=== PATIENT | male | born 1965 | race Caucasian/White ===

== ENCOUNTER 2023-10-13 14:24 | Outpatient (CLI) | payer OTHER, SELFPAY ==
--- NOTE | ~2023-10-13 | CT_ITS ---
EXAMINATION: CT lumbar spine wo con DATE: 10/13/2023 14:40 INDICATION: Low back pain. Right-sided lumbar radiculopathy. TECHNIQUE: Computed tomography (CT) of the lumbar spine was performed without intravenous contrast. A utomated exposure control and iterative reconstruction technique were employed. The dose-length produ ct was 473.76 mGy-cm. COMPARISON: None FINDINGS: There is 4 degrees dextrocurvature of lumbar spine. There is 3 mm retrolisthesis of T11 on T12. There are lytic lesions involving all bones. There is severely decreased disc height at T11-T12, mildly decreased disc height at T12-L1 and L1-L2, and severely decreased disc height from L2-L3 thro ugh L5-S1. The following disc levels are specifically discussed: L1-L2: The disc is bulging. There is mild bilateral facet joint osteoarthritis. There is mild bilater al neural foraminal stenosis. There is mild central canal stenosis. L2-L3: The disc is bulging. There is severe bilateral facet joint osteoarthritis. There is mild bilat eral neural foraminal stenosis. There is mild central canal stenosis. L3-L4: The disc is bulging. There is severe bilateral facet joint osteoarthritis. There is moderate b ilateral neural foraminal stenosis. There is mild central canal stenosis. L4-L5: The disc is bulging. There is severe bilateral facet joint osteoarthritis. There is moderate b ilateral neural foraminal stenosis. There is mild central canal stenosis. L5-S1: The disc is bulging. There is severe bilateral facet joint osteoarthritis. There is moderate b ilateral neural foraminal stenosis. There is mild central canal stenosis. IMPRESSION: 1. Widespread lytic bone lesions, consistent with multiple myeloma versus metastatic disease. 2. Severe lumbar spondylosis. Reviewed, dictated and finalized at location E. IMPRESSION: 1. Widespread lytic bone lesions, consistent with multiple myeloma versus metas tatic disease. 2. Severe lumbar spondylosis.
== END 2023-10-13 14:25 ==
PROVIDERS: PCP Family Medicine; Visit Provider Family Medicine
DX: M51.36 Other intervertebral disc degeneration, lumbar region (principal); M43.06 Spondylolysis, lumbar region
CPT/HCPCS: 72131

== ENCOUNTER 2023-10-22 12:46 | Outpatient (CLI) | payer OTHER, SELFPAY ==
--- NOTE | ~2023-10-22 | CT_ITS ---
EXAMINATION: CT soft tiss nk chst ab pel w DATE: 10/22/2023 13:28 INDICATION: Lytic bone lesions. Tonsil cancer. TECHNIQUE: Computed tomography (CT) of the neck, chest, abdomen, and pelvis was performed with 100 mL Omnipaque 350 intravenous contrast. Automated exposure control and iterative reconstruction techniqu e were employed. The dose-length product was 1415.74 mGy-cm. COMPARISON: None FINDINGS: NECK CT: There is a 2.6 cm extra-axial mass in left frontal temporal region with skull involvement. There are no pathologically enlarged lymph nodes. CHEST CT: There is mild emphysema. There is mild atelectasis bilaterally. There is a small left pleural effusio n with nodular pleural thickening. The heart size is normal. No pericardial effusion. There is bilate ral gynecomastia. There is a small sliding hiatal hernia. There are multiple scattered lytic lesions of bone including the sternum, most levels of the spine, the right scapula, and the left ninth rib. T here is a healing fracture of left 10th rib. ABDOMEN/PELVIS CT: There is a 10 mm cyst in the liver. The gallbladder is contracted. Calcifications in the spleen are c onsistent with old granulomatous disease. The pancreas, adrenal glands, and kidneys are normal. The p rostate is moderately enlarged. There is diverticulosis of the colon without evidence of diverticulit is. There are no dilated loops of bowel. The appendix is normal. There is a mildly enlarged left para -aortic node. There are bilateral inguinal hernias containing fat. There are scattered lytic lesions with involvement of the pelvis and all lumbar spine levels. IMPRESSION: 1. Widespread lytic lesions of bone and left-sided small malignant pleural effusion, consistent with metastatic disease versus multiple myeloma. Consider ultrasound-guided core needle biopsy of the pleu ra. 2. Mildly enlarged left para-aortic lymph node. 3. 2.6 cm extra-axial mass in left frontal temporal region with skull involvement, which may be metas tatic disease or multiple myeloma or a meningioma. Reviewed, dictated and finalized at location A. IMPRESSION: 1. Widespread lytic lesions of bone and left-sided small malignant pleural effu lincoln, consistent with metastatic disease versus multiple myeloma. Consider ultr asound-guided core needle biopsy of the pleura. 2. Mildly enlarged left para-aortic lymph node. 3. 2.6 cm extra-axial mass in left frontal temporal region with skull involveme nt, which may be metastatic disease or multiple myeloma or a meningioma.
== END 2023-10-22 12:47 ==
LOC: MICIMG 12:47
PROVIDERS: PCP Family Medicine; Visit Provider Family Medicine
DX: M89.9 Disorder of bone, unspecified (principal); Z85.818 Personal history of malignant neoplasm of other sites of lip, oral cavity, and pharynx
CPT/HCPCS: 70491; 71260; 74177; Q9967

== ENCOUNTER 2023-10-29 13:49 | Outpatient (CLI) | payer OTHER, SELFPAY ==
--- NOTE | ~2023-10-29 | MR_ITS ---
EXAMINATION: MR brain/brain stem wo/w con DATE: 10/29/2023 14:25 INDICATION: Tonsil cancer. Skull mass. TECHNIQUE: Magnetic resonance imaging (MRI) of the brain and brainstem was performed without and with 14 mL MultiHance intravenous contrast. COMPARISON: CT neck 04/22/2024 FINDINGS: There are scattered areas of nonspecific increased T2-weighted signal intensity in the cere bral white matter, which is within normal limits for the patient's age. In the left frontal temporal region, there is a 4.1 x 2.8 x 4.8 cm extra-axial mass with skull involvement, dural tails, and tempo ralis muscle involvement. There is no acute ischemic infarct or intracranial hemorrhage. The ventricl es are normal in size. The orbits are normal. The paranasal sinuses are clear. IMPRESSION: 1. 4.8 cm extra-axial mass in the left frontal temporal region with skull involvement and temporalis muscle involvement, most likely metastatic disease or multiple myeloma. Reviewed, dictated and finalized at location A. IMPRESSION: 1. 4.8 cm extra-axial mass in the left frontal temporal region with skull invol vement and temporalis muscle involvement, most likely metastatic disease or mul tiple myeloma.
== END 2023-10-29 13:50 ==
PROVIDERS: Visit Provider Family Medicine
DX: M89.9 Disorder of bone, unspecified (principal)
CPT/HCPCS: 70553; A9577

== ENCOUNTER 2024-03-19 17:44 | Inpatient (IN) | payer OTHER, SELFPAY ==
[2024-03-19] VITALS (7 sets, daily range): BP systolic 149–156; BP diastolic 92–104; PULSE 84–94; RESP 16–28; TEMP 36.3–36.9; O2SAT 90–98; BMI 27.3
--- NOTE | ~2024-03-19 | XR_ITS ---
EXAMINATION: XR chest 2V DATE: 03/19/2024 18:20 INDICATION: Fluid on lungs. TECHNIQUE: Frontal and lateral views of the chest were obtained. COMPARISON: Chest CT 10/22/2023 FINDINGS: A calcified right lung nodule and calcified right hilar lymph nodes are consistent with old granulomatous disease. There is a trace right pleural effusion. There is a large left pleural effusi on. There are airspace opacities at left lung base. No pneumothorax. The heart size is obscured. IMPRESSION: 1. Large left pleural effusion. 2. Airspace opacities at left lung base, consistent with atelectasis versus pneumonia. Reviewed, dictated and finalized at location A. CULTURAL SYSTEMS SPECIALIST IMPRESSION: 1. Large left pleural effusion. 2. Airspace opacities at left lung base, consistent with atelectasis versus pne umonia.
--- NOTE | ~2024-03-19 | US_ITS ---
EXAMINATION: US thoracentesis DATE: 03/20/2024 11:15 INDICATION: Large left pleural effusion TECHNIQUE: The procedure and its risks and benefits were discussed with the patient. Potential risks discussed included bleeding, infection, and pneumothorax. The patient understood the risks and agreed to proceed. The skin was prepped and draped in sterile fashion. 1% lidocaine was used for local anes thesia. Under ultrasound guidance, a 5 Fr catheter with trochar was advanced into the left pleural ef fusion. Fluid was aspirated. The catheter was removed, and a dressing was applied. There were no imme diate complications. FINDINGS: Ultrasound images demonstrate a large left pleural effusion and the catheter within the fluid. IMPRESSION: 1. Successful ultrasound-guided thoracentesis yielding 1100 mL of clear yellow fluid. Reviewed, dictated and finalized at location A. INUOUS MINER OPERATOR
--- NOTE | ~2024-03-19 | XR_ITS ---
EXAMINATION: [id number] DATE: 03/20/2024 10:51 INDICATION: Large left pleural effusion postthoracentesis TECHNIQUE: PA and lateral views of the chest were obtained. COMPARISON: 03/19/2024 at 6:15 PM FINDINGS: Decrease in size of a still large left pleural effusion with opacification of the left mid to lower l isidoro zone. Right lung remains clear. No pulmonary edema in the aerated portions the lungs. No pneumoth orax or right-sided pleural effusion. The left side of the cardiac silhouette is obscured. Mild upper thoracic levocurvature and mild mid thoracic dextrocurvature. Multiple chronic compression fractures in the mid to lower thoracic spine with moderate spondylosis. Destruction of a significant portion o f the posterior left ninth rib suspicious for metastatic disease. IMPRESSION: 1. Decreased size of a still large left pleural effusion with associated atelectasis. Underlying sarahy gnancy or pneumonia not excludable. 2. Extensive destructive change of the posterior left ninth rib suspicious for metastatic disease. Reviewed, dictated and finalized at location A. RVISOR CONTACT AND SERVICE CLERKS IMPRESSION: 1. Decreased size of a still large left pleural effusion with associated atelec tasis. Underlying malignancy or pneumonia not excludable. 2. Extensive destructive change of the posterior left ninth rib suspicious for metastatic disease.
--- NOTE | 2024-03-19 18:22 | ECG_ITS ---
Test Date: 2024-03-19 18:31:45 Measurements Intervals [place] Rate: 88 P: 41 IL: 160 QRS: 10 QRSD: 93 T: 40 QT: 329 QTc: 398 Interpretive Statements SINUS RHYTHM CANNOT R/O SEPTAL INFARCT, AGE INDETERMINATE BASELINE ARTIFACT- I, II, AVR, AVL, AVF, V1 ABNORMAL ECG No previous ECG available for comparison Electronically Signed On 03-19-2024 19:03:25 BRANDS EDITOR by Lazarus Giraldo D.O.
[2024-03-19 18:40] LABS: Basophils Absolute Auto 0.1 K/mm3 (0.0-0.1); Basophils Percent Auto 0.7 % (0.2-1.2); Eosinophils Absolute Auto 0.2 K/mm3 (0-0.3); Eosinophils Percent Auto 2.1 % (0-4.4); Hematocrit 45.5 % (42.0-52.0); Hemoglobin 15.4 g/dL (14.0-18.0); Immature Granulocyte Absolute 0.06 K/mm3 (0.00-0.031); Immature Granulocyte Percent A 0.7 % (0-0.5); Immature Platelet Fraction Pct 1.5 % (0.9-11.2); Lymphocytes Absolute Auto 0.71 K/mm3 (0.9-3.2); Lymphocytes Percent Auto 8.6 % (18.3-44.2); Mean Corpuscular HGB Conc 33.8 g/dl (32-36); Mean Corpuscular Hemoglobin 30.1 pg (26-34); Mean Corpuscular Volume 88.9 fl (80-100); Mean Platelet Volume 9.3 fl (7.4-10.4); Monocytes Percent Auto 11.9 % (2.6-8.5); Neutrophils Absolute Auto 6.2 K/mm3 (1.3-6.7); Platelet Count Result 387 k/mm3 (150-375); Red Blood Count 5.12 M/mm3 (4.6-6.20); Red Cell Distribution Width 13.6 % (11.5-14.5); White Blood Count 8.2 K/mm3 (4.5-10.0)
[2024-03-19 18:53] LABS: Alanine Aminotransferase 30 U/L (6-50); Albumin Level 4.6 g/dL (3.5-5.1); Alkaline Phosphatase 116 U/L (38-126); Anion Gap 10 mmol/L (4-12); Aspartate Amino Transferase 114 U/L (17-59); Bilirubin,Total 0.5 mg/dL (0.2-1.3); Blood Urea Nitrogen 14 mg/dL (9-20); Calcium 10.2 mg/dL (8.4-10.2); Carbon Dioxide 24 mmol/L (22-30); Chloride 99 mmol/L (98-107); Estimated CRCL calculation 81 ml/min; Estimated Glomerular Filt Rate > 60; Glucose 120 mg/dL (65-110); Potassium 4.1 mmol/L (3.4-5.0); Sodium 133 mmol/L (137-145)
[2024-03-19 18:54] LABS: Lactic Acid Reflex 2.3 mmol/L (0.7-2.0)
[2024-03-19 18:55] LABS: INR 0.9; Prothrombin Time 12.9 Seconds (11.1-14.7)
[2024-03-19 18:56] LABS: Partial Thromboplastin Time 31.2 Seconds (22.3-36.8)
[2024-03-19 19:04] LABS: NT Pro B Type Natriuretic Pept < 20 pg/mL (19.9-100); Troponin I < 0.012 ng/mL (0.000-0.034)
--- NOTE | 2024-03-19 19:37 | ED_ITS ---
HPI - General Adult General Chief complaint: Unspecified <EM Oliveira Last Filed: 03/20/24 01:36> Stated complaint: NEEDS THORACENTESIS <EM Oliveira Last Filed: 03/20/24 01:36> Time Seen by Provider: 03/19/24 18:22 <EM Oliveira Last Filed: 03/20/24 01:36> Source: patient and old records reviewed <EM Oliveira Filed: 03/20/24 01:36> Mode of arrival: ambulatory <EM Oliveira Filed: 03/20/24 01:36> Limitations: no limitations <EM Oliveira Filed: 03/20/24 01:36> History of Present Illness HPI narrative: Patient is a 59 y/o male who presents to the ED with c/o large L sided pleural effusion. Patient has a history of a squamous cell carcinoma and is currently on chemotherapy for this. Sees Dr. Garcia with Oncology at [facility]. Reports he has had a persistent cough over the past 6 weeks. Has had increased shortness breath over the last 1.5 weeks. Was seen by his primary care doctor today and had outpatient chest x-ray performed which showed a large left-sided pleural effusion. Patient was sent to the ED for further evaluation. Patient reports he did have history of previous pleural effusion around 5-6 weeks ago which required drainage. He denies any fevers, peripheral edema, CP. <EM Oliveira Filed: 03/20/24 01:36> Related Data Home medications: Home Medications Medication Instructions Recorded Confirmed albuterol sulfate 90 mcg/actuation 2 puff inhalation Q4-6H PRN 03/19/24 03/19/24 aerosol inhaler Wheezing escitalopram oxalate 10 mg tablet 10 mg PO DAILY 03/19/24 03/19/24 oxycodone 5 mg tablet 5 mg PO BID PRN Pain 03/19/24 03/19/24 tobramycin 0.3 %-dexamethasone 0.1 1 drp LEFT EYE DAILY 03/19/24 03/19/24 % eye drops,suspension <Helen Begrer PA-C - Last Filed: 03/20/24 01:36> Allergies/adverse reactions: Allergies Allergy/AdvReac Type Severity Reaction Status Date / Time No Known Allergies Allergy Verified 03/19/24 18:35 <Helen Berger PA-C - Last Filed: 03/20/24 01:36> Review of Systems Review of Systems: All systems reviewed & are unremarkable except as noted in HPI. <Helen Berger PA-C - Last Filed: 03/20/24 01:36> All systems reviewed & are unremarkable except as noted in HPI and below <Helen Berger PA-C - Last Filed: 03/20/24 01:36> [facility] Social History Social History: Social History Alcohol intake: current Drinks per week: 3 Substance use: never Do You Feel Safe in your Home?: Yes Lack of Transportation: No Lack of Food: Never True Current Housing: I Have Housing Concerned About Future Housing: No Difficulty Paying Gas/Electric Bills: No Difficulty Paying for Meds: No Currently Unemployed: No Education: Bachelor's Degree Difficulty w/ Childcare or Family Care: No Spiritual care concerns: No <Helen Berger PA-C - Last Filed: 03/20/24 01:36> Exam Narrative: GENERAL: Well appearing, well-nourished, non-toxic, in no acute distress. HEAD: Normocephalic, atraumatic. RESPIRATORY: Airway patent, respirations nonlabored. Relatively clear lung sounds on right lung. Decreased lung sounds throughout left lung up to mid to upper lung herrera. CARDIOVASCULAR: Regular rate and rhythm without murmurs, rubs, or gallops. MUSCULOSKELETAL: Moves all extremities. No gross deformities. No peripheral edema. SKIN: Warm, dry, normal color. NEURO: A&O X3. Speech clear. No ataxic movements. PSYCHIATRIC: Appropriate mood and affect. Normal interaction. <Helen Berger PA-C - Last Filed: 03/20/24 01:36> Course ANIMAL DAMAGE CONTROL AGENT/PA Physician Supervision I agree with midlevel documentation; I performed the medical decision making component of this evaluation. I had independent [id number] time with the patient and performed my own independent evaluation and assessment. Patient has a large left-sided pleural effusion on chest x-ray and would benefit from a thoracentesis. Given his cancer history this could be a malignant effusion verses a transudative infusion. He is hemodynamically stable and on room oxygen at this time saturating well. Patient was admitted to the hospital for planned thoracentesis on inpatient basis. <Amor Ramey MD - Last Filed: 03/20/24 08:06> Vital Signs Vital signs: Vital Signs Temperature 36.9 C 03/19/24 17:47 Pulse Rate 94 03/19/24 17:47 Respiratory Rate 20 03/19/24 17:47 Blood Pressure 150/96 H 03/19/24 17:47 Pulse Oximetry 96 03/19/24 17:47 Oxygen Delivery Room Air 03/19/24 17:47 Temperature 36.6 C 03/20/24 06:00 Pulse Rate 86 03/20/24 06:00 Respiratory Rate 18 03/20/24 06:00 Blood Pressure 128/82 03/20/24 06:00 Pulse Oximetry 95 03/20/24 06:00 Oxygen Delivery Room Air 03/19/24 23:51 <Helen Berger PA-C - Last Filed: 03/20/24 01:36> Vital Signs Temperature 36.9 C 03/19/24 17:47 Pulse Rate 94 03/19/24 17:47 Respiratory Rate 20 03/19/24 17:47 Blood Pressure 150/96 H 03/19/24 17:47 Pulse Oximetry 96 03/19/24 17:47 Oxygen Delivery Room Air 03/19/24 17:47 Temperature 36.6 C 03/20/24 06:00 Pulse Rate 86 03/20/24 06:00 Respiratory Rate 18 03/20/24 06:00 Blood Pressure 128/82 03/20/24 06:00 Pulse Oximetry 95 03/20/24 06:00 Oxygen Delivery Room Air 03/19/24 23:51 <Amor Ramey MD - Last Filed: 03/20/24 08:06> Medical Decision Making MDM Narrative Medical decision making narrative: Patient presented to ED with abnormal outpatient chest x-ray, showing large left-sided pleural effusion. Currently undergoing chemotherapy treatment for squamous cell carcinoma. Vital signs are stable upon arrival. Patient is in no acute distress. No respiratory distress. Oxygen stable on room air. Laboratory studies are fairly unremarkable. No leukocytosis. Minimal elevation of lactic acid to 2.3. This normalized without intervention. EKG is without concerning ischemic changes. Troponin undetectable. BNP within normal range. CXR with large L sided pleural effusion. Does show possible pneumonia. Patient denies any recent fevers. He does report having a cough for the last several weeks. Again no leukocytosis. Lesser suspicion for pneumonia. Patient will however require therapeutic thoracentesis. Will place order for this to be performed tomorrow. Patient is not on any anticoagulation. Discussed case with Dr. Dykes, hospitalist, accepted patient for admission. Patient and family in agreement with plan and admission. <EM Oliveira Last Filed: 03/20/24 01:36> Medical Records Medical records reviewed: Yes I reviewed the external patient's medical records. <EM Oliveira Last Filed: 03/20/24 01:36> Vital Signs Vital Signs: Vital Signs Temperature 36.9 C 03/19/24 17:47 Pulse Rate 94 03/19/24 17:47 Respiratory Rate 20 03/19/24 17:47 Blood Pressure 150/96 H 03/19/24 17:47 Pulse Oximetry 96 03/19/24 17:47 Oxygen Delivery Room Air 03/19/24 17:47 Temperature 36.6 C 03/20/24 06:00 Pulse Rate 86 03/20/24 06:00 Respiratory Rate 18 03/20/24 06:00 Blood Pressure 128/82 03/20/24 06:00 Pulse Oximetry 95 03/20/24 06:00 Oxygen Delivery Room Air 03/19/24 23:51 <Helen Berger PA-C - Last Filed: 03/20/24 01:36> Vital Signs Temperature 36.9 C 03/19/24 17:47 Pulse Rate 94 03/19/24 17:47 Respiratory Rate 20 03/19/24 17:47 Blood Pressure 150/96 H 03/19/24 17:47 Pulse Oximetry 96 03/19/24 17:47 Oxygen Delivery Room Air 03/19/24 17:47 Temperature 36.6 C 03/20/24 06:00 Pulse Rate 86 03/20/24 06:00 Respiratory Rate 18 03/20/24 06:00 Blood Pressure 128/82 03/20/24 06:00 Pulse Oximetry 95 03/20/24 06:00 Oxygen Delivery Room Air 03/19/24 23:51 <Amor Ramey MD - Last Filed: 03/20/24 08:06> Lab Data Lab results reviewed: Yes I reviewed the patient's lab results. <Helen Berger PA-C - Last Filed: 03/20/24 01:36> Result diagrams: 03/19/24 18:32 03/19/24 18:32 <Helen Berger PA-C - Last Filed: 03/20/24 01:36> Labs: Lab Results 03/19/24 03/19/24 Range/Units 18:32 21:53 WBC 8.2 (4.5-10.0) K/mm3 RBC 5.12 (4.6-6.20) M/mm3 Hgb 15.4 (14.0-18.0) g/dL Hct 45.5 (42.0-52.0) % MCV 88.9 (80-100) fl MCH 30.1 (26-34) pg MCHC 33.8 (32-36) g/dl RDW 13.6 (11.5-14.5) % Plt Count 387 H (150-375) k/mm3 MPV 9.3 (7.4-10.4) fl Immature Gran % (Auto) 0.7 H (0-0.5) % Neut % (Auto) 76.0 H (45.5-73.1) % Lymph % (Auto) 8.6 L (18.3-44.2) % Rolette % (Auto) 11.9 H (2.6-8.5) % Eos % (Auto) 2.1 (0-4.4) % Baso % (Auto) 0.7 (0.2-1.2) % Lymph # (Auto) 0.71 L (0.9-3.2) K/mm3 Rolette # (Auto) 1.0 H (0.1-0.6) K/mm3 Eos # (Auto) 0.2 (0-0.3) K/mm3 Baso # (Auto) 0.1 (0.0-0.1) K/mm3 Abs Immat Gran (auto) 0.06 H (0.00-0.031) K/mm3 Absolute Neuts (auto) 6.2 (1.3-6.7) K/mm3 Absolute Nucleated RBC 0.000 (0.0-0.012) K/mm3 Nucleated RBC % 0.0 (0.0-0.2) % % Immature Plt Fraction 1.5 (0.9-11.2) % PT 12.9 (11.1-14.7) Seconds INR 0.9 APTT 31.2 (22.3-36.8) Seconds Sodium 133 L (137-145) mmol/L Potassium 4.1 (3.4-5.0) mmol/L Chloride 99 (98-107) mmol/L Carbon Dioxide 24 (22-30) mmol/L Anion Gap 10 (4-12) mmol/L BUN 14 (9-20) mg/dL Creatinine 0.70 (0.7-1.3) mg/dL Estim Creat Clear Calc 81 ml/min Estimated GFR > 60 (59 - ) Glucose 120 H (65-110) mg/dL Lactic Acid 2.3 H 2.0 (0.7-2.0) mmol/L Calcium 10.2 (8.4-10.2) mg/dL Total Bilirubin 0.5 (0.2-1.3) mg/dL AST 114 H (17-59) U/L ALT 30 (6-50) U/L Alkaline Phosphatase 116 (38-126) U/L Troponin I < 0.012 (0.000-0.034) ng/mL NT-Pro-B Natriuret Pep < 20 (19.9-100) pg/mL Total Protein 9.0 H (6.3-8.2) g/dL Albumin 4.6 (3.5-5.1) g/dL <Helen Berger PA-C - Last Filed: 03/20/24 01:36> Lab Results 03/19/24 03/19/24 Range/Units 18:32 21:53 WBC 8.2 (4.5-10.0) K/mm3 RBC 5.12 (4.6-6.20) M/mm3 Hgb 15.4 (14.0-18.0) g/dL Hct 45.5 (42.0-52.0) % MCV 88.9 (80-100) fl MCH 30.1 (26-34) pg MCHC 33.8 (32-36) g/dl RDW 13.6 (11.5-14.5) % Plt Count 387 H (150-375) k/mm3 MPV 9.3 (7.4-10.4) fl Immature Gran % (Auto) 0.7 H (0-0.5) % Neut % (Auto) 76.0 H (45.5-73.1) % Lymph % (Auto) 8.6 L (18.3-44.2) % Rolette % (Auto) 11.9 H (2.6-8.5) % Eos % (Auto) 2.1 (0-4.4) % Baso % (Auto) 0.7 (0.2-1.2) % Lymph # (Auto) 0.71 L (0.9-3.2) K/mm3 Rolette # (Auto) 1.0 H (0.1-0.6) K/mm3 Eos # (Auto) 0.2 (0-0.3) K/mm3 Baso # (Auto) 0.1 (0.0-0.1) K/mm3 Abs Immat Gran (auto) 0.06 H (0.00-0.031) K/mm3 Absolute Neuts (auto) 6.2 (1.3-6.7) K/mm3 Absolute Nucleated RBC 0.000 (0.0-0.012) K/mm3 Nucleated RBC % 0.0 (0.0-0.2) % % Immature Plt Fraction 1.5 (0.9-11.2) % PT 12.9 (11.1-14.7) Seconds INR 0.9 APTT 31.2 (22.3-36.8) Seconds Sodium 133 L (137-145) mmol/L Potassium 4.1 (3.4-5.0) mmol/L Chloride 99 (98-107) mmol/L Carbon Dioxide 24 (22-30) mmol/L Anion Gap 10 (4-12) mmol/L BUN 14 (9-20) mg/dL Creatinine 0.70 (0.7-1.3) mg/dL Estim Creat Clear Calc 81 ml/min Estimated GFR > 60 (59 - ) Glucose 120 H (65-110) mg/dL Lactic Acid 2.3 H 2.0 (0.7-2.0) mmol/L Calcium 10.2 (8.4-10.2) mg/dL Total Bilirubin 0.5 (0.2-1.3) mg/dL AST 114 H (17-59) U/L ALT 30 (6-50) U/L Alkaline Phosphatase 116 (38-126) U/L Troponin I < 0.012 (0.000-0.034) ng/mL NT-Pro-B Natriuret Pep < 20 (19.9-100) pg/mL Total Protein 9.0 H (6.3-8.2) g/dL Albumin 4.6 (3.5-5.1) g/dL <Amor Ramey MD - Last Filed: 03/20/24 08:06> Imaging Data Attestation: I personally reviewed and interpreted this imaging study as follows: <Helen Berger PA-C - Last Filed: 03/20/24 01:36> Radiologist's impression: ITS Impressions Chest X-Ray 03/19/24 18:30 IMPRESSION: 1. Large left pleural effusion. 2. Airspace opacities at left lung base, consistent with atelectasis versus pneumonia. <Helen Berger PA-C - Last Filed: 03/20/24 01:36> ECG Data EKG #1: Attestation: I personally reviewed and interpreted this ECG as follows: <Helen Berger PA-C - Last Filed: 03/20/24 01:36> ECG completion date: 03/19/24 <Helen Berger PA-C - Last Filed: 03/20/24 01:36> ECG completion time: 18:31 <Helen Berger PA-C - Last Filed: 03/20/24 01:36> EKG Interpretation: normal rate (88), sinus rhythm and non-specific ST changes <Helen Berger PA-C - Last Filed: 03/20/24 01:36> Discharge Plan Discharge Clinical Impression: Pleural effusion, Squamous cell carcinoma <EM Oliveira Last Filed: 03/20/24 01:36> Patient Disposition: Still a Patient <EM Oliveira Last Filed: 03/20/24 01:36> Condition: Stable <EM Oliveira Last Filed: 03/20/24 01:36>
[2024-03-19 21:36] LABS: Reflex Lactic Acid Yes or No Add Lactic
--- NOTE | 2024-03-19 23:05 | ADMGEN ---
This patient, Kiet Yousif, was admitted to [facility] Surg Room 316-02. Patient/family oriented to hospital policies and general routines including ID bracelet, bed and alarms, visiting hours, pain management, procedures, bathroom and other care routines, personal items, smoking policy, room service/diet, and visiting hours. Information on how to activate the Rapid Response Team has been discussed. Patient/Family are encouraged to report perceived risks to care and to ask questions if they do not understand what they are told or what they should do.
--- NOTE | 2024-03-19 23:58 | PM.IMHP ---
H&P: HPI History of Present Illness Date/Time: 03/19/24 23:58 Chief Complaint: shortness of breath Narrative: This is a 59-year-old male with past medical history significant for squamous cell carcinoma of the lung, recurrent pleural effusions, patient is undergoing chemotherapy. Comes to the emergency room with sudden onset of shortness of breath, patient denies any fevers, rigors, chills, sputum production. Preliminary workup was significant for large left-sided pleural effusion. Patient has been placed in observation for further evaluation management and treatment. EXAMINATION: XR chest 2V DATE: 03/19/2024 18:20 INDICATION: Fluid on lungs. TECHNIQUE: Frontal and lateral views of the chest were obtained. COMPARISON: Chest CT 10/22/2023 FINDINGS: A calcified right lung nodule and calcified right hilar lymph nodes are consistent with old granulomatous disease. There is a trace right pleural effusion. There is a large left pleural effusion. There are airspace opacities at left lung base. No pneumothorax. The heart size is obscured. IMPRESSION: 1. Large left pleural effusion. 2. Airspace opacities at left lung base, consistent with atelectasis versus pneumonia. Review of Systems Review of Systems: Shortness of breath [facility] Social History Social History Alcohol intake: current Drinks per week: 3 Substance use: never Do You Feel Safe in your Home?: Yes Lack of Transportation: No Lack of Food: Never True Current Housing: I Have Housing Concerned About Future Housing: No Difficulty Paying Gas/Electric Bills: No Difficulty Paying for Meds: No Currently Unemployed: No Education: Bachelor's Degree Difficulty w/ Childcare or Family Care: No Spiritual care concerns: No Meds Home Medications and Allergies Home Medications Medication Instructions Recorded Confirmed Type albuterol sulfate 90 mcg/actuation 2 puff inhalation Q4-6H PRN 03/19/24 03/19/24 History aerosol inhaler Wheezing escitalopram oxalate 10 mg tablet 10 mg PO DAILY 03/19/24 03/19/24 History oxycodone 5 mg tablet 5 mg PO BID PRN Pain 03/19/24 03/19/24 History tobramycin 0.3 %-dexamethasone 0.1 1 drp LEFT EYE DAILY 03/19/24 03/19/24 History % eye drops,suspension Allergies Allergy/AdvReac Type Severity Reaction Status Date / Time No Known Allergies Allergy Verified 03/19/24 18:35 Vital Signs Vital Signs - 24 hr 03/19/24 17:47 03/19/24 18:46 03/19/24 19:17 Temperature 98.4 F Pulse Rate 94 94 Respiratory Rate 20 28 H 22 H Blood Pressure 150/96 H 155/104 H Pulse Oximetry 96 95 98 Oxygen Delivery Room Air 03/19/24 19:17 03/19/24 21:50 03/19/24 23:04 Temperature 98 F 97.6 F 97.4 F L Pulse Rate 93 90 84 Respiratory Rate 25 H 16 22 H Blood Pressure 156/98 H 149/103 H 154/92 H Pulse Oximetry 96 94 90 Oxygen Delivery 03/19/24 23:45 03/19/24 23:51 Temperature Pulse Rate Respiratory Rate Blood Pressure Pulse Oximetry 90 93 Oxygen Delivery Room Air Room Air Exam Narrative: laying in a stretcher Const: General: comfortable, no acute distress, well developed, alert, awake and average body habitus Nutritional Appearance: average body habitus Orientation/consciousness: patient oriented x3 HENMT: Head: normal to inspection, normocephalic and atraumatic Ears: hearing grossly normal bilaterally Face/Nose/Sinus: normal facial exam Face and sinus: normal facial exam Eyes: General: appearance normal, both eyes and all related structures Pupils: Equal, round and reactive pupils present EOM: EOMs intact bilaterally Neck: Neck: full ROM, no lymphadenopathy and no JVD Thyroid: thyroid normal Lymphatic: no lymphadenopathy noted Resp: Effort & Inspection: normal respiratory effort and able to speak in complete sentences Auscultation: diminished lung sounds on the left throughout Cardio: Jugular venous distension: no JVD Rate: regular rate Rhythm: regular rhythm Heart sounds: S1 normal heart sound present and S2 normal heart sound present GI: GI Palp: Yes Soft to palpation and Yes No hepatosplenomegaly present : General: Yes deferred Skin: Rashes: no rashes Wounds: no wounds Neuro: General: patient oriented x3 and CN's II-XI intact bilaterally Cranial nerves: Yes CN's II-XII intact bilaterally and Yes Equal, round and reactive pupils present Cognition (Neuro): normal cognition Speech: normal speech Gait exam (Neuro): Normal gait present Motor exam (neuro): 5/5 motor strength present throughout Extrem: General: normal to inspection, full ROM, no joint enlargement and no pedal edema H&P: Results Labs Labs: Short CBC 03/19/24 Range/Units 18:32 WBC 8.2 (4.5-10.0) K/mm3 Hgb 15.4 (14.0-18.0) g/dL Hct 45.5 (42.0-52.0) % Plt Count 387 H (150-375) k/mm3 BMP 03/19/24 18:32 Sodium 133 L Potassium 4.1 Chloride 99 Carbon Dioxide 24 BUN 14 Creatinine 0.70 Glucose 120 H Calcium 10.2 Cardiac Enzymes 03/19/24 Range/Units 18:32 Troponin I < 0.012 (0.000-0.034) ng/mL Liver Function 03/19/24 Range/Units 18:32 Total Bilirubin 0.5 (0.2-1.3) mg/dL AST 114 H (17-59) U/L ALT 30 (6-50) U/L Alkaline Phosphatase 116 (38-126) U/L Albumin 4.6 (3.5-5.1) g/dL Assessment and Plan Assessment and plan (1) Pleural effusion: Code(s): J90 - Pleural effusion, not elsewhere classified Status: Acute Assessment and Plan: placed in observation thoracentesis in a.m. ultrasound-guided (2) Squamous cell carcinoma: Status: Acute Assessment and Plan: follow-up in outpatient setting (3) Pneumonia: Code(s): J18.9 - Pneumonia, unspecified organism Status: Acute Assessment and Plan: will start on vancomycin cefepime and Zithromax cultures in progress Hospitalist MIPS Advance Care Plan I have confirmed that the patient's Advanced Care Plan is present, code status is documented, or surrogate decision maker is listed in patient medical record.: Yes Medication Reconciliation I have utilized all available resources to obtain, update and review the patients current medications (includes all prescriptions, OTC, herbals, cannabis, and nutritional supplements).: Yes
[2024-03-20] MEDS: CEFEPIME 2 GM/NS 50 ML 2 GM/50 ML BAG IVPB (04:45)
[2024-03-20] MEDS: AZITHROMYCIN 500 MG/NS 250 ML 500 MG/250 ML BAG 250 MG IVPB (05:16)
[2024-03-20 06:00] VITALS: BP 128/82; PULSE 86; RESP 18; TEMP 36.6; O2SAT 95
[2024-03-20 06:07] LABS: MRSA (PCR) NOT DETECTED (NOT DETECTE)
[2024-03-20] MEDS: VANCOMYCIN 1,750 MG/NS 500 ML 1,750 MG/500 ML BAG 250 MG IVPB (06:17)
[2024-03-20 11:08] LABS: pH Pleural Fluid 7.431 (7.210-7.500)
[2024-03-20 11:41] LABS: Appearance Pleural Fluid Clear (Clear); Pleural fluid source Pleural fluid
[2024-03-20 11:42] LABS: Color Pleural Fluid Yellow (Colorless); Lymphocytes Pleural Fluid 36 %; Macrophages Pleural Fluid 10 %; Monocytes Pleural Fluid 15 %; Neutrophils Pleural Fluid 39 % (0-25); Nucleated Cell Pleural Fluid 209 /uL (0-1000); RBC Pleural Fluid < 2000 /uL (0-10000)
--- NOTE | 2024-03-20 12:20 | P.PNIM_ITS ---
Progress Note: A&P Assessment and Plan (1) Pleural effusion: Code(s): J90 - Pleural effusion, not elsewhere classified Status: Acute Assessment and Plan: placed in observation thoracentesis in a.m. ultrasound-guided (2) Squamous cell carcinoma: Status: Acute Assessment and Plan: follow-up in outpatient setting (3) Pneumonia: Code(s): J18.9 - Pneumonia, unspecified organism Status: Acute Assessment and Plan: will start on vancomycin cefepime and Zithromax cultures in progress Subjective Date/time seen: 03/20/24 12:20 Review of Systems Review of Systems: Shortness of breath Objective Data Vital Signs Vital Signs: Vital Signs - 24 hr 03/19/24 17:47 03/19/24 18:46 03/19/24 19:17 Temperature 98.4 F Pulse Rate 94 94 Respiratory Rate 20 28 H 22 H Blood Pressure 150/96 H 155/104 H Pulse Oximetry 96 95 98 Oxygen Delivery Room Air 03/19/24 19:17 03/19/24 21:50 03/19/24 23:04 Temperature 98 F 97.6 F 97.4 F L Pulse Rate 93 90 84 Respiratory Rate 25 H 16 22 H Blood Pressure 156/98 H 149/103 H 154/92 H Pulse Oximetry 96 94 90 Oxygen Delivery 03/19/24 23:45 03/19/24 23:51 03/20/24 06:00 Temperature 97.9 F Pulse Rate 86 Respiratory Rate 18 Blood Pressure 128/82 Pulse Oximetry 90 93 95 Oxygen Delivery Room Air Room Air Intake/Output Intake/Output: Intake & Output 03/17/24 03/18/24 03/19/24 03/20/24 23:59 23:59 23:59 23:59 Intake Total 425 Output Total 1100 Balance -675 Meds/Results Medications: Active Medications Generic Name Dose Route Start Last Admin Trade Name Freq PRN Reason Stop Dose Admin Acetaminophen 650 mg 03/19/24 22:06 Acetaminophen 325 Mg Tablet PO Q4H PRN Mild Pain (1-3) or Fever Acetaminophen 1,000 mg 03/20/24 03:13 Acetaminophen 500 Mg Tablet PO Q6H PRN Mild Pain (1-3) or Fever Al Hydrox/Mg Hydrox/Simethicone 30 ml 03/20/24 03:13 Mag Hydrox/Al Hydrox/Simeth 30 Ml Udc PO Q6H PRN Indigestion Albuterol 2 puff 03/20/24 03:13 Albuterol Sulfate (*Sp) Aerosol 1 Puff INHALATION Q4-6H PRN Wheezing Escitalopram Oxalate 10 mg 03/20/24 21:00 Escitalopram Oxalate 10 Mg Tablet PO HS BULMARO Cefepime HCl 2 gm in 50 mls @ 100 mls/hr 03/20/24 04:00 03/20/24 05:15 Maxipime 2 Gm/Ns 50 Ml IVPB Infused Q12H BULMARO Infusion Azithromycin 500 mg in 250 mls @ 250 mls/hr 03/20/24 04:00 03/20/24 06:16 Zithromax IVPB Infused Q24H BULMARO Infusion Vancomycin HCl 1,500 mg in 500 mls @ 250 mls/hr 03/20/24 18:00 Vancomycin 1,500 Mg/Ns 500 Ml IVPB Q12H BULMARO Ondansetron HCl 4 mg 03/20/24 03:13 Ondansetron Inj 4 Mg/2 Ml Vial IV PUSH Q6H PRN Nausea And Vomiting Oxycodone HCl 5 mg 03/20/24 03:13 Oxycodone Hcl (*Crx) 5 Mg Tab Ir PO BID PRN Pain 7-10 Polyethylene Glycol 17 gm 03/20/24 03:13 Polyethylene Glycol 3350 17 Gm Powd.Pack PO QAM PRN Constipation Radiology Results: ITS Impressions Thoracentesis Ultrasound 03/20/24 11:58 IMPRESSION: 1. Successful ultrasound-guided thoracentesis yielding 1100 mL of clear yellow fluid. Chest X-Ray 03/20/24 12:00 IMPRESSION: 1. Decreased size of a still large left pleural effusion with associated atelectasis. Underlying malignancy or pneumonia not excludable. 2. Extensive destructive change of the posterior left ninth rib suspicious for metastatic disease. Labs Labs: Laboratory Results - last 24 hr 03/19/24 03/19/24 03/20/24 18:32 21:53 04:41 WBC 8.2 RBC 5.12 Hgb 15.4 Hct 45.5 MCV 88.9 MCH 30.1 MCHC 33.8 RDW 13.6 Plt Count 387 H MPV 9.3 Immature Gran % (Auto) 0.7 H Neut % (Auto) 76.0 H Lymph % (Auto) 8.6 L [place] % (Auto) 11.9 H Eos % (Auto) 2.1 Baso % (Auto) 0.7 Lymph # (Auto) 0.71 L [place] # (Auto) 1.0 H Eos # (Auto) 0.2 Baso # (Auto) 0.1 Abs Immat Gran (auto) 0.06 H Absolute Neuts (auto) 6.2 Absolute Nucleated RBC 0.000 Nucleated RBC % 0.0 % Immature Plt Fraction 1.5 PT 12.9 INR 0.9 APTT 31.2 Sodium 133 L Potassium 4.1 Chloride 99 Carbon Dioxide 24 Anion Gap 10 BUN 14 Creatinine 0.70 Estim Creat Clear Calc 81 Estimated GFR > 60 Glucose 120 H Lactic Acid 2.3 H 2.0 Calcium 10.2 Total Bilirubin 0.5 AST 114 H ALT 30 Alkaline Phosphatase 116 Troponin I < 0.012 NT-Pro-B Natriuret Pep < 20 Total Protein 9.0 H Albumin 4.6 Pleural Fluid Source Pleural Color Pleural Appearance Pleural pH Pleural RBC Pleural Nuc Cells Pleural Neutrophils Pleural Lymphocytes Pleural Monocytes Pleural Macrophages Nasal MRSA (PCR) Not detected 03/20/24 10:21 WBC RBC Hgb Hct MCV MCH MCHC RDW Plt Count MPV Immature Gran % (Auto) Neut % (Auto) Lymph % (Auto) [place] % (Auto) Eos % (Auto) Baso % (Auto) Lymph # (Auto) [place] # (Auto) Eos # (Auto) Baso # (Auto) Abs Immat Gran (auto) Absolute Neuts (auto) Absolute Nucleated RBC Nucleated RBC % % Immature Plt Fraction PT INR APTT Sodium Potassium Chloride Carbon Dioxide Anion Gap BUN Creatinine Estim Creat Clear Calc Estimated GFR Glucose Lactic Acid Calcium Total Bilirubin AST ALT Alkaline Phosphatase Troponin I NT-Pro-B Natriuret Pep Total Protein Albumin Pleural Fluid Source Pleural fluid Pleural Color Yellow Pleural Appearance Clear Pleural pH 7.431 Pleural RBC < 2000 Pleural Nuc Cells 209 Pleural Neutrophils 39 H Pleural Lymphocytes 36 Pleural Monocytes 15 Pleural Macrophages 10 Nasal MRSA (PCR)
[2024-03-20 14:00] VITALS: BP 143/86; PULSE 90; RESP 18; TEMP 37.2; O2SAT 94
--- NOTE | 2024-03-20 19:17 | PM.DS ---
DS: Admitting Diagnosis Discharge Date 03/20/2024 Admitting Diagnosis Pleural effusion DS: Discharge Diagnosis Discharge Diagnosis (1) Pleural effusion: Code(s): J90 - Pleural effusion, not elsewhere classified Status: Acute (2) Pneumonia: Code(s): J18.9 - Pneumonia, unspecified organism Status: Acute (3) Squamous cell carcinoma: Status: Acute DS: Summary Hospital Course Reason for hospitalization: 59-year-old male with past medical history significant for squamous cell carcinoma of the lung, recurrent pleural effusions, patient is undergoing chemotherapy. Comes to the emergency room with sudden onset of shortness of breath, patient denies any fevers, rigors, chills, sputum production. Preliminary workup was significant for large left-sided pleural effusion. Patient has been placed in observation for further evaluation management and treatment Hospital Course: Kiet Yousif is a 59 year old with squamous cell carcinoma of the lung, follows at [facility], admitted for a malignant pleural effusion. He reports gradual shortness of breath over 5 weeks. No fever or chills. WBC normal on admission. An Ultrasound guided thoracentesis was done on 03/20 with 1L of fluid removed. Suspect malignant pleural effusion. Cultures pending at discharge. Treating empirically with Augmentin. Discussed option for staying inpatient to wait for cultures but patient has follow up next week with oncology and preferred to discharge home, and overall low suspicion for infectious etiology. Prescribed a course of Augmentin 875mg BID x5 days since cultures pending, resulted negative after discharge. Cytology was consistent with squamous cell carcinoma. If effusions recurrent, could consider Pleurex. Status at Discharge Cognitive/behavioral status at discharge: A&Ox4 Time Spent with Patient Time attestation: Total time spent providing and/or coordinating discharge services: Exam Narrative: General - Awake and alert. No acute distress Eyes - PERRLA, EOM intact ENT - No thrush, No erythema Neck - No noticeable or palpable swelling Lymph Nodes - No lymphadenopathy Cardiovascular - RRR no m/r/g, no JVD Lungs: Lung herrera decreased on the left, improved aeration after thoracentesis, No wheezing, use of accessory muscles Skin - Skin warm and dry, no wounds or rashes Abdomen - Normal bowel sounds, abdomen soft and nontender Extremities - No edema, cyanosis or clubbing Musculoskeletal - 5/5 strength, normal range of motion, no swollen or erythematous joints. Neurological ? Alert and oriented x 3, CN 2-12 grossly intact. Psych: Normal mood and affect DS: Data Data Completed and Pending Pending studies at discharge: Pending at discharge 03/19/24 22:21 Cytology [PTH] Routine Labs on day of discharge: Labs from last 24 hours 03/20/24 03/20/24 03/20/24 10:48 10:21 04:41 WBC RBC Hgb Hct MCV MCH MCHC RDW Plt Count MPV Immature Gran % (Auto) Neut % (Auto) Lymph % (Auto) [place] % (Auto) Eos % (Auto) Baso % (Auto) Lymph # (Auto) [place] # (Auto) Eos # (Auto) Baso # (Auto) Abs Immat Gran (auto) Absolute Neuts (auto) Absolute Nucleated RBC Nucleated RBC % % Immature Plt Fraction Lactic Acid Pleural Fluid Source Pleural fluid Pleural Color Yellow Pleural Appearance Clear Pleural pH 7.431 Pleural RBC < 2000 Pleural Nuc Cells 209 Pleural Neutrophils 39 H Pleural Lymphocytes 36 Pleural Monocytes 15 Pleural Macrophages 10 Pleural Total Protein Pending Pleural LDH Pending Pleural Glucose Pending Pleural Amylase Pending Nasal MRSA (PCR) Not detected 03/19/24 03/19/24 21:53 18:32 WBC 8.2 RBC 5.12 Hgb 15.4 Hct 45.5 MCV 88.9 MCH 30.1 MCHC 33.8 RDW 13.6 Plt Count 387 H MPV 9.3 Immature Gran % (Auto) 0.7 H Neut % (Auto) 76.0 H Lymph % (Auto) 8.6 L [place] % (Auto) 11.9 H Eos % (Auto) 2.1 Baso % (Auto) 0.7 Lymph # (Auto) 0.71 L [place] # (Auto) 1.0 H Eos # (Auto) 0.2 Baso # (Auto) 0.1 Abs Immat Gran (auto) 0.06 H Absolute Neuts (auto) 6.2 Absolute Nucleated RBC 0.000 Nucleated RBC % 0.0 % Immature Plt Fraction 1.5 Lactic Acid 2.0 Pleural Fluid Source Pleural Color Pleural Appearance Pleural pH Pleural RBC Pleural Nuc Cells Pleural Neutrophils Pleural Lymphocytes Pleural Monocytes Pleural Macrophages Pleural Total Protein Pleural LDH Pleural Glucose Pleural Amylase Nasal MRSA (PCR) Discharge Plan Discharge Attending physician on discharge: Ana Garces Consulting providers: Kiet Ferreira; Lazarus Giraldo; Joe Watts V.; Amor Ramey Discharging Clinician: Ana Garces Anticipated Discharge Date/Time: 03/20/24 14:27 Patient Disposition: Home, Self-Care Activity: other - see discharge instructions Diet: regular Discharge Instructions: May remove bandage and shower tomorrow. Follow up with oncology as scheduled next week. Patient Instructions: Antibiotic Form Stand Alone Forms: General Discharge Information Follow-up/Referrals: Vivek Hernandez M.D. [Primary Care Provider] - (Follow up in 1-2 weeks) Discharge Medications: New amoxicillin-pot clavulanate 875-125 mg tablet 1 tablet PO Q12H Qty: 10 0RF Continued albuterol sulfate 90 mcg/actuation HFA aerosol inhaler 2 puff INHALATION Q4-6H PRN (Reason: Wheezing) tobramycin-dexamethasone 0.3-0.1 % drops,suspension 1 drp LEFT EYE DAILY oxycodone 5 mg tablet 5 mg PO BID PRN (Reason: Pain) Rx Instructions: Pt. does not use much as it causes constipation & fatigue escitalopram oxalate 10 mg tablet 10 mg PO DAILY Date of admission: 03/20/24 07:17 Primary Care Provider: Vivek Hernandez Admitting Provider: Cisco Dykes V. Attending physician on admission: Ana Garces Condition: Stable Hospitalist MIPS Heart Failure (Exclusion) Patient has history of Heart Transplant or Left Ventricular Assistive Device?: No IF YES, STOP HERE Heart Failure (Qualifier) Patient has current or prior documentation of LVEF less than or equal to 40%, or mod/servere depressed LVSF?: No IF NO, STOP HERE
[2024-03-26 18:53] LABS: Glucose Pleural Fluid 84 mg/dL
[2024-03-30 21:24] LABS: Amylase, Pleural Fluid 196 U/L; LDH Pleural Fluid 325 U/L; Total Protein Pleural Fluid 4.4 g/dL
== END 2024-03-20 15:10 | disposition home or self-care (01) | DRG 180 ==
LOC: ANHED 18:26 → ANH3MEDSUR 22:47
PROVIDERS: Admitting Provider Internal Medicine; Emergency Provider Physician Assistant; PCP Family Medicine; Visit Provider Nurse Practitioner Acute Care
DX: C34.90 Malignant neoplasm of unspecified part of unspecified bronchus or lung (principal); J18.9 Pneumonia, unspecified organism; J91.0 Malignant pleural effusion
CPT/HCPCS: 32555; 36415; 71046; 80053; 82150; 82945; 83605; 83615; 83880; 83986; 84157; 84484; 85025; 85055; 85610; 85730; 87040; 87070; 87075; 87205; 87641; 88108; 88305; 88342; 89051; 93005; 96365; 96367; 99285; G0378; J0456; J0692; J3370

== ENCOUNTER 2024-08-07 22:08 | Observation (INO) | payer BC, SELFPAY ==
--- NOTE | ~2024-08-07 | XR_ITS ---
EXAMINATION: [id number] DATE: 08/09/2024 11:14 INDICATION: Status post left thoracentesis TECHNIQUE: frontal view of the chest was obtained. COMPARISON: Chest radiograph dated 08/08/2023 FINDINGS: Interval decrease in size of a now small to moderate left pleural effusion. There is improved aeratio n of the left lung with decreased atelectasis including reexpansion of a portion of the previously co llapsed left lower lobe. Persistent airspace opacities at the medial left lower lung zone including a tiny right pleural effusion. Cardiac silhouette is largely obscured. Right jugular central venous po rt catheter with distal tip at the superior cavoatrial junction. Old healed posterior right fourth ri b fracture IMPRESSION: 1. Improved aeration in the left lung with decrease in size of a now small to moderate left pleural e ffusion postthoracentesis. No pneumothorax. 2. Airspace opacities in the left mid and lower and right lower lung zones which could represent atel ectasis, pneumonia or malignancy. Reviewed, dictated and finalized at location A. IMPRESSION: 1. Improved aeration in the left lung with decrease in size of a now small to m oderate left pleural effusion postthoracentesis. No pneumothorax. 2. Airspace opacities in the left mid and lower and right lower lung zones whic h could represent atelectasis, pneumonia or malignancy.
--- NOTE | ~2024-08-07 | US_ITS ---
EXAMINATION: US thoracentesis DATE: 08/09/2024 11:13 INDICATION: Large left pleural effusion TECHNIQUE: The procedure and its risks and benefits were discussed with the patient. Potential risks discussed included bleeding, infection, and pneumothorax. The patient understood the risks and agreed to proceed. The skin was prepped and draped in sterile fashion. 1% lidocaine was used for local anes thesia. Under ultrasound guidance, a 5 Fr catheter with trochar was advanced into the left pleural ef fusion. Fluid was aspirated. The catheter was removed, and a dressing was applied. There were no imme diate complications. FINDINGS: Ultrasound images demonstrate a large complex left pleural effusion with a few thin internal septatio ns and with thickened parietal pleura. Subsequent images demonstrate the catheter within the fluid. IMPRESSION: 1. Successful ultrasound-guided thoracentesis yielding 1150 mL of dark reddish fluid. Reviewed, dictated and finalized at location A.
--- NOTE | ~2024-08-07 | XR_ITS ---
XR chest 2V Ordering provider: Ar Rivas MD History: 59 years Male with . Shortness of breath, history of pleural effusion . Comparison: March 19, 2024 FINDINGS: MEDIASTINUM: The cardiac silhouette is slightly enlarged.. Right Port-A-Cath with the tip overlying s uperior vena cava. LUNGS: No pneumothorax. Large left pleural effusion with adjacent atelectasis versus pneumonia. Opaci fication in the right lung base suggestive of atelectasis versus pneumonia. OTHER: No free air under the diaphragm. IMPRESSION: Large left pleural effusion involving almost all of the left hemithorax with adjacent atelectasis caesar jackeline pneumonia. Right basilar atelectasis versus pneumonia. Reviewed, dictated and finalized at location A. IMPRESSION: Large left pleural effusion involving almost all of the left hemithorax with ad jacent atelectasis versus pneumonia. Right basilar atelectasis versus pneumonia.
[2024-08-07 22:11] VITALS: BP 129/99; PULSE 97; RESP 26; O2SAT 99
[2024-08-07 22:16] VITALS: PULSE 103; O2SAT 99
[2024-08-07 22:18] VITALS: O2SAT 99
--- NOTE | 2024-08-07 22:19 | ECG_ITS ---
Test Date: 2024-08-07 22:15:23 Measurements Intervals [place] Rate: 97 P: 51 MD: 123 QRS: 18 QRSD: 95 T: 54 QT: 328 QTc: 418 Interpretive Statements SINUS RHYTHM MINIMAL Q WAVES- INFERIOR LEADS BORDERLINE ECG Compared to ECG 03/19/2024 18:31:45 NO SIGNIFICANT CHANGE Electronically Signed On 08-08-2024 07:29:43 CDT by Lazarus Giraldo D.O.
--- OUTSIDE RECORDS SUMMARY | 2024-08-07 22:40 | XMS_ITS | Clinical Summary ---
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
--- OUTSIDE RECORDS SUMMARY | 2024-08-07 22:40 | XMS_ITS | Encounter Summary ---
Author Organization [facility] Address 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
--- OUTSIDE RECORDS SUMMARY | 2024-08-07 22:41 | XMS_ITS | Encounter Summary ---
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) Procedures IR Port Placement Chest > 5 Years Leola Alvarez NP [address] [place] [address] Phone: tel: fax: [address] [address] Referral ID Status Reason Start Date Expiration Date Visits Re quested Visits Authorized [id number] Closed 07/29/2024 08/28/2025 1 1 Reason for Visit * Diagnostic Imaging (Routine) - Closed Specialty Diagnoses / Procedures Referred By Contac t Referred To Contact Radiology Diagnoses 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) Procedures IR Port Placement Chest > 5 Years Leola Alvarez NP [address] [place] [address] Phone: tel: fax: [facility] [address] [place] [address] Referral ID Status Reason Start Date Expiration Date Visits Re quested Visits Authorized [id number] Closed 07/29/2024 08/28/2025 1 1 Encounter Details Date Type Department Care Team (Latest Contact Info) Description 08/05/2024 6:53 AM CDT - 08/05/2024 11:59 PM CDT Hospital Encounter [facility] Radiology [facility] [address] [place] [address] Tonsil cancer (HCC); 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 Monthly or less 12/09/2023 Q2: How many drinks containi ng alcohol do you have on a typical day when you are drinking? 1 or 2 12/09/2023 Q3: How often do you have si x or more drinks on one occasion? Less than monthly 12/09/2023 Personal Safety Answer Date Recorded Have you ever been in or are you currently in a harmful physical or emotional relationship or is someone making you feel afraid or unsafe? 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 Gender Identity Not on file Sexual Orientation Not on file documented as of this encounter Last Filed Vital Signs Vital Sign Reading Time Taken Comments Blood Pressure 130/86 08/05/2024 9:13 AM CDT Pulse 93 08/05/2024 9:13 AM CDT Temperature 36.3 C (97.3 F) 08/05/2024 7:15 AM CDT Respiratory Rate 20 08/05/2024 9:13 AM CDT Oxygen Saturation 93% 08/05/2024 9:13 AM CDT Inhaled Oxygen Concentration - - Weight 61.2 kg (135 lb) 08/05/2024 7:25 AM CDT Height - - Body Mass Index 23.17 05/27/2024 8:04 AM NETWORK SPECIALIST documented in this encounter Discharge Instructions * Discharge Instructions* Mark Serna PA - 08/05/2024 7:50 AM CDT Interventional Radiology Outpatient Discharge Instructions/Note Diagnosis:Tonsillar cancer Procedure:Port placement Limitations: [x] No lifting greater than 5 pounds with the arm on the same side as the port for 7 days. [x] You received medication that may affect your judgement. Stay with a responsible person today. Do not drive, operate machinery, make any legal or important decisions, or drink alcohol until tomorrow. No smoking unless another adult is present. Other Diet: You may resume your previous diet. Medication: [x] Usual medications; check with your regular doctor for any questions. Do not take any new pain medicine, sleeping pills or sedatives unless approved by your doctor. [] Prescriptions given for: Procedure Site Care: [] teaching sheet given [x] Skin glue was used to close your incision. See teaching sheet. [x] You may shower tomorrow and allow water to run over the site. Please keep the area out of the direct stream of water and do not scrub the incisions until the glue begins to fall off. [x] No submerging the incisions in water (i.e. swimming pools, hot tubs, or baths) for 2-3 weeks or until incisions completely heal. Once fully healed, please wait 48 hours after the port is used before submerging the port site under water and wait 1 hour before you shower. [x] No lotions, ointments, or creams over the incisions for 2-3 weeks. To contact an Interventional Radiologist at [facility] call [phone] Friday through Friday from 7:30am-4:30pm. At all other times call [phone] and ask that the Interventional Radiologist be paged. To contact an Interventional Radiologist at [facility] call [phone] Friday through Friday from 7:30am-3:30pm. To contact an Interventional Radiologist RN at [facility] call [phone] Friday through Friday from 7:00 am-5:00 pm. To schedule an appointment with Interventional Radiology at [facility] call [phone] Friday through Friday from 7:30 am-4:00 pm. For after hours, follow the telephone recording prompts to reach the on-call Interventional Radiology physician. Special instructions: Please call Interventional Radiology for any procedure related questions or problems including: Extreme swelling or bruising at the site. Unusual drainage or bleeding from procedure site. Fever of 101.5 F for more than 24 hours. Severe procedure related pain. Follow up care: [] Return to Interventional Radiology on at Please come to: [] 3rd Floor [facility] [] 4th [facility] [] [facility] [] [facility] Please call [phone] if you need to schedule a follow up appointment. 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 120 tablet 3 5 tobramycin-dexA METHasone (TOBRADEX) ophthalmic solution Administer 1 drop into affected eye(s) 2 (two) times a day 4 documented as of this encounter Discharge Disposition Disposition Code Departure Means Destination Discharge to home or self care documented in this encounter Miscellaneous Notes * Post-Procedure Note - Mark Serna PA - 08/05/2024 8:00 AM CDT Radiology Brief Post Procedure Note Provider: FRANKLYN Mo Sedation/Anesthesia: Min Sedation Pre-Op/Pre-Procedure Diagnosis: Tonsillar cancer Post-Op/Post-Procedure Diagnosis: same Procedure Performed: Port placement Procedure Findings: Patent right IJV. Tip at cavo-atrial junction. The catheter is ready for immediate use. Complications: None Estimated Blood Loss: < 30 ml Specimens: None Condition: Stable Full report to follow. * Pre-Procedure Note - Mark Serna PA - 08/05/2024 8:00 AM CDT PRE-SEDATION ASSESSMENT/H&P Patient is a 59 y.o. male with chief complaint of tonsillar cancer. 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 Not on any blood thinners. H/o LIZ. Of note, patient had a right chest port placed at an outside hospital, which was removed in 2019 after completion of treatment. 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 Purulent postnasal drainage 10/07/2019 Encounter for management of implanted device 08/04/2018 Head and neck cancer (HCC) 06/23/2018 Tonsil cancer (HCC) 06/22/2018 History of Sedation/Anesthesia Complications: No History of Difficult Airway: No HISTORY PSH Past Surgical History: Procedure Laterality Date COLONOSCOPY NECK LESION BIOPSY Left 06/03/2018 ultrasound guided FNA SUPERFICIAL BONE BIOPSY N/A 11/28/2023 US GUIDED THORACENTESIS N/A 02/24/2024 US GUIDED THORACENTESIS N/A 04/01/2024 US GUIDED THORACENTESIS N/A 04/14/2024 US GUIDED THORACENTESIS N/A 04/27/2024 US GUIDED THORACENTESIS N/A 05/04/2024 US GUIDED THORACENTESIS N/A 05/17/2024 US GUIDED THORACENTESIS N/A 05/28/2024 US GUIDED THORACENTESIS N/A 06/04/2024 US GUIDED THORACENTESIS N/A 06/11/2024 US GUIDED THORACENTESIS N/A 06/22/2024 US GUIDED THORACENTESIS N/A 07/06/2024 US GUIDED THORACENTESIS N/A 07/13/2024 US GUIDED THORACENTESIS N/A 07/23/2024 US GUIDED THORACENTESIS N/A 07/30/2024 US GUIDED THORACENTESIS N/A 08/04/2024 Social History: Social History Tobacco Use Smoking status: Former Current packs/day: 0.00 Average packs/day: 1 pack/day for 10.0 years (10.0 ttl pk-yrs) Types: Cigarettes Start date: 1984 Quit date: 1994 Years since quittin.2 Passive exposure: Never Smokeless tobacco: Former Types: Chew Quit date: 2004 Substance and Sexual Activity Drug use: Yes Types: Alcohol Sexual activity: Defer Alcohol Use: Not At Risk (12/09/2023) AUDIT-C Frequency of Alcohol Consumption: Monthly or less Average Number of Drinks: 1 or 2 Frequency of Binge Drinking: Less than monthly Family History: Family History Problem Relation Age of Onset Lung cancer Father Heart disease Father REVIEW OF SYSTEMS: Review of systems per HPI and otherwise all other systems are negative MEDICATIONS Current Meds: Current Outpatient Medications: albuterol HFA (PROVENTIL HFA,VENTOLIN HFA,PROAIR HFA) 90 mcg/actuation inhaler, , Disp: , Rfl: cholecalciferol 400 unit capsule, Take 1 tablet/capsule (400 Units total) by mouth daily, Disp: , Rfl: escitalopram (LEXAPRO) 10 mg tablet, Take 1 tablet (10 mg total) by mouth daily, Disp: , Rfl: mirtazapine (REMERON) 15 mg tablet, Take 1 tablet (15 mg total) by mouth nightly, Disp: 30 tablet, Rfl: 0 oxyCODONE (ROXICODONE) 5 mg immediate release tablet, Take 1 tablet (5 mg total) by mouth every 4 (four) hours as needed for pain, Disp: 180 tablet, Rfl: 0 tobramycin-dexAMETHasone (TOBRADEX) ophthalmic solution, Administer 1 drop into affected eye(s) 2 (two) times a day, Disp: , Rfl: cyclobenzaprine (FLEXERIL) 5 mg tablet, Take 1 tablet (5 mg total) by mouth 3 (three) times a day as needed for muscle spasms, Disp: 30 tablet, Rfl: 2 dexAMETHasone (DECADRON) 4 mg tablet, Take 8 mg (2 tabs) by mouth once on Day 2, then 8 mg (2 tabs)twice daily on Days 3 and 4., Disp: 30 tablet, Rfl: 3 omeprazole 20 mg tablet,delayed release (DR/EC), Take by mouth, Disp: , Rfl: ondansetron (ZOFRAN) 8 mg tablet, Take 1 tablet (8 mg total) by mouth every 8 (eight) hours as needed for nausea or vomiting Use if prochlorperazine does not stop nausea., Disp: 24 tablet, Rfl: 3 prochlorperazine (Compazine) 10 mg tablet, Take 1 tablet (10 mg total) by mouth every 6 (six) hoursas needed for nausea or vomiting Use first for nausea., Disp: 120 tablet, Rfl: 3 Current Facility-Administered Medications: Carrier Fluids for Secondary Infusion - 0.9% Sodium Chloride, 30 mL, intravenous, PRN, Jc Grace MD sodium chloride 0.9% flush 0.5-20 mL, 0.5-20 mL, intra-catheter, Q8H Lesly CHAMBERLAIN Kevin Scott, MD sodium chloride 0.9% flush 0.5-20 mL, 0.5-20 mL, intra-catheter, PRN, Jc Grace MD sodium chloride 0.9% flush 10-20 mL, 10-20 mL, intra-catheter, Q12H Lesly CHAMBERLAIN Kevin Scott, MD sodium chloride 0.9% flush 10-20 mL, 10-20 mL, intra-catheter, PRN, Jc Grace MD sodium chloride 0.9% infusion, 30 mL/hr, intravenous, Continuous, Jc Grace MD, LastRate: 30 mL/hr at 08/05/24 07, 30 mL/hr at 08/05/24733 Home Meds: HOME MEDICATIONS : albuterol HFA (PROVENTIL HFA,VENTOLIN HFA,PROAIR HFA) 90 mcg/actuation inhaler cholecalciferol 400 unit capsule escitalopram (LEXAPRO) 10 mg tablet mirtazapine (REMERON) 15 mg tablet oxyCODONE (ROXICODONE) 5 mg immediate release tablet tobramycin-dexAMETHasone (TOBRADEX) ophthalmic solution cyclobenzaprine (FLEXERIL) 5 mg tablet dexAMETHasone (DECADRON) 4 mg tablet omeprazole 20 mg tablet,delayed release (DR/EC) ondansetron (ZOFRAN) 8 mg tablet prochlorperazine (Compazine) 10 mg tablet Allergies: No Known Allergies Vitals: Vitals: 08/05/24 0715 08/05/24724 BP: 124/86 BP Location: Right arm Patient Position: Lying;HOB 30 degrees Pulse: 96 Resp: 27 Temp: 36.3 ??C (97.3 ??F) TempSrc: Temporal SpO2: 95% Weight: 61.2 kg (135 lb) LABS Pertinent Labs: Recent Labs Lab Units 07/29/24 0904 WBC K/cumm 9.02 HEMOGLOBIN g/dL 10.8* HEMATOCRIT % 32.8* PLATELETS K/cumm 275 Recent Labs Lab Units 07/29/24 0904 SODIUM mmol/L 139 POTASSIUM PLASMA mmol/L 4.5 CHLORIDE mmol/L 101 CO2 mmol/L 25 BUN SERUM mg/dL 18 CREATININE mg/dL 0.78* CALCIUM mg/dL 10.2 AST Units/L 188* ALT Units/L 18 IMAGING Reviewed PERTINENT PHYSICAL EXAM Physical Exam Constitutional: Appearance: Normal appearance. Cardiovascular: Rate and Rhythm: Normal rate and regular rhythm. Heart sounds: Normal heart sounds. Pulmonary: Effort: Pulmonary effort is normal. Breath sounds: Normal breath sounds. Musculoskeletal: Cervical back: Neck supple. Neurological: Mental Status: He is oriented to person, place, and time. 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 PLAN: The catheter is ready for immediate use. Please note that a power injectable port was placed. When treatment is completed, removal can be scheduled by calling [facility] - [phone] [facility] - [phone] Electronically signed by: Mark Serna PA-C Narrative 08/05/2024 10:27 AM CDT EXAMINATION: PORT PLACEMENT USING ULTRASOUND GUIDANCE (STD TECHNIQUE) HISTORY: This is a 59-year-old male with tonsillar cancer, presenting for port placement for chemotherapy. Of note, patient had a right chest port placed at an outside hospital which was removed in 2019 after completion of treatment. PROVIDER PRESENCE: Mark Serna PA-C, was present from the beginning to the end of the procedure. Julia AREVALO was also present during the procedure. SEDATION: Conscious sedation was used for the procedure. TECHNIQUE: The risks, benefits and alternatives were discussed and informed consent was obtained. Prior to beginning the procedure, [facility] Protocol was used to confirm the patient's identity and planned procedure. Fluoroscopy time has been recorded in the electronic medical record. Prior to the procedure, the central veins were evaluated by ultrasound, an image of the patent vein was recorded and placed in the patient's electronic medical record. Maximum sterile barriers including cap, mask, hand hygiene, sterile gloves, sterile gown, large sterile drape and 2% chlorhexidine for cutaneous antisepsis were used. The skin over the right internal jugular vein was sterilely prepped, draped and infiltrated with 1% buffered lidocaine. The vein was accessed with a 21 gauge needle using realtime ultrasound guidance. A guidewire and catheter were then passed centrally using fluoroscopic guidance. The intravascular length from the access site to the right atrium was then measured. After infiltrating the skin in the subclavicular region with 1% buffered lidocaine, a short transverse incision was made and the pocket for the Low Profile power injectable reservoir was formed by blunt dissection. The catheter was tunneled to the IJ access site, cut to the appropriate length and inserted through a peel-away sheath. The catheter was flushed with 100U/ml heparin and the access needle left in place as patient has chemotherapy today. The deep tissues were approximated using 4-0 Monocryl and 2-0 Vicryl and the incision closed using skin glue. The incision in the lower neck was closed in a similar fashion using 4-0 Monocryl and covered with skin glue. ESTIMATED BLOOD LOSS: Minimal. CONDITION: Stable DISCHARGED TO: outpatient recovery. FINDINGS: Ultrasound image shows a patent vein in the lower neck. The final fluoroscopic image demonstrates the catheter with its tip at the cavoatrial junction. No complications are seen. Procedure Note Mark Serna PA - 08/05/2024 EXAMINATION: PORT PLACEMENT USING ULTRASOUND GUIDANCE (STD TECHNIQUE) HISTORY: This is a 59-year-old male with tonsillar cancer, presenting for port placement for chemotherapy. Of note, patient had a right chest port placed at an outside hospital which was removed in 2019 after completion of treatment. PROVIDER PRESENCE: Mark Serna PA-C, was present from the beginning to the end of the procedure. Julia AREVALO was also present during the procedure. SEDATION: Conscious sedation was used for the procedure. TECHNIQUE: The risks, benefits and alternatives were discussed and informed consent was obtained. Prior to beginning the procedure, [facility] Protocol was used to confirm the patient's identity and planned procedure. Fluoroscopy time has been recorded in the electronic medical record. Prior to the procedure, the central veins were evaluated by ultrasound, an image of the patent vein was recorded and placed in the patient's electronic medical record. Maximum sterile barriers including cap, mask, hand hygiene, sterile gloves, sterile gown, large sterile drape and 2% chlorhexidine for cutaneous antisepsis were used. The skin over the right internal jugular vein was sterilely prepped, draped and infiltrated with 1% buffered lidocaine. The vein was accessed with a 21 gauge needle using realtime ultrasound guidance. A guidewire and catheter were then passed centrally using fluoroscopic guidance. The intravascular length from the access site to the right atrium was then measured. After infiltrating the skin in the subclavicular region with 1% buffered lidocaine, a short transverse incision was made and the pocket for the Low Profile power injectable reservoir was formed by blunt dissection. The catheter was tunneled to the IJ access site, cut to the appropriate length and inserted through a peel-away sheath. The catheter was flushed with 100U/ml heparin and the access needle left in place as patient has chemotherapy today. The deep tissues were approximated using 4-0 Monocryl and 2-0 Vicryl and the incision closed using skin glue. The incision in the lower neck was closed in a similar fashion using 4-0 Monocryl and covered with skin glue. ESTIMATED BLOOD LOSS: Minimal. CONDITION: Stable DISCHARGED TO: outpatient recovery. FINDINGS: Ultrasound image shows a patent vein in the lower neck. The final fluoroscopic image demonstrates the catheter with its tip at the cavoatrial junction. No complications are seen. IMPRESSION: Successful chest wall port placement. PLAN: The catheter is ready for immediate use. Please note that a power injectable port was placed. 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) Secondary malignant neoplasm of bone and bone marrow Head and neck cancer (HCC) documented in this encounter Administered Medications Inactive Administered Medications - up to 3 most recent administrations Medication Order MAR Action Action Date Dose Rate Site fentaNYL (SUBLIMAZE) preservative free injection intravenous, As needed, Starting on Yolande 08/05/24 at 0820, Intra-Op Given 08/05/2024 8:20 AM CDT 50 mcg heparin 100 unit/mL injection As needed, Starting on Yolande 08/05/24 at 0902, Intra-Op, Indications: Maintain Patency of Indwelling Vascular CatheterIndications:Maintain Patency of Indwelling Vascular Catheter Given 08/05/2024 9:02 AM CDT 5 mL lidocaine (PF) (XYLOCAINE) 10 mg/mL (1 %) preservative free injection As needed, Starting on Yolande 08/05/24 at 0826, Intra-Procedure (IR), Indications: Administration of Local AnesthesiaIndications:Adminis tration of Local Anesthesia Given 08/05/2024 8:34 AM CDT 14 mL Right Chest Given 08/05/2024 8:26 AM CDT 5 mL Ri ght Neck midazolam (VERSED) 1 mg/mL injection Administer over 2 Minutes, As needed, Starting on Yolande 08/05/24 at 0820, Intra-Op Given 08/05/2024 8:20 AM CDT 1 mg sodium chloride 0.9% infusion 30 mL/hr, intravenous, Continuous, Starting on Yolande 08/05/24 at 0800, Pre-Procedure (IR) New Bag 08/05/2024 7:34 AM CDT 30 mL/hr 30 mL/hr documented in this encounter Orders Medications Ordered That Neo ht Not Have Been Administered Count Last Ordered Date First Ordered Date Carrier Fluids for Secondary Infusion - 0.9% Sodium Chloride 1 08/05/2024 midazolam (VERSED) 1 mg/mL injection 1 07/27 sodium chloride 0.9% flush 0.5-20 mL 2 07/27 sodium chloride 0.9% flush 10-20 mL 2 08/05 Discharge Count Last Ordered Date First Orde red Date DISCHARGE PATIENT 1 08/05/2024 documented in this encounter Care Teams Quick Service Technician Relationship Specialty Start Date End Date Vivek Hernandez MD [address] [place] [address] PCP - General 06/05/20 Akhil Nelson II, MD [address] [place] [address] Surgeon Otolaryngology 03/05/21 Melodie Trimble MD [address] [place] [address] Radiation Oncologist Radiation Oncology 03/05/21 Shaggy Perea MD [address] [facility] [address] DIV [place] [address] Consulting Physician Medical Oncology 10/28/23 [place] [address] [place] [id number] [place] [address] Medical Oncologist/Fatback Trimmer Medical Oncology 12/04/23 documented as of this encounter
--- OUTSIDE RECORDS SUMMARY | 2024-08-07 22:41 | XMS_ITS | Referral Summary ---
Author Organization [facility] Address [facility] [place] [address] Care Team Providers Care Glass Vial Filler Name Role Phone Vivek Hernandez MD Primary Care Provider + [phone] Omar ROCK MD, Akhil Neal Unavailable [phone] Melodie Trimble MD Unavailable [phone] Shaggy Perea MD Unavailable [phone] Abdirashid Garcia MD Unavailable [phone] Encounters Date Type Department Care Team Description 08/05/2024 Documentation [facility] Nutrition Counseling 1 [place] [phone] 08/05/2024 10:00 AM CDT Clinical Support [facility] - Lab Collection [address] [place] [address] Head and neck cancer (HCC); Malignant neoplasm of tonsil (HCC); 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) 08/05/2024 10:30 AM CDT Office Visit [facility] Oncology [address] [place] [phone] Abdirashid Garcia MD Tonsil cancer (HCC) (Primary Dx); 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); Head and neck cancer (HCC) Discharge Disposition: Discharge to home or self care 08/04/2024 11:27 AM CDT - 08/04/2024 11:59 PM CDT Hospital Encounter [facility] [address] [place] [address] Arrived Discharge Disposition: Discharge to home or self care 08/04/2024 10:38 AM CDT - 08/04/2024 11:59 PM CDT Hospital Encounter [facility] [address] [place] [address] Pleural effusion, not elsewhere classified Discharge Disposition: Discharge to home or self care 08/03/[address] [facility] [address] [place] [phone] Arti Santiago 08/02/2024 Telephone [facility] Radiology 1 [place] [address] Arti Swanson RN 08/02/[address] [facility] [address] [place] [phone] Arti Santiago 07/30/2024 3:05 PM CDT - 07/30/2024 11:59 PM CDT Hospital Encounter [facility]) [address] [place] [address] [place] [address] Discharge Disposition: Discharge to home or self care 07/30/2024 1:31 PM CDT - 07/30/2024 11:59 PM CDT Hospital Encounter [facility]) [address] [place] [address] Pleural effusion, not elsewhere classified Discharge Disposition: Discharge to home or self care 07/29/2024 9:00 AM CDT Lab [facility] - Lab Collection [address] 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); Head and neck cancer (HCC); Malignant neoplasm of tonsil (HCC) 07/27/2024 7:18 AM CDT - 07/27/2024 11:59 PM CDT Hospital Encounter [facility] [address] [place] [address] Abdirashid Garcia MD Tonsil cancer (HCC); 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); Malignant neoplasm of tonsil (HCC) Discharge Disposition: Discharge to home or self care 07/23/2024 2:38 PM CDT - 07/23/2024 11:59 PM CDT Hospital Encounter [facility]) [address] [place] [address] Discharge Disposition: Discharge to home or self care 07/23/2024 1:28 PM CDT - 07/23/2024 11:59 PM CDT Hospital Encounter [facility] [address] [place] [address] Pleural effusion, not elsewhere classified Discharge Disposition: Discharge to home or self care 07/16/2024 Telephone [facility] Oncology [address] [place] [address] Kaykay Moreno, LAURA caro center 07/14/2024 Telephone [facility] Oncology [address] [place] [phone] Kaykay Moreno RN caro center 07/13/2024 3:18 PM CDT - 07/13/2024 11:59 PM CDT Hospital Encounter [facility] [address] [place] [address] Discharge Disposition: Discharge to home or self care 07/13/2024 2:05 PM CDT - 07/13/2024 11:59 PM CDT Hospital Encounter [facility] ([facility]) [address] [place] [address] Tonsil cancer (HCC); Head and neck cancer (HCC) Discharge Disposition: Discharge to home or self care 07/08/2024 Documentation [facility] Nutrition Counseling 1 [place] [address] 07/08/2024 7:30 AM CDT Lab [facility] - Lab Collection [address] [place] [address] 5 [place] [address] Head and neck cancer (HCC) 07/08/2024 9:30 AM CDT Infusion [facility] - Infusion [address] [place] [address] Floor 5 [place] [address] Head and neck cancer (HCC) (Primary Dx); Tonsil cancer (HCC); 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) 07/08/2024 8:30 AM CDT Office Visit [facility] Oncology [address] [facility] Floor 5 [place] [address] Abdirashid Garcia MD Tonsil cancer (HCC) (Primary Dx); 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); Malignant neoplasm of tonsil (HCC); Head and neck cancer (HCC) 07/07/2024 Telephone [facility] Oncology [address] [place] [phone] Afshan Hurst RN 07/06/2024 7:05 PM CDT Lab [facility] [address] [place] [phone] Head and neck cancer (HCC) 07/06/2024 2:45 PM CDT - 07/06/2024 11:59 PM CDT Hospital Encounter [facility] ([facility]) [address] [place] [address] Discharge Disposition: Discharge to home or self care 07/06/2024 Telephone [facility] Oncology [address] [place] [address] Kaykay Moreno RN 07/06/2024 1:20 PM CDT - 07/06/2024 11:59 PM CDT Hospital Encounter [facility] ([facility]) [address] [place] [address] Pleural effusion, not elsewhere classified; Head and neck cancer (HCC) Discharge Disposition: Discharge to home or self care 07/05/2024 Orders Only [facility] Oncology [address] [place] [address] Afshan Hurst, LAURA Tonsil cancer (HCC) (Primary Dx); Head and neck cancer (HCC) 06/29/2024 Telephone [facility] Oncology [address] [place] [address] Kaykay Moreno RN 06/22/2024 11:19 AM WATER SYSTEMS DESIGNER - 06/22/2024 11:59 PM WATER SYSTEMS DESIGNER Hospital Encounter [facility] ([facility]) [address] [place] [address] Discharge Disposition: Discharge to home or self care 06/22/2024 10:12 AM WATER SYSTEMS DESIGNER - 06/22/2024 11:59 PM WATER SYSTEMS DESIGNER Hospital Encounter [facility] ([facility]) [address] [place] [address] Pleural effusion, not elsewhere classified; Tonsillar cancer (HCC); Head and neck cancer (HCC); Tonsil cancer (HCC) Discharge Disposition: Discharge to home or self care 06/17/2024 9:30 AM WATER SYSTEMS DESIGNER Infusion [facility] [place] - Infusion [address] Floor 5 [place] [address] Head and neck cancer (HCC) (Primary Dx) 06/17/2024 7:30 AM WATER SYSTEMS DESIGNER Lab [facility] [place] - Lab Collection [address] [facility] Floor 5 [place] [address] Head and neck cancer (HCC) 06/17/2024 8:30 AM WATER SYSTEMS DESIGNER Office Visit [facility] Oncology [address] [facility] Floor 5 [place] [address] Abdirashid Garcia MD Head and neck cancer (HCC) (Primary Dx) 06/11/2024 2:25 PM WATER SYSTEMS DESIGNER - 06/11/2024 11:59 PM WATER SYSTEMS DESIGNER Hospital Encounter [facility]) [address] [place] [address] Discharge Disposition: Discharge to home or self care 06/11/2024 1:35 PM WATER SYSTEMS DESIGNER - 06/11/2024 11:59 PM WATER SYSTEMS DESIGNER Hospital Encounter [facility]) [address] [place] [address] Tonsil cancer (HCC) Discharge Disposition: Discharge to home or self care 06/04/2024 2:38 PM WATER SYSTEMS DESIGNER - 06/04/2024 11:59 PM WATER SYSTEMS DESIGNER Hospital Encounter [facility]) [address] [place] [address] Discharge Disposition: Discharge to home or self care 06/04/2024 1:35 PM WATER SYSTEMS DESIGNER - 06/04/2024 11:59 PM WATER SYSTEMS DESIGNER Hospital Encounter [facility]) [address] [place] [address] Tonsil cancer (HCC) Discharge Disposition: Discharge to home or self care 05/28/2024 2:35 PM WATER SYSTEMS DESIGNER - 05/28/2024 11:59 PM WATER SYSTEMS DESIGNER Hospital Encounter [facility] [address] [place] [address] Discharge Disposition: Discharge to home or self care 05/28/2024 1:26 PM WATER SYSTEMS DESIGNER - 05/28/2024 11:59 PM WATER SYSTEMS DESIGNER Hospital Encounter [facility]) [address] [place] [address] Pleural effusion, not elsewhere classified; Tonsil cancer (HCC) Discharge Disposition: Discharge to home or self care 05/27/2024 Telephone [facility] Oncology [address] [place] [phone] Kaykay Moreno RN 05/27/2024 7:30 AM WATER SYSTEMS DESIGNER Lab [facility] - [facility] [address] [facility] Floor 5 [place] [address] Head and neck cancer (HCC) 05/27/2024 9:30 AM WATER SYSTEMS DESIGNER Infusion [facility] - [facility]fusion [address] [facility] Floor 5 [place] [address] Head and neck cancer (HCC) (Primary Dx) 05/27/2024 8:30 AM WATER SYSTEMS DESIGNER Office Visit [facility] Oncology [facility] Floor 5 [place] [phone] Abdirashid Garcia MD Head and neck cancer (HCC) (Primary Dx); Tonsil cancer (HCC) 05/24/2024 Telephone [facility] Oncology [address] [place] [phone] Kaykay Moreno RN 05/17/2024 8:43 AM WATER SYSTEMS DESIGNER - 05/17/2024 11:59 PM WATER SYSTEMS DESIGNER Hospital Encounter [facility] [address] [place] [address] Discharge Disposition: Discharge to home or self care 05/17/2024 7:42 AM WATER SYSTEMS DESIGNER - 05/17/2024 11:59 PM WATER SYSTEMS DESIGNER Hospital Encounter [facility] [address] [place] [address] Tonsil cancer (HCC) Discharge Disposition: Discharge to home or self care 05/12/2024 Orders Only [facility] Oncology [address] [place] [phone] Alfonso Dalton Tonsil cancer (HCC) (Primary Dx) from Last 3 Months Allergies No known active allergies Medications omeprazole 20 mg tablet,delaye d release (DR/EC)Indica tions: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) Take by mouth Active escitalopram (LEXAPRO) 10 mg tablet Take 1 tablet (10 mg total) by mouth daily 024 Active oxyCODONE (ROXICODONE) 5 mg immediate release tabletIndicat ions:Pain Take 1 tablet (5 mg total) by mouth every 4 (four) hours as needed for pain 180 tablet 024 Active albuterol HFA (PROVENTIL HFA,VENTOLIN HFA,PROAIR HFA) 90 mcg/actuation inhaler 024 Active tobramycin-de xAMETHasone (TOBRADEX) ophthalmic solution Administer 1 drop into affected eye(s) 2 (two) times a day 024 Active cholecalcifer ol 400 unit capsule Take 1 tablet/capsule (400 Units total) by mouth daily Active cyclobenzapri ne (FLEXERIL) 5 mg tablet Take 1 tablet (5 mg total) by mouth 3 (three) times a day as needed for muscle spasms 30 tablet 2 025 Active mirtazapine (REMERON) 15 mg tablet Take 1 tablet (15 mg total) by mouth nightly 30 tablet 025 Active dexAMETHasone (DECADRON) 4 mg tabletIndicat ions:Secondar y malignant neoplasm of bone and bone marrow (HCC),Head and neck cancer (HCC),Maligna nt neoplasm of tonsil (HCC) Take 8 mg (2 tabs) by mouth once on Day 2, then 8 mg (2 tabs) twice daily on Days 3 and 4. 30 tablet 3 025 Active ondansetron (ZOFRAN) 8 mg tabletIndicat ions:Secondar y malignant neoplasm of bone and bone marrow (HCC),Head and neck cancer (HCC),Maligna nt neoplasm of tonsil (HCC) Take 1 tablet (8 mg total) by mouth every 8 (eight) hours as needed for nausea or vomiting Use if prochlorperazine does not stop nausea. 24 tablet 3 025 Active prochlorperaz ine (Compazine) 10 mg tabletIndicat ions:Secondar y malignant neoplasm of bone and bone marrow (HCC),Head and neck cancer (HCC),Maligna nt neoplasm of tonsil (HCC) Take 1 tablet (10 mg total) by mouth every 6 (six) hours as needed for nausea or vomiting Use first for nausea. 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 11/07/2023 Ganglion cyst of volar aspect of right wrist 07/2022 Primary osteoarthritis of fi rst carpometacarpal joint of right hand 03/31/2023 Personal history of radiation therapy 03/05/2021 Personal history of malignan t neoplasm of other sites of lip, oral cavity, and pharynx 06/09/2020 Malignant neoplasm of tonsil 10/07/2019 Xerostomia due to radiotherapy 10/07/2019 Purulent postnasal drainage 10/07/2019 Encounter for management of implanted device 12/2018 Head and neck cancer 06/23/2018 Tonsil cancer 06/22/2018 Cancer Staging:Clinical stage from 06/23/2018:Stage I(cT1, cN1, cM0, p16+) - Signed by Adriel Dodge MD on 06/23/2018 Immunizations Immunization Administration Dates Next Due COVID-19 mRNA ([employer] Funding) 0.3 m L (30 mcg) vaccine (12 years and up) 03/13/2024 Influenza, Quadrivalent, Spl it, Intramuscular 03/12/2019,03/17/2018,02/12/2017 Influenza, Quadrivalent, Spl it, Preservative Free, Intramuscular 02/09/2021,01/18/2020 Influenza, Trivalent, IM (MDV) 03/03/2014,2012 Influenza, Unspecified 03/13/2024,03/23/2018 Tdap 02/12/2017 ZOSTER Recombinant 04/13/2021,02/09/2021 Social History Tobacco Use Types Packs/Day Years Used Date Smoking Tobacco: Former Cigarettes 985 - 1994 Passive Smoke Exposure: Never Smokeless Tobacco: Former Chew Quit: 2004 Tobacco Cessation:Counseling Given: Not Answered Alcohol Use Standard Drinks/Week Comments Yes 4 [...] on file Legal Sex 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 Gender Identity Not on file Sexual Orientation Not on file Last Filed Vital Signs Vital Sign Reading Time Taken Comments Blood Pressure 135/89 08/05/2024 6:43 PM CDT Pulse 101 08/05/2024 3:00 PM CDT Temperature 36.8 C (98.2 F) 08/05/2024 3:00 PM CDT Respiratory Rate 16 08/05/2024 3:00 PM CDT Oxygen Saturation 91% 08/05/2024 3:0 0 PM CDT Inhaled Oxygen Concentration - - Weight 62.1 kg (137 lb) 08/05/2024 2:28 PM CDT Pt refused to take off shoes for 's appt at 10:32Am Height 156.9 cm (5' 1.77 ) 08/05/2024 1 :09 PM CDT Body Mass Index 25.24 08/05/2024 1:09 PM CDT Plan of Treatment Not on file Medical Devices Implanted Type Area [employer] Device Identifier Shelf Expiration Date Model / Serial / Lot Pac Right: Chest [employer] Excel[employer] Low Porfile Power Port 8fr 1.6mm 1 Lumen [id number] - [id number] Implanted:Qty: 1 on 08/05/2024 at [facility] [employer] 02/28/2029 [id number] / / [id number] Procedures Procedure Name Priority Date/Time Associated Diagnosis Comments EGFR STAT 08/05/2024 10:09 AM CDT Head and neck cancer (HCC) 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) MANUAL DIFFERENTIAL Routine 08/05/2024 1 0:09 AM CDT Head and neck cancer (HCC) 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) CBC WITH AUTO DIFFERENTIAL Routine 08/05/2024 10:09 AM CDT Head and neck cancer (HCC) 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) COMPREHENSIVE METABOLIC PANEL STAT 08/05/2024 10:09 AM CDT Head and neck cancer (HCC) 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) PORT PLACEMENT CHEST >5 YEARS Schedule Routine, Read Routine (OP Routine) 08/05/2024 9:15 AM CDT 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) XR CHEST 1 VIEW IP Routine 08/04/2024 11:34 AM CDT US GUIDED THORACENTESIS Schedule Routine, Read Routine (OP Routine) 08/04/2024 11:24 AM CDT Pleural effusion, not elsewhere classified XR CHEST 1 VIEW ED Urgent/IP Urgent 07/30/2024 3:14 PM CDT US GUIDED THORACENTESIS Schedule Routine, Read Routine (OP Routine) 07/30/2024 3:06 PM CDT Pleural effusion, not elsewhere classified PROTEIN / CREATININE RATIO, URINE, RANDOM STAT 07/29/2024 9:34 AM CDT Head and neck cancer (HCC) EGFR STAT 07/29/2024 9:04 AM CDT Head and neck cancer (HCC) MANUAL DIFFERENTIAL Routine 07/29/2024 9 :04 AM CDT Head and neck cancer (HCC) T4, FREE Routine 07/29/2024 9:04 AM CDT Head and neck cancer (HCC) TSH Routine 07/29/2024 9:04 AM CDT Head and neck cancer (HCC) MAGNESIUM Routine 07/29/2024 9:04 AM CDT Head and neck cancer (HCC) CBC WITH AUTO DIFFERENTIAL Routine 07/29/2024 9:04 AM CDT Head and neck cancer (HCC) COMPREHENSIVE METABOLIC PANEL STAT 07/29/2024 9:04 AM CDT Head and neck cancer (HCC) CT HEAD W CONTRAST Schedule Routine, Read Routine (OP Routine) 07/27/2024 8:09 AM CDT Tonsil cancer (HCC) 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) CT CHEST ABDOMEN PELVIS W CONTRAST Schedule Routine, Read Routine (OP Routine) 07/27/2024 8:09 AM CDT Tonsil cancer (HCC) 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) CT SOFT TISSUE NECK W CONTRAST Schedule Routine, Read Routine (OP Routine) 07/27/2024 8:09 AM CDT Tonsil cancer (HCC) 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) XR CHEST 1 VIEW ED Urgent/IP Urgent 07/23/2024 2:43 PM CDT US GUIDED THORACENTESIS Schedule Routine, Read Routine (OP Routine) 07/23/2024 2:43 PM CDT Pleural effusion, not elsewhere classified XR CHEST 1 VIEW IP Routine 07/13/2024 3:26 PM CDT US GUIDED THORACENTESIS Schedule Routine, Read Routine (OP Routine) 07/13/2024 3:21 PM CDT Tonsil cancer (HCC) Head and neck cancer (HCC) PROTEIN / CREATININE RATIO, URINE, RANDOM STAT 07/08/2024 7:59 AM CDT Head and neck cancer (HCC) EGFR STAT 07/08/2024 7:38 AM CDT Head and neck cancer (HCC) MANUAL DIFFERENTIAL Routine 07/08/2024 7 :38 AM CDT Head and neck cancer (HCC) COMPREHENSIVE METABOLIC PANEL STAT 07/08/2024 7:38 AM CDT Head and neck cancer (HCC) CBC WITH AUTO DIFFERENTIAL Routine 07/08/2024 7:38 AM CDT Head and neck cancer (HCC) MAGNESIUM Routine 07/08/2024 7:38 AM CDT Head and neck cancer (HCC) TSH Routine 07/08/2024 7:38 AM CDT Head and neck cancer (HCC) T4, FREE Routine 07/08/2024 7:38 AM CDT Head and neck cancer (HCC) EGFR STAT 07/06/2024 3:44 PM CDT Head and neck cancer (HCC) DIFFERENTIAL AUTO Routine 07/06/2024 3:4 4 PM CDT Head and neck cancer (HCC) COMPREHENSIVE METABOLIC PANEL STAT 07/06/2024 3:44 PM CDT Head and neck cancer (HCC) PROTEIN / CREATININE RATIO, URINE, RANDOM STAT 07/06/2024 3:44 PM CDT Head and neck cancer (HCC) CBC WITH AUTO DIFFERENTIAL Routine 07/06/2024 3:44 PM CDT Head and neck cancer (HCC) MAGNESIUM Routine 07/06/2024 3:44 PM CDT Head and neck cancer (HCC) TSH Routine 07/06/2024 3:44 PM CDT Head and neck cancer (HCC) T4, FREE Routine 07/06/2024 3:44 PM CDT Head and neck cancer (HCC) XR CHEST 1 VIEW Pending Discharge 07/06/2024 2:57 PM CDT US GUIDED THORACENTESIS LEFT Schedule Routine, Read Routine (OP Routine) 07/06/2024 2:45 PM CDT Pleural effusion, not elsewhere classified Head and neck cancer (HCC) US GUIDED THORACENTESIS LEFT Schedule Routine, Read Routine (OP Routine) 06/22/2024 11:33 AM WATER SYSTEMS DESIGNER Pleural effusion, not elsewhere classified Tonsillar cancer (HCC) Head and neck cancer (HCC) Tonsil cancer (HCC) XR CHEST 1 VIEW IP Routine 06/22/2024 11:27 AM WATER SYSTEMS DESIGNER PROTEIN / CREATININE RATIO, URINE, RANDOM STAT 06/17/2024 8:13 AM WATER SYSTEMS DESIGNER Head and neck cancer (HCC) EGFR STAT 06/17/2024 8:00 AM WATER SYSTEMS DESIGNER Head and neck cancer (HCC) MANUAL DIFFERENTIAL Routine 06/17/2024 8 :00 AM WATER SYSTEMS DESIGNER Head and neck cancer (HCC) COMPREHENSIVE METABOLIC PANEL STAT 06/17/2024 8:00 AM WATER SYSTEMS DESIGNER Head and neck cancer (HCC) CBC WITH AUTO DIFFERENTIAL Routine 06/17/2024 8:00 AM WATER SYSTEMS DESIGNER Head and neck cancer (HCC) MAGNESIUM Routine 06/17/2024 8:00 AM WATER SYSTEMS DESIGNER Head and neck cancer (HCC) TSH Routine 06/17/2024 8:00 AM WATER SYSTEMS DESIGNER Head and neck cancer (HCC) T4, FREE Routine 06/17/2024 8:00 AM WATER SYSTEMS DESIGNER Head and neck cancer (HCC) XR CHEST 1 VIEW ED Urgent/IP Urgent 06/11/2024 2:31 PM WATER SYSTEMS DESIGNER US GUIDED THORACENTESIS LEFT Schedule Routine, Read Routine (OP Routine) 06/11/2024 2:27 PM WATER SYSTEMS DESIGNER Tonsil cancer (HCC) XR CHEST 1 VIEW IP Routine 06/04/2024 2:44 PM WATER SYSTEMS DESIGNER US GUIDED THORACENTESIS LEFT Schedule Routine, Read Routine (OP Routine) 06/04/2024 2:42 PM WATER SYSTEMS DESIGNER Tonsil cancer (HCC) XR CHEST 1 VIEW IP Routine 05/28/2024 2:41 PM WATER SYSTEMS DESIGNER US GUIDED THORACENTESIS LEFT Schedule Routine, Read Routine (OP Routine) 05/28/2024 2:37 PM WATER SYSTEMS DESIGNER Pleural effusion, not elsewhere classified Tonsil cancer (HCC) PROTEIN / CREATININE RATIO, URINE, RANDOM STAT 05/27/2024 7:59 AM WATER SYSTEMS DESIGNER Head and neck cancer (HCC) EGFR STAT 05/27/2024 7:45 AM WATER SYSTEMS DESIGNER Head and neck cancer (HCC) MANUAL DIFFERENTIAL Routine 05/27/2024 7 :45 AM WATER SYSTEMS DESIGNER Head and neck cancer (HCC) COMPREHENSIVE METABOLIC PANEL STAT 05/27/2024 7:45 AM WATER SYSTEMS DESIGNER Head and neck cancer (HCC) CBC WITH AUTO DIFFERENTIAL Routine 05/27/2024 7:45 AM WATER SYSTEMS DESIGNER Head and neck cancer (HCC) MAGNESIUM Routine 05/27/2024 7:45 AM WATER SYSTEMS DESIGNER Head and neck cancer (HCC) TSH Routine 05/27/2024 7:45 AM WATER SYSTEMS DESIGNER Head and neck cancer (HCC) T4, FREE Routine 05/27/2024 7:45 AM WATER SYSTEMS DESIGNER Head and neck cancer (HCC) XR CHEST 1 VIEW IP Routine 05/17/2024 8:51 AM WATER SYSTEMS DESIGNER US GUIDED THORACENTESIS LEFT Schedule Routine, Read Routine (OP Routine) 05/17/2024 8:50 AM WATER SYSTEMS DESIGNER Tonsil cancer (HCC) from Last 3 Months Results * eGFR (08/05/2024 10:09 AM CDT) eGFR >90 >=60 mL/min/1. 73 m2 Comment: Interpretive Data Reference Interval Normal >/= 90 mL/min/1.73m2 Mildly decreased* 60 - 89 mL/min/1.73m2 Mildly to moderately decreased 45 - 59 mL/min/1.73m2 Moderately to severely decreased 30 - 44 mL/min/1.73m2 Severely decreased 15 - 29 mL/min/1.73m2 Kidney Failure < 15 mL/min/1.73m2 *Relative to young adult level Estimated glomerular filtration rate is determined by the 2020 CKD-EPI equation recommended by the National Kidney Foundation (A Unifying Approach to GFR Estimation: Recommendations of the NKF-ASK Task Force on Reassessing the Inclusion of Race in Diagnosing Kidney Disease, JASN 2020). The CKD-EPI equation should not be used for patients with unstable renal function and has not been validated in children and those over 70. Current interpretive data was last reviewed 2021. Blood 08/05/2024 10:0 9 AM CDT 08/05/2024 10:18 AM CDT us Leola Alvarez NP LAB BLOOD ORDERABLES Final Result [facility] Department of Laboratories [place] [id number] * (ABNORMAL) CBC with auto differential (08/05/2024 10:09 AM CDT) WBC 8.01 3.80 - 9.90 K/cumm Comment:Testing performed by : [facility], [address] [place] [address] Hgb 10.5(L) 13.0 - 17.5 g/dL CERNER BJ Comment:Testing performed by : [facility], [address] [place] [address] Hct 31.2(L) 38.9 - 50.3 % CERNER BJ Comment:Testing performed by : [facility], [address] [place] [address] Plt 256 150 - 400 K/cumm CERNER BJ Comment:Testing performed by : [facility], [address] [place] [address] MPV 6.2(L) 6.8 - 10.4 fL CERNER BJ Comment:Testing performed by : [facility], [address] [place] [address] RBC 3.60(L) 4.30 - 5.80 M/cumm CERNER BJ Comment:Testing performed by : [facility], [address] [place] [address] MCV 86.9 81.3 - 96.4 fL CERNER BJ Comment:Testing performed by : [facility], [address] [place] [address] MCH 29.2 27.1 - 33.3 pg CERNER BJ Comment:Testing performed by : [facility], [address] [place] [address] MCHC 33.6 32.3 - 35.7 g/dL CERNER BJ Comment:Testing performed by : [facility], [address] [place] [address] RDW CV 20.4(H) 11.1 - 14.9 % CERNER BJ Comment:Testing performed by : [facility], [address] [place], [place] [phone] NRBC abs 0.00 0.00 - 0.01 K/cumm CERLINDA BJ Comment:Testing performed by : [facility], [address] [place] [address] Blood 08/05/2024 10:0 9 AM CDT 08/05/2024 10:25 AM CDT Leola Alvarez HARDSCAPE FOREMAN LAB BLOOD ORDERABLES Final Result CINTHIA ZIEGLER [facility] Department of Laboratories [place] [id number] * (ABNORMAL) Manual Differential (08/05/2024 10:09 AM CDT) Cells Counted 200 Comment:Testing performed by : [facility], [address] [place], [place] [phone] Neutrophil abs 5.93 1.50 - 6.50 K/cumm CERNER BJ Comment:Testing performed by : [facility], [address] [place], [place] [phone] Lymphocyte abs 1.04 0.80 - 3.30 K/cumm CERNER BJ Comment:Testing performed by : [facility], [address] [place], [place] [phone] Monocyte abs 0.80 0.20 - 0.80 K/cumm CERNER BJ Comment:Testing performed by : [facility], [address] [place] [address] Eosinophil abs 0.08 0.00 - 0.50 K/cumm CERNER BJ Comment:Testing performed by : [facility], [address] [place] [address] Basophil abs 0.08 0.00 - 0.10 K/cumm CERNER [facility] Comment:Testing performed by : [facility], [address] [place] [address] Neutrophil pct 74.0 % C[facility]ER [facility] Comment: Interpretive Data Percent cell count reference ranges are not reported, since discordance with absolute values may lead to misinterpretation of CBC data. Current Interpretive Data was last revised on 2017. Testing performed by: [facility], [address] [place] [phone] Lymphocyte pct 13.0 % C[facility]ER [facility] Comment: Interpretive Data Percent cell count reference ranges are not reported, since discordance with absolute values may lead to misinterpretation of CBC data. Current Interpretive Data was last revised on 2017. Testing performed by: [facility], [address] [place] [phone] Monocyte pct 10.0 % [facility]ER [facility] Comment: Interpretive Data Percent cell count reference ranges are not reported, since discordance with absolute values may lead to misinterpretation of CBC data. Current Interpretive Data was last revised on 2017. Testing performed by: [facility], [address] [place] [phone] Eosinophil pct 1.0 % [facility]ER [facility] Comment: Interpretive Data Percent cell count reference ranges are not reported, since discordance with absolute values may lead to misinterpretation of CBC data. Current Interpretive Data was last revised on 2017. Testing performed by: [facility], [address] [place] [phone] Basophil pct 1.0 % [facility]ER [facility] Comment: Interpretive Data Percent cell count reference ranges are not reported, since discordance with absolute values may lead to misinterpretation of CBC data. Current Interpretive Data was last revised on 2017. Testing performed by: [facility], [address] [place] [phone] Metamyelocyte pct 1.0(H) 0.0 - 0.0 % [facility]ER [facility] Comment:Testing performed by : [facility], [address] [place] [phone] Myelocyte pct 1.0(H) 0.0 - 0.0 % CERNER [facility] Comment:Testing performed by : [facility], [address] [place] [phone] Variant lymph pct 1.0(H) 0.0 - 0.0 % CINTHIA ZIEGLER Comment:Testing performed by : [facility], [address] [place] [phone] RBC morphology NRBCs present(A) CINTHIA BJ Comment:Testing performed by : [facility], [address] [place], [place] [phone] Polychromasia 1+(A) CINTHIA BJ Comment:Testing performed by : [facility], [address] [place], [place] [phone] Anisocytosis 1+(A) CINTHIA BJ Comment:Testing performed by : [facility], [address] [place], [place] [phone] Poikilocytosis 1+(A) CINTHIA BJ Comment:Testing performed by : [facility], [address] [place], [place] [phone] Microcytes 1+(A) CINTHIA BJ Comment:Testing performed by : [facility], [address] [place], [place] [phone] Macrocytes 1+(A) CINTHIA BJ Comment:Testing performed by : [facility], [address] [place] [phone] Elliptocytes 1+(A) CINTHIA BJ Comment:Testing performed by : [facility], [address] [place], [place] [phone] Platelet estimate Adequate [facility] [facility] Comment:Testing performed by : [facility], [address] [place], [place] [phone] Giant platelets Present(A) CINTHIA ZIEGLER Comment:Testing performed by : [facility], [address] [place] [phone] Blood 08/05/2024 10:0 9 AM CDT 08/05/2024 10:25 AM CDT us Leola Alvarez HARDSCAPE FOREMAN LAB BLOOD ORDERABLES Final Result CINTHIA ZIEGLER [facility] Department [place] [address] * (ABNORMAL) Comprehensive metabolic panel (08/05/2024 10:09 AM CDT) Sodium 135 135 - 145 mmol/L Potassium, pl 4.3 3.3 - 4.9 mmol/L [facility] Chloride 100 97 - 110 mmol/L [facility] CO2 22 22 - 32 mmol/L [facility] Anion gap 13 2 - 15 mmol/L [facility] BUN 17 6 - 25 mg/dL [facility] Creatinine 0.71(L) 0.80 - 1.30 mg/dL [facility] Glucose 116 70 - 199 mg/dL [facility] Comment: Interpretive Data Fasting glucose >/= 126 mg/dl is diagnostic for diabetes. Fasting is defined as no caloric intake for at least 8 hours. Fasting glucose between 100 mg/dl to 125 mg/dl is diagnostic of prediabetes. In a patient with classic symptoms of hyperglycemia or hyperglycemic crisis, a random glucose >/= 200 mg/dl is diagnostic for diabetes. In the absence of unequivocal hyperglycemia, results should be confirmed by repeat testing. The classification and Diagnosis of Diabetes Diabetes Care 2021; 46: S19-S40. Current interpretive data was last revised 2022. Calcium 9.9 8.5 - 10.3 mg/dL [facility] Bilirubin, total 0.3 0.1 - 1.2 mg/dL [facility] Protein, pl 7.0 6.5 - 8.5 g/dL [facility] Albumin 3.5 3.5 - 5.0 g/dL [facility] Alk phos 137(H) 40 - 130 Units/L [facility] ALT 19 7 - 55 Units/L [facility] AST 182(H) 10 - 50 Units/L [facility] Blood 08/05/2024 10:0 9 AM CDT 08/05/2024 10:18 AM CDT us Leola Alvarez NP LAB BLOOD ORDERABLES Final Result [facility] Department [place] [address] * IR Port Placement Chest > 5 Years (08/05/2024 9:15 AM CDT) Anatomical Region Laterality Modality Chest N/A Radio Fluoroscop y 08/05/2024 10:2 7 AM CDT Impressions 08/05/2024 10:27 AM CDT Successful chest wall port placement. PLAN: The catheter is ready for immediate use. Please note that a power injectable port was placed. When treatment is completed, removal can be scheduled by calling [facility] - [phone] [facility] - [phone] Electronically signed by: Mark Serna PA-C Narrative [...] was obtained. Prior to beginning the procedure, [place] Protocol was used to confirm the patient's [...] was obtained. Prior to beginning the procedure, [place] Protocol was used to confirm the patient's [...] completed, removal can be scheduled by calling [facility] - [phone] [facility] - [phone] Electronically signed by: Mark Serna PA-C Leola Alvarez NP IMG IR PROCEDURES Fin al Result * XR Chest 1 View (08/04/2024 11:34 AM CDT) Anatomical Region Laterality Modality Body, Chest N/A Computed Radiogr aphy 08/04/2024 11:4 1 AM CDT Impressions 08/05/2024 8:06 AM CDT Comparison radiograph dated 07/30/2024. Patient is status post right thoracentesis. Redemonstrated large left pleural effusion with associated left lung atelectasis. No pneumothorax. Small right pleural effusion, unchanged. Minimal right basilar atelectasis, unchanged. Stable cardiomediastinal silhouette with obscuration of the left heart border. Dictated by: Denisa Briscoe MD The radiology attending physician has personally reviewed this study, and had reviewed and/or edited this written report and agrees with it. Electronically signed by: Naseem Alamo M.D. Narrative 08/05/2024 8:06 AM CDT EXAMINATION: 1 view chest radiograph Procedure Note Naseem Alamo MD - 08/05/2024 EXAMINATION: 1 view chest radiograph IMPRESSION: Comparison radiograph dated 07/30/2024. Patient is status post right thoracentesis. Redemonstrated large left pleural effusion with associated left lung atelectasis. No pneumothorax. Small right pleural effusion, unchanged. Minimal right basilar atelectasis, unchanged. Stable cardiomediastinal silhouette with obscuration of the left heart border. Dictated by: Denisa Briscoe MD The radiology attending physician has personally reviewed this study, and had reviewed and/or edited this written report and agrees with it. Electronically signed by: Naseem Alamo M.D. us Sherice ESTES IMG XR PROCEDURES Final Re sult * US Guided Thoracentesis (08/04/2024 11:24 AM CDT) Anatomical Region Laterality Modality Chest N/A Ultrasound 08/04/2024 11:4 8 AM CDT Impressions 08/04/2024 11:48 AM CDT 1. Successful ultrasound-guided therapeutic thoracentesis. Electronically signed by: Sherice Aguilera PA-C Narrative 08/04/2024 11:48 AM CDT EXAMINATION: THERAPEUTIC THORACENTESIS HISTORY: 59-year-old male with left pleural effusion in the setting of squamous cell carcinoma of tonsil COMPARISON: Chest x-ray and same day sonogram FINDINGS: Limited views of the posterior left chest show a moderate amount of pleural fluid. The left chest was marked appropriately with ultrasound guidance. TECHNIQUE: The procedure and its benefits and risks were explained to the patient. The potential risks included but were not limited to pneumothorax, bleeding, infection, and injury to adjacent organs. A site was localized for thoracentesis. The patient's overlying skin was prepped and draped in the usual sterile fashion. Local anesthesia was achieved via subcutaneous and deep administration with 9 mL of Lidocaine 1%. 5-Filipino One Step needle was advanced into the pleural cavity. Appropriate needle location was documented with continuous sonographic guidance. 1200 mL of serosanguineous fluid were obtained. The patient's skin was cleaned and dressed. The patient tolerated the procedure well and was discharged in stable condition. The ultrasound obtained immediately following the procedure and the post procedure chest radiograph showed no pneumothorax. Sherice Aguilera PA-C, the Physician Patrol Police Lieutenant, was present from the beginning to the end of the procedure. Sherice ESTES performed the thoracentesis. Dr. Bridgette Pena (residential carpenter) was present and participated in the procedure. 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 The left chest was marked appropriately with ultrasound guidance. TECHNIQUE: The procedure and its benefits and risks were explained to the patient. The potential risks included but were not limited to pneumothorax, bleeding, infection, and injury to adjacent organs. A site was localized for thoracentesis. The patient's overlying skin was prepped and draped in the usual sterile fashion. Local anesthesia was achieved via subcutaneous and deep administration with 9 mL of Lidocaine 1%. 5-Filipino One Step needle was advanced into the pleural cavity. Appropriate needle location was documented with continuous sonographic guidance. 1200 mL of serosanguineous fluid were obtained. The patient's skin was cleaned and dressed. The patient tolerated the procedure well and was discharged in stable condition. The ultrasound obtained immediately following the procedure and the post procedure chest radiograph showed no pneumothorax. Sherice Aguilera PA-C, the Physician [employer] Police Lieutenant, was present from the beginning to the end of the procedure. Sherice ESTES performed the thoracentesis. Dr. Bridgette Pena (residential carpenter) was present and participated in the procedure. IMPRESSION: 1. Successful ultrasound-guided therapeutic thoracentesis. Electronically signed by: Sherice Aguilera PA-C us Abdirashid Garcia MD [facility]ED[place] Final Res ult * XR Chest 1 View (07/30/2024 3:14 PM CDT) Anatomical Region Laterality Modality Body, Chest N/A Computed Radiogr aphy 07/30/2024 4:27 PM CDT Impressions 07/30/2024 4:48 PM CDT The current study is compared with the prior radiograph dated 07/23/2024, CT 07/27/2024 Stable large left pleural effusion with associated moderate atelectasis of left lower lung. Stable small right pleural effusion. Stable mild right basilar atelectasis. Stable chronic right 4th posterior rib fracture. There is no pneumothorax. The heart and mediastinal contours are stable, with complete obscuration of the left cardiac silhouette border. Dictated by: Aden Orozco M.D. The radiology attending physician has personally reviewed this study, and had reviewed and/or edited this written report and agrees with it. Electronically signed by: Mac Robles M.D. Narrative 07/30/2024 4:48 PM CDT EXAMINATION: 1 view chest radiograph Procedure Note Mac Robles MD - 07/30/2024 EXAMINATION: 1 view chest radiograph IMPRESSION: The current study is compared with the prior radiograph dated 07/23/2024, CT 07/27/2024 Stable large left pleural effusion with associated moderate atelectasis of left lower lung. Stable small right pleural effusion. Stable mild right basilar atelectasis. Stable chronic right 4th posterior rib fracture. There is no pneumothorax. The heart and mediastinal contours are stable, with complete obscuration of the left cardiac silhouette border. Dictated by: Aden Orozco M.D. The radiology attending physician has personally reviewed this study, and had reviewed and/or edited this written report and agrees with it. Electronically signed by: Mac Robles M.D. us Pastor Fragoso MD IMG XR PROCEDURES Final Res ult * US Guided Thoracentesis (07/30/2024 3:06 PM CDT) Anatomical Region Laterality Modality Chest N/A Ultrasound 07/30/2024 3:17 PM CDT Impressions 07/30/2024 4:36 PM CDT 1. Successful ultrasound-guided therapeutic thoracentesis. The radiology attending physician has personally reviewed this study, and had reviewed and/or edited this written report and agrees with it. Electronically signed by: Antonio Deluca M.D. Narrative 07/30/2024 4:36 PM CDT EXAMINATION: THERAPEUTIC THORACENTESIS HISTORY: 59-year-old male with history of tonsillar squamous cell carcinoma and recurrent left-sided pleural effusions. Therapeutic thoracentesis for left-sided pleural effusion. COMPARISON: 07/27/2024 CT FINDINGS: Limited views of the posterior left chest show a large amount of pleural fluid. The left chest was marked appropriately with ultrasound guidance. TECHNIQUE: The procedure and its benefits and risks were explained to the patient. The potential risks included but were not limited to pneumothorax, bleeding, infection, and injury to adjacent organs. A site was localized for thoracentesis. The patient's overlying skin was prepped and draped in the usual sterile fashion. Local anesthesia was achieved via subcutaneous and deep administration with 8 mL of Lidocaine 1%. 5-Filipino One Step needle was advanced into the pleural cavity. Appropriate needle location was documented with continuous sonographic guidance. 1350 mL of red, cloudy fluid were obtained. The patient's skin was cleaned and dressed. The patient tolerated the procedure well and was discharged in stable condition. The ultrasound obtained immediately following the procedure and the post procedure chest radiograph showed no pneumothorax. Dr. Deluca, the attending radiologist, was present from the beginning to the end of the procedure. Dr. Fragoso performed the thoracentesis. Procedure Note Antonio Deluca MD - 07/30/2024 EXAMINATION: THERAPEUTIC THORACENTESIS HISTORY: 59-year-old male with history of tonsillar squamous cell carcinoma and recurrent left-sided pleural effusions. Therapeutic thoracentesis for left-sided pleural effusion. COMPARISON: 07/27/2024 CT FINDINGS: Limited views of the posterior left chest show a large amount of pleural fluid. The left chest was marked appropriately with ultrasound guidance. TECHNIQUE: The procedure and its benefits and risks were explained to the patient. The potential risks included but were not limited to pneumothorax, bleeding, infection, and injury to adjacent organs. A site was localized for thoracentesis. The patient's overlying skin was prepped and draped in the usual sterile fashion. Local anesthesia was achieved via subcutaneous and deep administration with 8 mL of Lidocaine 1%. 5-Filipino One Step needle was advanced into the pleural cavity. Appropriate needle location was documented with continuous sonographic guidance. 1350 mL of red, cloudy fluid were obtained. The patient's skin was cleaned and dressed. The patient tolerated the procedure well and was discharged in stable condition. The ultrasound obtained immediately following the procedure and the post procedure chest radiograph showed no pneumothorax. Dr. Deluca, the attending radiologist, was present from the beginning to the end of the procedure. Dr. Fragoso performed the thoracentesis. IMPRESSION: 1. Successful ultrasound-guided therapeutic thoracentesis. The radiology attending physician has personally reviewed this study, and had reviewed and/or edited this written report and agrees with it. Electronically signed by: Antonio Deluca M.D. Abdirashid Garcia MD [facility]EDURES Final Res ult * Protein / creatinine ratio, urine, random (07/29/2024 9:34 AM CDT) Pathologist [facility] Protein, ur, quant 36.4 mg/dL Comment: Interpretive Data No reference range established. Current interpretive data was last revised 2018. Creatinine Ur 272.1 mg/dL [facility] Comment: Interpretive Data No reference range established. Current interpretive data was last revised 2018. Protein/creatinin e ratio 133.8 0.0 - 180.0 mg/g CR [facility] Urine 07/29/2024 9:34 AM CDT 07/29/2024 9:52 AM CDT us Leola Alvarez NP LAB URINE ORDERABLES Final Result [facility] Department [place] [address] * eGFR (07/29/2024 9:04 AM CDT) [facility] eGFR >90 >=60 mL/min/1. 73 m2 Comment: Interpretive Data Reference Interval Normal >/= 90 mL/min/1.73m2 Mildly decreased* 60 - 89 mL/min/1.73m2 Mildly to moderately decreased 45 - 59 mL/min/1.73m2 Moderately to severely decreased 30 - 44 mL/min/1.73m2 Severely decreased 15 - 29 mL/min/1.73m2 Kidney Failure < 15 mL/min/1.73m2 *Relative to young adult level Estimated glomerular filtration rate is determined by the 2020 CKD-EPI equation recommended by the National Kidney Foundation (A Unifying Approach to GFR Estimation: Recommendations of the NKF-ASK Task Force on Reassessing the Inclusion of Race in Diagnosing Kidney Disease, JASN 2020). The CKD-EPI equation should not be used for patients with unstable renal function and has not been validated in children and those over 70. Current interpretive data was last reviewed 2021. Blood 07/29/2024 9:04 AM CDT 07/29/2024 9:09 AM CDT us Leola Alvarez HARDSCAPE FOREMAN LAB BLOOD ORDERABLES Final Result CINTHIA ZIEGLER [facility] Department [place] [address] * (ABNORMAL) CBC with auto differential (07/29/2024 9:04 AM CDT) [facility] WBC 9.02 3.80 - 9.90 K/cumm Comment:Testing performed by : [facility], [address] [place] [phone] Hgb 10.8(L) 13.0 - 17.5 g/dL CINTHIA LYON Comment:Testing performed by : [facility], [address] [place] [phone] Hct 32.8(L) 38.9 - 50.3 % CINTHIA LYON Comment:Testing performed by : [facility], [address] [place] [phone] Plt 275 150 - 400 K/cumm CINTHIA ZIEGLERH Comment:Testing performed by : [facility], [address] [place] [address] MPV 5.9(L) 6.8 - 10.4 fL CINTHIA ZIEGLER Comment:Testing performed by : [facility], [address] [place] [address] RBC 3.80(L) 4.30 - 5.80 M/cumm [facility] Comment:Testing performed by : [facility], [address] [place] [address] MCV 86.5 81.3 - 96.[address] [facility] Comment:Testing performed by : [facility], [address] [place], [place] [phone] MCH 28.5 27.1 - 33.[address] [facility] [facility] Comment:Testing performed by : [facility], [address] [place] [address] MCHC 33.0 32.3 - 35.7 g/dL [facility] Comment:Testing performed by : [facility], [address] [place] [address] RDW CV 19.7(H) 11.1 - 14.9 % [facility] Comment:Testing performed by : [facility], [address] [place] [address] NRBC abs 0.10(H) 0.00 - 0.01 K/cumm [facility] Comment:Testing performed by : [facility], [address] [place] [address] Blood 07/29/2024 9:04 AM CDT 07/29/2024 9:07 AM CDT Leola Alvarez NP LAB BLOOD ORDERABLES Edited Result - Final [facility] Department [place] [address] * (ABNORMAL) Manual Differential (07/29/2024 9:04 AM CDT) Cells Counted 198 Comment:Testing performed by : [facility], [address] [place] [address] Neutrophil abs 6.77(H) 1.50 - 6.50 K/cumm [facility] Comment:Testing performed by : [facility], [address] [place], [place] [id number] Lymphocyte abs 0.63(L) 0.80 - 3.30 K/cumm [facility] Comment:Testing performed by : [facility], [address] [place] [address] Monocyte abs 1.17(H) 0.20 - 0.80 K/cumm [facility] Comment:Testing performed by : [facility], [address] [place], [place] [id number] Eosinophil abs 0.09 0.00 - 0.50 K/cumm [facility] Comment:Testing performed by : [facility], [address] [place] [address] Basophil abs 0.09 0.00 - 0.10 K/cumm [facility] Comment:Testing performed by : [facility], [address] [place] [address] Neutrophil pct 75.0 % [facility] Comment: Interpretive Data Percent cell count reference ranges are not reported, since discordance with absolute values may lead to misinterpretation of CBC data. Current Interpretive Data was last revised on 2017. Testing performed by: [facility], [address] [place] [address] Lymphocyte pct 7.0 % [facility] Comment: Interpretive Data Percent cell count reference ranges are not reported, since discordance with absolute values may lead to misinterpretation of CBC data. Current Interpretive Data was last revised on 2017. Testing performed by: [facility], [address] [place] [address] Monocyte pct 13.0 % [facility] Comment: Interpretive Data Percent cell count reference ranges are not reported, since discordance with absolute values may lead to misinterpretation of CBC data. Current Interpretive Data was last revised on 2017. Testing performed by: [facility], [address] [place] [phone] Eosinophil pct 1.0 % [facility] Comment: Interpretive Data Percent cell count reference ranges are not reported, since discordance with absolute values may lead to misinterpretation of CBC data. Current Interpretive Data was last revised on 2017. Testing performed by: [facility], [address] [place], [place] [phone] Basophil pct 1.0 % [facility] Comment: Interpretive Data Percent cell count reference ranges are not reported, since discordance with absolute values may lead to misinterpretation of CBC data. Current Interpretive Data was last revised on 2017. Testing performed by: [facility], [address] [place], [place] [phone] Metamyelocyte pct 3.0(H) 0.0 - 0.0 % [facility] Comment:Testing performed by : [facility], [address] [place], [place] [phone] Variant lymph pct 1.0(H) 0.0 - 0.0 % [facility] Comment:Testing performed by : [facility], [address] [place], [place] [phone] RBC morphology NRBCs present(A) [facility] Comment:Testing performed by : [facility], [address] [place], [place] [phone] Polychromasia 1+(A) [facility] Comment:Testing performed by : [facility], [address] [place], [place] [phone] Anisocytosis 1+(A) [facility] Comment:Testing performed by : [facility], [address] [place], [place] [phone] Poikilocytosis 1+(A) [facility] Comment:Testing performed by : [facility], [address] [place], [place] [phone] Microcytes 2+(A) [facility] Comment:Testing performed by : [facility], [address] [place] [phone] Elliptocytes 1+(A) [facility] Comment:Testing performed by : [facility], [address] [place] [address] Platelet estimate Adequate [facility] Comment:Testing performed by : [facility], [facility] [place] [address] Blood 07/29/2024 9:04 AM CDT 07/29/2024 9:07 AM CDT Leola Alvarez [employer] LAB BLOOD ORDERABLES Final Result [facility] Department [place] [address] * (ABNORMAL) TSH (07/29/2024 9:04 AM CDT) Thyroid Stimulating Hormone 7.49(H) 0.30 - 4.20 mcIUnit/mL Blood 07/29/2024 9:04 AM CDT 07/29/2024 9:09 AM CDT Leola Alvarez [employer] LAB BLOOD ORDERABLES Final Result [facility] Department [place] [address] * T4, free (07/29/2024 9:04 AM CDT) Free T4 1.05 0.90 - 1.70 ng/dL Blood 07/29/2024 9:04 AM CDT 07/29/2024 9:09 AM CDT Leola Alvarez [employer] LAB BLOOD ORDERABLES Final [facility] [place] [address] * Magnesium (07/29/2024 9:04 AM CDT) Pathologist [facility] Magnesium 2.2 1.4 - 2.5 mg/dL Blood 07/29/2024 9:04 AM CDT 07/29/2024 9:09 AM CDT Leola Alvarez NP LAB BLOOD ORDERABLES Final Result [facility] Department [place] [address] * (ABNORMAL) Comprehensive metabolic panel (07/29/2024 9:04 AM CDT) Pathologist [facility] Sodium 139 135 - 145 mmol/L Potassium, pl 4.5 3.3 - 4.9 mmol/L [facility] Chloride 101 97 - 110 mmol/L [facility] CO2 25 22 - 32 mmol/L [facility] Anion gap 13 2 - 15 mmol/L [facility] BUN 18 6 - 25 mg/dL [facility] Creatinine 0.78(L) 0.80 - 1.30 mg/dL [facility] Glucose 102 70 - 199 mg/dL [facility] Comment: Interpretive Data Fasting glucose >/= 126 mg/dl is diagnostic for diabetes. Fasting is defined as no caloric intake for at least 8 hours. Fasting glucose between 100 mg/dl to 125 mg/dl is diagnostic of prediabetes. In a patient with classic symptoms of hyperglycemia or hyperglycemic crisis, a random glucose >/= 200 mg/dl is diagnostic for diabetes. In the absence of unequivocal hyperglycemia, results should be confirmed by repeat testing. The classification and Diagnosis of Diabetes Diabetes Care 2021; 46: S19-S40. Current interpretive data was last revised 2022. Calcium 10.2 8.5 - 10.3 mg/dL [facility] Bilirubin, total 0.2 0.1 - 1.2 mg/dL [facility] Protein, pl 7.6 6.5 - 8.5 g/dL [facility] Albumin 3.8 3.5 - 5.0 g/dL [facility] Alk phos 143(H) 40 - 130 Units/L [facility] ALT 18 7 - 55 Units/L [facility] AST 188(H) 10 - 50 Units/L [facility] Blood 07/29/2024 9:04 AM CDT 07/29/2024 9:09 AM CDT us Leola Alvarez NP LAB BLOOD ORDERABLES Final Result [facility] Department [place] [address] * CT Chest Abdomen Pelvis W Contrast (07/27/2024 8:09 AM CDT) Anatomical Region Laterality Modality Body N/A Computed Tomogra phy 07/27/2024 8:41 AM CDT Impressions 07/27/2024 8:41 AM CDT 1. Suspected progressive disease as evidenced by new left pleural and pericardial thickening and new hepatic lesions. Grossly stable extensive lytic osseous metastatic disease. A large lytic lesion in the sacrum, not previously imaged, results in stenosis multiple left-sided neural foramina. 2. Large malignant left pleural effusion with complete left lower lobe collapse and partial left upper lobe collapse. New small right pleural effusion. Electronically signed by: Devante Alba M.D. Narrative 07/27/2024 8:41 AM CDT EXAMINATION: Computed tomography of the chest, abdomen and pelvis with intravenous contrast HISTORY: Head and neck cancer TECHNIQUE: Transaxial computed tomographic images of the chest, abdomen and pelvis were obtained with intravenous contrast according to the standard protocol after the uneventful administration of 120 mL Opti-Ray 350 intravenous contrast. COMPARISON: CT dated 04/30/2024. FINDINGS: Chest: Large malignant left pleural effusion with pleural thickening is again seen. There is worsened pleural nodularity along the superior mediastinal aspect, for instance nodular tissue measuring up to 1.3 cm in thickness (table position -142.9), is new from the prior exam. No pericardial effusion, but there is soft tissue thickening along the left aspect of the pericardium seen on table position -20.9. Left axillary lymph node measuring 1.1 cm in short axis, not significantly changed from the most recent exam with otherwise no enlarging thoracic lymph nodes seen. Complete left lower lobe and partial left upper lobe collapse is again noted, not significant changed. New small right pleural effusion with associated atelectasis. Calcified granuloma in the right middle lobe. No suspicious pulmonary nodule or mass is seen. Abdomen/Pelvis: New 5 mm hypoattenuating lesion in the left lateral section and 8 mm lesion in the segment 8. Gallbladder is normal. Spleen and pancreas are normal. Duodenal diverticulum. Retroperitoneal nodularity and lymphadenopathy is again noted, not significantly changed. The kidneys enhance symmetrically. No suspicious focal renal lesion is seen. Small nonobstructing right renal stone. Urinary bladder is distended but without wall thickening. Stomach small bowel and colon are normal in caliber without wall thickening. No free fluid or free intraperitoneal air. Extensive lytic osseous metastases throughout the imaged bones is not significantly changed. A large lytic lesion in the sacrum which results in stenosis of multiple left-sided neural foramina including S1 and S2, this has not been previously imaged. Procedure Note Devante Alba MD - 07/27/2024 EXAMINATION: Computed tomography of the chest, abdomen and pelvis with intravenous contrast HISTORY: Head and neck cancer TECHNIQUE: Transaxial computed tomographic images of the chest, abdomen and pelvis were obtained with intravenous contrast according to the standard protocol after the uneventful administration of 120 mL Opti-Ray 350 intravenous contrast. COMPARISON: CT dated 04/30/2024. FINDINGS: Chest: Large malignant left pleural effusion with pleural thickening is again seen. There is worsened pleural nodularity along the superior mediastinal aspect, for instance nodular tissue measuring up to 1.3 cm in thickness (table position -142.9), is new from the prior exam. No pericardial effusion, but there is soft tissue thickening along the left aspect of the pericardium seen on table position -20.9. Left axillary lymph node measuring 1.1 cm in short axis, not significantly changed from the most recent exam with otherwise no enlarging thoracic lymph nodes seen. Complete left lower lobe and partial left upper lobe collapse is again noted, not significant changed. New small right pleural effusion with associated atelectasis. Calcified granuloma in the right middle lobe. No suspicious pulmonary nodule or mass is seen. Abdomen/Pelvis: New 5 mm hypoattenuating lesion in the left lateral section and 8 mm lesion in the segment 8. Gallbladder is normal. Spleen and pancreas are normal. Duodenal diverticulum. Retroperitoneal nodularity and lymphadenopathy is again noted, not significantly changed. The kidneys enhance symmetrically. No suspicious focal renal lesion is seen. Small nonobstructing right renal stone. Urinary bladder is distended but without wall thickening. Stomach small bowel and colon are normal in caliber without wall thickening. No free fluid or free intraperitoneal air. Extensive lytic osseous metastases throughout the imaged bones is not significantly changed. A large lytic lesion in the sacrum which results in stenosis of multiple left-sided neural foramina including S1 and S2, this has not been previously imaged. IMPRESSION: 1. Suspected progressive disease as evidenced by new left pleural and pericardial thickening and new hepatic lesions. Grossly stable extensive lytic osseous metastatic disease. A large lytic lesion in the sacrum, not previously imaged, results in stenosis multiple left-sided neural foramina. 2. Large malignant left pleural effusion with complete left lower lobe collapse and partial left upper lobe collapse. New small right pleural effusion. Electronically signed by: Devante Alba M.D. Abdirashid Garcia MD IMG CT PROCEDURES Final Res ult * CT Neck Soft Tissue W Contrast (07/27/2024 8:09 AM CDT) Anatomical Region Laterality Modality Head and Neck N/A Computed Tomogra phy 07/27/2024 10:1 3 AM CDT Impressions 07/27/2024 10:42 AM CDT 1. Similar size heterogenous enhancing mass centered in the left sphenoid bone with associated osseous erosion and extension into the left frontal lobe, left middle cranial fossa, left landfill grader space. Similar mass effect on the adjacent left frontal lobe cerebral sulci with adjacent edema, not significantly changed from prior. Consider a contrast-enhanced MR brain for extent of intracranial invasion, as clinically indicated. 2. Mildly increasing size/extension into the left orbit superolateral extraconal space and left landfill grader space. Increasing left strap muscle invasion, compatible with progression of disease. 3. No substantial change in left intraparotid enhancing lesion and left submandibular lymph nodes. 4. Stable multifocal lytic osseous metastases involving the visualized osseous structures throughout the head and neck, as outlined above. Multilevel lytic lesion in the cervicothoracic spine with posterior vertebral body cortical breakthrough and epidural extension worst at T6 level. Consider MRI spine to exclude cord compression, as clinically indicated. 5. Partially visualized large loculated left pleural effusion with underlying atelectasis. Small right pleural effusion and pleural thickening are new as compared to prior study. Please refer to concurrent CT chest for chest findings. 6. Mild increase size of an extraosseous soft tissue component arising from the right posterior 4th rib with extension into the right pleura. Please refer to concurrent CT chest for chest findings. Dictated by: Maddy Lundberg MD The radiology attending physician has personally reviewed this study, and had reviewed and/or edited this written report and agrees with it. Electronically signed by: Ladan Pike M.D. Narrative 07/27/2024 10:42 AM CDT EXAMINATION: 1. CT head with contrast 2. 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 Assess treatment response. TECHNIQUE: CT of the head was performed with images acquired from skull base to vertex with intravenous contrast. CT of the neck was performed according to the standard protocol with intravenous contrast. Contrast information: 120 mL Optiray-350 IV COMPARISON: CT head and soft tissue neck dated April 2024. CT chest dated 07/27/2024. FINDINGS: HEAD: Similar size of the heterogenous enhancing mass centered in the left sphenoid bone with associated osseous erosion and extension into the left frontal lobe, left middle cranial fossa and left landfill grader space. There is minimal increasing size of the extension into the left orbit superior and lateral extraconal space with involvement of the left lateral rectus muscle. There is also minimal increasing size of the extension into the left landfill grader space. There is again overlying left temporal fossa scalp edema. There is unchanged mass effect on the adjacent cerebral sulci in the left frontal lobe and vasogenic edema/hypodensity in the left frontal lobe not significantly changed from prior examination. Unchanged mild mass effect and effacement of the left lateral ventricle. Stable 5 mm rightward midline shift Multiple scattered lytic osseous lesions, not significantly changed from prior examination. There is no acute intracranial hemorrhage. Lytic lesion in the left petrous apex with cortical breakthrough appears similar compared to prior exam. Additional calvarial lesions are noted on image 136 of sequence 5 and are stable. Normal mastoid. Normal paranasal sinuses. NECK: No substantial change in left intraparotid enhancing soft tissue deposits measuring to 3.2 x 2 cm seen on image 37 of sequence 4. No substantial change in prominent left submandibular lymph nodes seen on image 66 of sequence 4. Worsening left strap muscle invasion as seen on image 68 of sequence 4. Vessels of the neck demonstrate normal course and with atherosclerosis without significant stenosis. The visualized airway is patent. The thyroid gland is unremarkable. Multifocal lytic osseous metastases involving the visualized osseous structures, including the spine, ribs, scapulae, sternum, and calvarium. There are multilevel lytic lesions in the cervicothoracic spine with posterior vertebral body cortical breakthrough and posterior epidural extension worst at T6 level. Partially visualized large left loculated pleural effusion with adjacent compressive atelectasis and groundglass opacities in the left lung. There is a small right pleural effusion. There are calcified mediastinal lymph nodes. Mild increasing size of an extraosseous soft tissue underlying the right posterior 4th rib lytic lesion with extension into the right posterior lung/pleura. Procedure Note Ladan Ye MD - 07/27/2024 EXAMINATION: 1. CT head with contrast 2. 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 Assess treatment response. TECHNIQUE: CT of the head was performed with images acquired from skull base to vertex with intravenous contrast. CT of the neck was performed according to the standard protocol with intravenous contrast. Contrast information: 120 mL Optiray-350 IV COMPARISON: CT head and soft tissue neck dated April 2024. CT chest dated 07/27/2024. FINDINGS: HEAD: Similar size of the heterogenous enhancing mass centered in the left sphenoid bone with associated osseous erosion and extension into the left frontal lobe, left middle cranial fossa and left landfill grader space. There is minimal increasing size of the extension into the left orbit superior and lateral extraconal space with involvement of the left lateral rectus muscle. There is also minimal increasing size of the extension into the left landfill grader space. There is again overlying left temporal fossa scalp edema. There is unchanged mass effect on the adjacent cerebral sulci in the left frontal lobe and vasogenic edema/hypodensity in the left frontal lobe not significantly changed from prior examination. Unchanged mild mass effect and effacement of the left lateral ventricle. Stable 5 mm rightward midline shift Multiple scattered lytic osseous lesions, not significantly changed from prior examination. There is no acute intracranial hemorrhage. Lytic lesion in the left petrous apex with cortical breakthrough appears similar compared to prior exam. Additional calvarial lesions are noted on image 136 of sequence 5 and are stable. Normal mastoid. Normal paranasal sinuses. NECK: No substantial change in left intraparotid enhancing soft tissue deposits measuring to 3.2 x 2 cm seen on image 37 of sequence 4. No substantial change in prominent left submandibular lymph nodes seen on image 66 of sequence 4. Worsening left strap muscle invasion as seen on image 68 of sequence 4. Vessels of the neck demonstrate normal course and with atherosclerosis without significant stenosis. The visualized airway is patent. The thyroid gland is unremarkable. Multifocal lytic osseous metastases involving the visualized osseous structures, including the spine, ribs, scapulae, sternum, and calvarium. There are multilevel lytic lesions in the cervicothoracic spine with posterior vertebral body cortical breakthrough and posterior epidural extension worst at T6 level. Partially visualized large left loculated pleural effusion with adjacent compressive atelectasis and groundglass opacities in the left lung. There is a small right pleural effusion. There are calcified mediastinal lymph nodes. Mild increasing size of an extraosseous soft tissue underlying the right posterior 4th rib lytic lesion with extension into the right posterior lung/pleura. IMPRESSION: 1. Similar size heterogenous enhancing mass centered in the left sphenoid bone with associated osseous erosion and extension into the left frontal lobe, left middle cranial fossa, left landfill grader space. Similar mass effect on the adjacent left frontal lobe cerebral sulci with adjacent edema, not significantly changed from prior. Consider a contrast-enhanced MR brain for extent of intracranial invasion, as clinically indicated. 2. Mildly increasing size/extension into the left orbit superolateral extraconal space and left landfill grader space. Increasing left strap muscle invasion, compatible with progression of disease. 3. No substantial change in left intraparotid enhancing lesion and left submandibular lymph nodes. 4. Stable multifocal lytic osseous metastases involving the visualized osseous structures throughout the head and neck, as outlined above. Multilevel lytic lesion in the cervicothoracic spine with posterior vertebral body cortical breakthrough and epidural extension worst at T6 level. Consider MRI spine to exclude cord compression, as clinically indicated. 5. Partially visualized large loculated left pleural effusion with underlying atelectasis. Small right pleural effusion and pleural thickening are new as compared to prior study. Please refer to concurrent CT chest for chest findings. 6. Mild increase size of an extraosseous soft tissue component arising from the right posterior 4th rib with extension into the right pleura. Please refer to concurrent CT chest for chest findings. Dictated by: Maddy Lundberg MD The radiology attending physician has personally reviewed this study, and had reviewed and/or edited this written report and agrees with it. Electronically signed by: Ladan Pike M.D. Abdirashid Garcia MD IMG CT PROCEDURES Final Res ult * CT Head W Contrast (07/27/2024 8:09 AM CDT) Anatomical Region Laterality Modality Head and Neck N/A Computed Tomogra phy 07/27/2024 10:1 3 AM CDT Impressions 07/27/2024 10:42 AM CDT 1. Similar size heterogenous enhancing mass centered in the left sphenoid bone with associated osseous erosion and extension into the left frontal lobe, left middle cranial fossa, left landfill grader space. Similar mass effect on the adjacent left frontal lobe cerebral sulci with adjacent edema, not significantly changed from prior. Consider a contrast-enhanced MR brain for extent of intracranial invasion, as clinically indicated. 2. Mildly increasing size/extension into the left orbit superolateral extraconal space and left landfill grader space. Increasing left strap muscle invasion, compatible with progression of disease. 3. No substantial change in left intraparotid enhancing lesion and left submandibular lymph nodes. 4. Stable multifocal lytic osseous metastases involving the visualized osseous structures throughout the head and neck, as outlined above. Multilevel lytic lesion in the cervicothoracic spine with posterior vertebral body cortical breakthrough and epidural extension worst at T6 level. Consider MRI spine to exclude cord compression, as clinically indicated. 5. Partially visualized large loculated left pleural effusion with underlying atelectasis. Small right pleural effusion and pleural thickening are new as compared to prior study. Please refer to concurrent CT chest for chest findings. 6. Mild increase size of an extraosseous soft tissue component arising from the right posterior 4th rib with extension into the right pleura. Please refer to concurrent CT chest for chest findings. Dictated by: Maddy Lundberg MD The radiology attending physician has personally reviewed this study, and had reviewed and/or edited this written report and agrees with it. Electronically signed by: Ladan Pike M.D. Narrative 07/27/2024 10:42 AM CDT EXAMINATION: 1. CT head with contrast 2. 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 Assess treatment response. TECHNIQUE: CT of the head was performed with images acquired from skull base to vertex with intravenous contrast. CT of the neck was performed according to the standard protocol with intravenous contrast. Contrast information: 120 mL Optiray-350 IV COMPARISON: CT head and soft tissue neck dated April 2024. CT chest dated 07/27/2024. FINDINGS: HEAD: Similar size of the heterogenous enhancing mass centered in the left sphenoid bone with associated osseous erosion and extension into the left frontal lobe, left middle cranial fossa and left landfill grader space. There is minimal increasing size of the extension into the left orbit superior and lateral extraconal space with involvement of the left lateral rectus muscle. There is also minimal increasing size of the extension into the left landfill grader space. There is again overlying left temporal fossa scalp edema. There is unchanged mass effect on the adjacent cerebral sulci in the left frontal lobe and vasogenic edema/hypodensity in the left frontal lobe not significantly changed from prior examination. Unchanged mild mass effect and effacement of the left lateral ventricle. Stable 5 mm rightward midline shift Multiple scattered lytic osseous lesions, not significantly changed from prior examination. There is no acute intracranial hemorrhage. Lytic lesion in the left petrous apex with cortical breakthrough appears similar compared to prior exam. Additional calvarial lesions are noted on image 136 of sequence 5 and are stable. Normal mastoid. Normal paranasal sinuses. NECK: No substantial change in left intraparotid enhancing soft tissue deposits measuring to 3.2 x 2 cm seen on image 37 of sequence 4. No substantial change in prominent left submandibular lymph nodes seen on image 66 of sequence 4. Worsening left strap muscle invasion as seen on image 68 of sequence 4. Vessels of the neck demonstrate normal course and with atherosclerosis without significant stenosis. The visualized airway is patent. The thyroid gland is unremarkable. Multifocal lytic osseous metastases involving the visualized osseous structures, including the spine, ribs, scapulae, sternum, and calvarium. There are multilevel lytic lesions in the cervicothoracic spine with posterior vertebral body cortical breakthrough and posterior epidural extension worst at T6 level. Partially visualized large left loculated pleural effusion with adjacent compressive atelectasis and groundglass opacities in the left lung. There is a small right pleural effusion. There are calcified mediastinal lymph nodes. Mild increasing size of an extraosseous soft tissue underlying the right posterior 4th rib lytic lesion with extension into the right posterior lung/pleura. Procedure Note Ladan Ye MD - 07/27/2024 EXAMINATION: 1. CT head with contrast 2. 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 Assess treatment response. TECHNIQUE: CT of the head was performed with images acquired from skull base to vertex with intravenous contrast. CT of the neck was performed according to the standard protocol with intravenous contrast. Contrast information: 120 mL Optiray-350 IV COMPARISON: CT head and soft tissue neck dated April 2024. CT chest dated 07/27/2024. FINDINGS: HEAD: Similar size of the heterogenous enhancing mass centered in the left sphenoid bone with associated osseous erosion and extension into the left frontal lobe, left middle cranial fossa and left landfill grader space. There is minimal increasing size of the extension into the left orbit superior and lateral extraconal space with involvement of the left lateral rectus muscle. There is also minimal increasing size of the extension into the left landfill grader space. There is again overlying left temporal fossa scalp edema. There is unchanged mass effect on the adjacent cerebral sulci in the left frontal lobe and vasogenic edema/hypodensity in the left frontal lobe not significantly changed from prior examination. Unchanged mild mass effect and effacement of the left lateral ventricle. Stable 5 mm rightward midline shift Multiple scattered lytic osseous lesions, not significantly changed from prior examination. There is no acute intracranial hemorrhage. Lytic lesion in the left petrous apex with cortical breakthrough appears similar compared to prior exam. Additional calvarial lesions are noted on image 136 of sequence 5 and are stable. Normal mastoid. Normal paranasal sinuses. NECK: No substantial change in left intraparotid enhancing soft tissue deposits measuring to 3.2 x 2 cm seen on image 37 of sequence 4. No substantial change in prominent left submandibular lymph nodes seen on image 66 of sequence 4. Worsening left strap muscle invasion as seen on image 68 of sequence 4. Vessels of the neck demonstrate normal course and with atherosclerosis without significant stenosis. The visualized airway is patent. The thyroid gland is unremarkable. Multifocal lytic osseous metastases involving the visualized osseous structures, including the spine, ribs, scapulae, sternum, and calvarium. There are multilevel lytic lesions in the cervicothoracic spine with posterior vertebral body cortical breakthrough and posterior epidural extension worst at T6 level. Partially visualized large left loculated pleural effusion with adjacent compressive atelectasis and groundglass opacities in the left lung. There is a small right pleural effusion. There are calcified mediastinal lymph nodes. Mild increasing size of an extraosseous soft tissue underlying the right posterior 4th rib lytic lesion with extension into the right posterior lung/pleura. IMPRESSION: 1. Similar size heterogenous enhancing mass centered in the left sphenoid bone with associated osseous erosion and extension into the left frontal lobe, left middle cranial fossa, left landfill grader space. Similar mass effect on the adjacent left frontal lobe cerebral sulci with adjacent edema, not significantly changed from prior. Consider a contrast-enhanced MR brain for extent of intracranial invasion, as clinically indicated. 2. Mildly increasing size/extension into the left orbit superolateral extraconal space and left landfill grader space. Increasing left strap muscle invasion, compatible with progression of disease. 3. No substantial change in left intraparotid enhancing lesion and left submandibular lymph nodes. 4. Stable multifocal lytic osseous metastases involving the visualized osseous structures throughout the head and neck, as outlined above. Multilevel lytic lesion in the cervicothoracic spine with posterior vertebral body cortical breakthrough and epidural extension worst at T6 level. Consider MRI spine to exclude cord compression, as clinically indicated. 5. Partially visualized large loculated left pleural effusion with underlying atelectasis. Small right pleural effusion and pleural thickening are new as compared to prior study. Please refer to concurrent CT chest for chest findings. 6. Mild increase size of an extraosseous soft tissue component arising from the right posterior 4th rib with extension into the right pleura. Please refer to concurrent CT chest for chest findings. Dictated by: Maddy Lundberg MD The radiology attending physician has personally reviewed this study, and had reviewed and/or edited this written report and agrees with it. Electronically signed by: Ladan Pike M.D. Abdirashid Garcia MD IMG CT PROCEDURES Final Res ult * XR Chest 1 View (07/23/2024 2:43 PM CDT) Anatomical Region Laterality Modality Body, Chest N/A Computed Radiogr aphy 07/23/2024 3:23 PM CDT Impressions 07/23/2024 3:36 PM CDT The current study is compared with the prior radiograph dated 07/13/2024. Similar appearance of a moderate to large left pleural effusion with associated atelectasis. Possible tiny right pleural effusion. No pneumothorax. The left cardiomediastinal silhouette is obscured. Old right rib fracture noted. Dictated by: Giana Sandoval MD The radiology attending physician has personally reviewed this study, and had reviewed and/or edited this written report and agrees with it. Electronically signed by: Carol Lynne M.D. Narrative 07/23/2024 3:36 PM CDT EXAMINATION: 1 view chest radiograph Procedure Note Carol Lynne MD - 07/23/2024 EXAMINATION: 1 view chest radiograph IMPRESSION: The current study is compared with the prior radiograph dated 07/13/2024. Similar appearance of a moderate to large left pleural effusion with associated atelectasis. Possible tiny right pleural effusion. No pneumothorax. The left cardiomediastinal silhouette is obscured. Old right rib fracture noted. Dictated by: Giana Sandoval MD The radiology attending physician has personally reviewed this study, and had reviewed and/or edited this written report and agrees with it. Electronically signed by: Carol Lynne M.D. us Janie Ramirez MD IMG XR PROCEDURES Final Re sult * US Guided Thoracentesis (07/23/2024 2:43 PM CDT) Anatomical Region Laterality Modality Chest N/A Ultrasound 07/23/2024 3:29 PM CDT Impressions 07/23/2024 3:31 PM CDT Successful ultrasound-guided therapeutic left thoracentesis. Dictated by: Janie Ramirez MD The radiology attending physician has personally reviewed this study, and had reviewed and/or edited this written report and agrees with it. Electronically signed by: Jammie Blount M.D. 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 COMPARISON: CT 04/30/2024, ultrasound 07/13/2024 FINDINGS: Limited views of the posterior left chest show a large amount of pleural fluid with pleural nodularity compatible with known pleural metastatic disease. The left chest was marked appropriately with ultrasound guidance. TECHNIQUE: The procedure and its benefits and risks were explained to the patient. The potential risks included but were not limited to pneumothorax, bleeding, infection, and injury to adjacent organs. A site was localized for thoracentesis. The patient's overlying skin was prepped and draped in the usual sterile fashion. Local anesthesia was achieved via subcutaneous and deep administration with 6 mL of Lidocaine 1%. 5-Filipino One Step needle was advanced into the pleural cavity. Appropriate needle location was documented with continuous sonographic guidance. 1200 mL of serosanguineous pleural fluid were obtained. The patient's skin was cleaned and dressed. The patient tolerated the procedure well and was discharged in stable condition. The ultrasound obtained immediately following the procedure and the post procedure chest radiograph showed no pneumothorax. Dr. Jammie Blount M.D., the attending radiologist, was present from the beginning to the end of the procedure. Drs. Jammie Blount and Janie Ramirez MD performed the thoracentesis. Dr. Janie Ramirez MD (residential carpenter) personally participated in sonographic imaging of this patient. 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 COMPARISON: CT 04/30/2024, ultrasound 07/13/2024 FINDINGS: Limited views of the posterior left chest show a large amount of pleural fluid with pleural nodularity compatible with known pleural metastatic disease. The left chest was marked appropriately with ultrasound guidance. TECHNIQUE: The procedure and its benefits and risks were explained to the patient. The potential risks included but were not limited to pneumothorax, bleeding, infection, and injury to adjacent organs. A site was localized for thoracentesis. The patient's overlying skin was prepped and draped in the usual sterile fashion. Local anesthesia was achieved via subcutaneous and deep administration with 6 mL of Lidocaine 1%. 5-Filipino One Step needle was advanced into the pleural cavity. Appropriate needle location was documented with continuous sonographic guidance. 1200 mL of serosanguineous pleural fluid were obtained. The patient's skin was cleaned and dressed. The patient tolerated the procedure well and was discharged in stable condition. The ultrasound obtained immediately following the procedure and the post procedure chest radiograph showed no pneumothorax. Dr. Jammie Blount M.D., the attending radiologist, was present from the beginning to the end of the procedure. Drs. Jammie Blount and Janie Ramirez MD performed the thoracentesis. Dr. Janie Ramirez MD (residential carpenter) personally participated in sonographic imaging of this patient. IMPRESSION: Successful ultrasound-guided therapeutic left thoracentesis. Dictated by: Janie Ramirez MD The radiology attending physician has personally reviewed this study, and had reviewed and/or edited this written report and agrees with it. Electronically signed by: Jammie Blount M.D. us Abdirashid Garcia MD IMG US PROCEDURES Final Res ult * XR Chest 1 View (07/13/2024 3:26 PM CDT) Anatomical Region Laterality Modality Body, Chest N/A Computed Radiogr aphy 07/13/2024 4:53 PM CDT Impressions 07/13/2024 4:53 PM CDT A moderate to large sized left pleural effusion is not significantly changed, with unchanged compressive atelectasis. The right lung is clear. No pneumothorax is identified. The cardiomediastinal silhouette remains partially obscured but appears unchanged. And old healed right upper rib fracture is again noted. Electronically signed by: Patrice Mcdowell M.D. Narrative 07/13/2024 4:53 PM CDT EXAMINATION: XR CHEST 1 VIEW COMPARISON: 07/06/2024 Procedure Note Patrice Mcdowell MD PhD - 07/13/2024 EXAMINATION: XR CHEST 1 VIEW COMPARISON: 07/06/2024 IMPRESSION: A moderate to large sized left pleural effusion is not significantly changed, with unchanged compressive atelectasis. The right lung is clear. No pneumothorax is identified. The cardiomediastinal silhouette remains partially obscured but appears unchanged. And old healed right upper rib fracture is again noted. Electronically signed by: Patrice Mcdowell M.D. Dez Le II, MD IMG XR PROCEDURES F inal Result * US Guided Thoracentesis (07/13/2024 3:21 PM CDT) Anatomical Region Laterality Modality Chest N/A Ultrasound 07/13/2024 4:10 PM CDT Impressions 07/13/2024 4:10 PM CDT 1. Successful ultrasound-guided therapeutic left thoracentesis. Electronically signed by: Dez Le M.D. Narrative 07/13/2024 4:10 PM CDT EXAMINATION: THERAPEUTIC THORACENTESIS HISTORY: Metastatic tonsillar cancer with recurrent malignant left pleural effusion COMPARISON: Ultrasound-guided thoracentesis 07/06/2024 FINDINGS: Limited views of the posterior left chest show a large amount of pleural fluid. The left chest was marked appropriately with ultrasound guidance. TECHNIQUE: The procedure and its benefits and risks were explained to the patient. The potential risks included but were not limited to pneumothorax, bleeding, infection, and injury to adjacent organs. A site was localized for thoracentesis. The patient's overlying skin was prepped and draped in the usual sterile fashion. Local anesthesia was achieved via subcutaneous and deep administration with 10 mL of Lidocaine 1%. 5-Filipino One Step needle was advanced into the pleural cavity. Appropriate needle location was documented with continuous sonographic guidance. 1400 mL of sanguinous fluid were obtained. The patient's skin was cleaned and dressed. The patient tolerated the procedure well and was discharged in stable condition. The ultrasound obtained immediately following the procedure and the post procedure chest radiograph showed no pneumothorax. Dez Le M.D., the attending radiologist, was present from the beginning to the end of the procedure. Dr. Melissa Almodovar performed the thoracentesis. Procedure Note Dez Le II, MD - 07/13/2024 EXAMINATION: THERAPEUTIC THORACENTESIS HISTORY: Metastatic tonsillar cancer with recurrent malignant left pleural effusion COMPARISON: Ultrasound-guided thoracentesis 07/06/2024 FINDINGS: Limited views of the posterior left chest show a large amount of pleural fluid. The left chest was marked appropriately with ultrasound guidance. TECHNIQUE: The procedure and its benefits and risks were explained to the patient. The potential risks included but were not limited to pneumothorax, bleeding, infection, and injury to adjacent organs. A site was localized for thoracentesis. The patient's overlying skin was prepped and draped in the usual sterile fashion. Local anesthesia was achieved via subcutaneous and deep administration with 10 mL of Lidocaine 1%. 5-Filipino One Step needle was advanced into the pleural cavity. Appropriate needle location was documented with continuous sonographic guidance. 1400 mL of sanguinous fluid were obtained. The patient's skin was cleaned and dressed. The patient tolerated the procedure well and was discharged in stable condition. The ultrasound obtained immediately following the procedure and the post procedure chest radiograph showed no pneumothorax. Dez Le M.D., the attending radiologist, was present from the beginning to the end of the procedure. Dr. Melissa Almodovar performed the thoracentesis. IMPRESSION: 1. Successful ultrasound-guided therapeutic left thoracentesis. Electronically signed by: Dez Le M.D. Abdirashid Garcia MD [facility]ED[place] Final Res ult * Protein / creatinine ratio, urine, random (07/08/2024 7:59 AM CDT) Protein, ur, quant 27.3 mg/dL Comment: Interpretive Data No reference range established. Current interpretive data was last revised 2018. Creatinine Ur 220.1 mg/dL [facility] Comment: Interpretive Data No reference range established. Current interpretive data was last revised 2018. Protein/creatinin e ratio 124.0 0.0 - 180.0 mg/g CR [facility] Urine 07/08/2024 7:59 AM CDT 07/08/2024 8:38 AM CDT Abdirashid Garcia MD LAB URINE ORDERABLES Final Result C[facility]THIA LYON [facility] Department [place] [address] * eGFR (07/08/2024 7:38 AM CDT) [facility] eGFR >90 >=60 mL/min/1. 73 m2 Comment: Interpretive Data Reference Interval Normal >/= 90 mL/min/1.73m2 Mildly decreased* 60 - 89 mL/min/1.73m2 Mildly to moderately decreased 45 - 59 mL/min/1.73m2 Moderately to severely decreased 30 - 44 mL/min/1.73m2 Severely decreased 15 - 29 mL/min/1.73m2 Kidney Failure < 15 mL/min/1.73m2 *Relative to young adult level Estimated glomerular filtration rate is determined by the 2020 CKD-EPI equation recommended by the National Kid[employer] (A Unifying Approach to GFR Estimation: Recommendations of the NKF-ASK Task Force on Reassessing the Inclusion of Race in Diagnosing Kidney Disease, JASN 2020). The CKD-EPI equation should not be used for patients with unstable renal function and has not been validated in children and those over 70. Current interpretive data was last reviewed 2021. Blood 07/08/2024 7:38 AM CDT 07/08/2024 7:42 AM CDT Abdirashid Garcia MD LAB BLOOD ORDERABLES Final Result Performing Organization Address City/[facility] Co de Phone Number CINTHIA ZIEGLER [facility] Department [place] [address] * (ABNORMAL) CBC with auto differential (07/08/2024 7:38 AM CDT) [facility] WBC 8.1 3.8 - 9.9 K/cumm Comment:Testing performed by : [facility], [address] [place] [phone] Hgb 12.4(L) 13.0 - 17.5 g/dL [facility] Comment:Testing performed by : [facility], [address] [place] [address] Hct 36.7(L) 38.9 - 50.3 % [facility] Comment:Testing performed by : [facility], [address] [place] [address] Plt 288 150 - 400 K/cumm [facility] Comment:Testing performed by : [facility], [address] [place] [address] MPV 6.0(L) 6.8 - 10.4 fL [facility] Comment:Testing performed by : [facility], [address] [place] [address] RBC 4.31 4.30 - 5.80 M/cumm [facility] Comment:Testing performed by : [facility], [address] [place] [address] MCV 85.1 81.3 - 96.4 fL [facility] Comment:Testing performed by : [facility], [address] [place] [address] MCH 28.8 27.1 - 33.3 pg [facility]J Comment:Testing performed by : [facility], [address] [place] [address] MCHC 33.8 32.3 - 35.7 g/dL [facility] Comment:Testing performed by : [facility], [address] [place] [address] RDW CV 18.2(H) 11.1 - 14.9 % [facility] Comment:Testing performed by : [facility], [address] [place] [address] NRBC abs 0.00 0.00 - 0.01 K/cumm [facility] Comment:Testing performed by : [facility], [address] [place] [address] Blood 07/08/2024 7:38 AM CDT 07/08/2024 7:41 AM CDT Abdirashid Garcia MD LAB BLOOD ORDERABLES Edited Result - Final [facility] Department [place] [address] * (ABNORMAL) Manual Differential (07/08/2024 7:38 AM CDT) Cells Counted 100 Comment:Testing performed by : [facility], [address] [place] [phone] Neutrophil abs 6.0 1.5 - 6.5 K/cumm [facility]J Comment:Testing performed by : [facility], [address] [place] [phone] Lymphocyte abs 0.4(L) 0.8 - 3.3 K/cumm [facility] Comment:Testing performed by : [facility], [address] [place], [place] [phone] Monocyte abs 1.1(H) 0.2 - 0.8 K/cumm [facility] Comment:Testing performed by : [facility], [address] [place] [phone] Eosinophil abs 0.1 0.0 - 0.5 K/cumm C[facility]ER BJ Comment:Testing performed by : [facility], [address] [place] [phone] Basophil abs 0.2(H) 0.0 - 0.1 K/cumm CERNER BJ Comment:Testing performed by : [facility], [address] [place] [phone] Neutrophil pct 74.0 % [facility] Comment: Interpretive Data Percent cell count reference ranges are not reported, since discordance with absolute values may lead to misinterpretation of CBC data. Current Interpretive Data was last revised on 2017. Testing performed by: [facility], [address] [place] [phone] Lymphocyte pct 5.0 % C[facility]ER [facility]J Comment: Interpretive Data Percent cell count reference ranges are not reported, since discordance with absolute values may lead to misinterpretation of CBC data. Current Interpretive Data was last revised on 2017. Testing performed by: [facility], [address] [place] [address] [place] [phone] Monocyte pct 14.0 % [facility] Comment: Interpretive Data Percent cell count reference ranges are not reported, since discordance with absolute values may lead to misinterpretation of CBC data. Current Interpretive Data was last revised on 2017. Testing performed by: [facility], [address] [place], [place] [phone] Eosinophil pct 1.0 % [facility] Comment: Interpretive Data Percent cell count reference ranges are not reported, since discordance with absolute values may lead to misinterpretation of CBC data. Current Interpretive Data was last revised on 2017. Testing performed by: [facility], [address] [place] [phone] Basophil pct 2.0 % [facility] Comment: Interpretive Data Percent cell count reference ranges are not reported, since discordance with absolute values may lead to misinterpretation of CBC data. Current Interpretive Data was last revised on 2017. Testing performed by: [facility], [address] [place], [place] [phone] Metamyelocyte pct 4.0(H) 0.0 - 0.0 % [facility] Comment:Testing performed by : [facility], [address] [place], [place] [phone] Polychromasia 1+(A) [facility] Comment:Testing performed by : [facility], [address] [place], [place] [phone] Hypochromasia 1+(A) [facility] Comment:Testing performed by : [facility], [address] [place] [phone] Anisocytosis 1+(A) [facility] Comment:Testing performed by : [facility], [address] [place] [phone] Poikilocytosis 1+(A) [facility] Comment:Testing performed by : [facility], [address] [place] [phone] Microcytes 1+(A) [facility] Comment:Testing performed by : [facility], [address] [place], [place] [phone] Macrocytes 1+(A) [facility] Comment:Testing performed by : [facility], [address] [place] [phone] Elliptocytes 1+(A) [facility] Comment:Testing performed by : [facility], [address] [place] [phone] Platelet estimate Adequate [facility] Comment:Testing performed by : [facility], [address] [place] [phone] Blood 07/08/2024 7:38 AM CDT 07/08/2024 7:41 AM CDT Abdirashid Garcia MD LAB BLOOD ORDERABLES Final Result Performing Organization Address [facility] de Phone Number [facility] Department [place] [address] * (ABNORMAL) TSH (07/08/2024 7:38 AM CDT) Thyroid Stimulating Hormone 5.26(H) 0.30 - 4.20 mcIUnit/mL Blood 07/08/2024 7:38 AM CDT 07/08/2024 7:42 AM CDT Abdirashid Garcia MD LAB BLOOD ORDERABLES Final Result Performing Organization Address [facility] de Phone Number [facility] Department [place] [address] * T4, free (07/08/2024 7:38 AM CDT) Free T4 1.21 0.90 - 1.70 ng/dL Blood 07/08/2024 7:38 AM CDT 07/08/2024 7:42 AM CDT Abdirashid Garcia MD LAB BLOOD ORDERABLES Final Result Performing Organization Address [facility]/State/ZIP Co de Phone Number [facility] Department [place] [address] * Magnesium (07/08/2024 7:38 AM CDT) [facility] Magnesium 2.1 1.4 - 2.5 mg/dL Blood 07/08/2024 7:38 AM CDT 07/08/2024 7:42 AM CDT Abdirashid Garcia MD LAB BLOOD ORDERABLES Final Result [facility] [place] [address] * (ABNORMAL) Comprehensive metabolic panel (07/08/2024 7:38 AM CDT) [facility] Sodium 137 135 - 145 mmol/L Potassium, pl 4.4 3.3 - 4.9 mmol/L [facility] Chloride 99 97 - 110 mmol/L [facility] CO2 25 22 - 32 mmol/L [facility] Anion gap 13 2 - 15 mmol/L [facility] BUN 20 6 - 25 mg/dL [facility] Creatinine 0.84 0.80 - 1.30 mg/dL [facility] Glucose 131 70 - 199 mg/dL [facility] Comment: Interpretive Data Fasting glucose >/= 126 mg/dl is diagnostic for diabetes. Fasting is defined as no caloric intake for at least 8 hours. Fasting glucose between 100 mg/dl to 125 mg/dl is diagnostic of prediabetes. In a patient with classic symptoms of hyperglycemia or hyperglycemic crisis, a random glucose >/= 200 mg/dl is diagnostic for diabetes. In the absence of unequivocal hyperglycemia, results should be confirmed by repeat testing. The classification and Diagnosis of Diabetes Diabetes Care 202; 46: S19-S40. Current interpretive data was last revised 2022. Calcium 10.6(H) 8.5 - 10.3 mg/dL [facility] Bilirubin, total 0.3 0.1 - 1.2 mg/dL [facility] Protein, pl 7.8 6.5 - 8.5 g/dL [facility] Albumin 3.9 3.5 - 5.0 g/dL [facility] Alk phos 142(H) 40 - 130 Units/L [facility] ALT 19 7 - 55 Units/L [facility] AST 196(H) 10 - 50 Units/L [facility] Blood 07/08/2024 7:38 AM CDT 07/08/2024 7:42 AM CDT us Abdirashid Garcia MD LAB BLOOD ORDERABLES Final Result [facility] Department [place] [address] * eGFR (07/06/2024 3:44 PM CDT) eGFR See Comment >=60 Comment: Credited, collection error. Deleted at the Request of Afshan Armendariz [facility] on 07/07/2024 12:36 by tp/dgjeremy . Interpretive Data Reference Interval Normal >/= 90 mL/min/1.73m2 Mildly decreased* 60 - 89 mL/min/1.73m2 Mildly to moderately decreased 45 - 59 mL/min/1.73m2 Moderately to severely decreased 30 - 44 mL/min/1.73m2 Severely decreased 15 - 29 mL/min/1.73m2 Kidney Failure < 15 mL/min/1.73m2 *Relative to young adult level Estimated glomerular filtration rate is determined by the 2020 CKD-EPI equation recommended by the National Kidney Foundation (A Unifying Approach to GFR Estimation: Recommendations of the NKF-ASK Task Force on Reassessing the Inclusion of Race in Diagnosing Kidney Disease, JASN 2020). The CKD-EPI equation should not be used for patients with unstable renal function and has not been validated in children and those over 70. Current interpretive data was last reviewed 2021. Blood 07/06/2024 3:44 PM CDT 07/06/2024 4:07 PM CDT us Abdirashid Garcia MD LAB BLOOD ORDERABLES Edited Result - Final [facility] Department [place] [address] * (ABNORMAL) Differential, auto (07/06/2024 3:44 PM CDT) Neutrophil abs 5.8 1.5 - 6.5 K/cumm Imm gran abs 0.4(H) 0.0 - 0.1 K/cumm [facility] Lymphocyte abs 0.9 0.8 - 3.3 K/cumm [facility] Monocyte abs 1.3(H) 0.2 - 0.8 K/cumm [facility] Eosinophil abs 0.1 0.0 - 0.5 K/cumm [facility] Basophil abs 0.1 0.0 - 0.1 K/cumm [facility] Neutrophil pct 68.0 % [facility] Comment: Interpretive Data Percent cell count reference ranges are not reported, since discordance with absolute values may lead to misinterpretation of CBC data. Current Interpretive Data was last revised on 2017. Imm gran pct 4.1 % [facility] Comment: Interpretive Data Percent cell count reference ranges are not reported, since discordance with absolute values may lead to misinterpretation of CBC data. Current Interpretive Data was last revised on 2017. Lymphocyte pct 10.8 % [facility] Comment: Interpretive Data Percent cell count reference ranges are not reported, since discordance with absolute values may lead to misinterpretation of CBC data. Current Interpretive Data was last revised on 2017. Monocyte pct 15.2 % [facility] Comment: Interpretive Data Percent cell count reference ranges are not reported, since discordance with absolute values may lead to misinterpretation of CBC data. Current Interpretive Data was last revised on 2017. Eosinophil pct 1.2 % [facility] Comment: Interpretive Data Percent cell count reference ranges are not reported, since discordance with absolute values may lead to misinterpretation of CBC data. Current Interpretive Data was last revised on 2017. Basophil pct 0.7 % [facility] Comment: Interpretive Data Percent cell count reference ranges are not reported, since discordance with absolute values may lead to misinterpretation of CBC data. Current Interpretive Data was last revised on 2017. Blood 07/06/2024 3:44 PM CDT 07/06/2024 3:58 PM CDT Abdirashid Garcia MD LAB BLOOD ORDERABLES Final Result Performing Organization Address [facility] de Phone Number [facility] [place] [address] * (ABNORMAL) CBC with auto differential (07/06/2024 3:44 PM CDT) WBC 8.5 3.8 - 9.9 K/cumm Hgb 11.8(L) 13.0 - 17.5 g/dL [facility] Hct 35.7(L) 38.9 - 50.3 % [facility] Plt 249 150 - 400 K/cumm [facility] MPV 8.4(L) 9.1 - 12.3 fL [facility] RBC 4.17(L) 4.30 - 5.80 M/cumm [facility] MCV 85.6 81.3 - 96.4 fL [facility] MCH 28.3 27.1 - 33.3 pg [facility] MCHC 33.1 32.3 - 35.7 g/dL [facility] RDW CV 16.5(H) 11.1 - 14.9 % [facility] RDW SD 51.3(H) 35.7 - 48.1 fL [facility] NRBC abs 0.11(H) 0.00 - 0.01 K/cumm [facility] Blood 07/06/2024 3:44 PM CDT 07/06/2024 3:58 PM CDT Abdirashid Garcia MD LAB BLOOD ORDERABLES Final Result Performing Organization Address [facility] Co de Phone Number [facility] Department [place] [address] * Protein / creatinine ratio, urine, random (07/06/2024 3:44 PM CDT) Protein, ur, quant See Comment mg/dL Comment: Credited, collection error. Deleted at the Request of [facility] [place] on 07/07/2024 12:36 by tp/dga . Interpretive Data No reference range established. Current interpretive data was last revised 2018. Creatinine Ur See Comment mg/dL [facility] Comment: Credited, collection error. Deleted at the Request of [facility] [place] on 07/07/2024 12:36 by tp/dga . Interpretive Data No reference range established. Current interpretive data was last revised 2018. Protein/creatini ne ratio See Comment 0.0 - 180.0 mg/g CR [facility] Comment:Credited, collection error. Deleted at the Request of [facility] [place] on 07/07/2024 12:36 by tp/dga . Urine 07/06/2024 3:44 PM CDT 07/06/2024 3:58 PM CDT Abdirashid Garcia MD LAB URINE ORDERABLES Edited Result - Final Performing Organization Address [facility] Co de Phone Number [facility] [place] [employer] [address] * TSH (07/06/2024 3:44 PM CDT) Thyroid Stimulating Hormone See Comment 0.30 - 4.20 mcIUnit/m L Comment:Credited, collection error. Deleted at the Request of [facility] [place] on 07/07/2024 12:36 by tp/dga . Blood 07/06/2024 3:44 PM CDT 07/06/2024 3:58 PM CDT Abdirashid Garcia MD LAB BLOOD ORDERABLES Edited Result - Final Performing Organization Address City/[facility]/ZIP Co de Phone Number [facility] [place] [place] [address] * T4, free (07/06/2024 3:44 PM CDT) Pathologist [facility] Free T4 See Comment 0.90 - 1.70 ng/dL Comment:Credited, collection error. Deleted at the Request of [facility] [place] on 07/07/2024 12:36 by tp/dga . Blood 07/06/2024 3:44 PM CDT 07/06/2024 3:58 PM CDT Abdirashid Garcia MD LAB BLOOD ORDERABLES Edited Result - Final Performing Organization Address [facility] Co de Phone Number [facility] [place] [address] * Magnesium (07/06/2024 3:44 PM CDT) [facility] Magnesium See Comment 1.4 - 2.5 mg/dL Comment:Credited, collection error. Deleted at the Request of [facility] [place] on 07/07/2024 12:36 by tp/dga . Blood 07/06/2024 3:44 PM CDT 07/06/2024 3:58 PM CDT Abdirashid Garcia MD LAB BLOOD ORDERABLES Edited Result - Final Performing Organization Address [facility] Co de Phone Number [facility] [place] [address] * Comprehensive metabolic panel (07/06/2024 3:44 PM CDT) [facility] Sodium See Comment 135 - 145 mmol/L Comment:Credited, collection error. Deleted at the Request of [facility] [place] on 07/07/2024 12:36 by tp/dga . Potassium, pl See Comment 3.3 - 4.9 mmol/L [facility] Comment:Credited, collection error. Deleted at the Request of [facility] [place] on 07/07/2024 12:36 by tp/dga . Chloride See Comment 97 - 110 mmol/L [facility] Comment:Credited, collection error. Deleted at the Request of [facility] [place] on 07/07/2024 12:36 by tp/dga . CO2 See Comment 22 - 32 mmol/L [facility] Comment:Credited, collection error. Deleted at the Request of [facility] [place] on 07/07/2024 12:36 by tp/dga . Anion gap See Comment 2 - 15 mmol/L [facility] Comment:Credited, collection error. Deleted at the Request of [facility] [place] on 07/07/2024 12:36 by tp/dga . BUN See Comment 6 - 25 mg/dL [facility] Comment:Credited, collection error. Deleted at the Request of [facility] [place] on 07/07/2024 12:36 by tp/dga . Creatinine See Comment 0.80 - 1.30 mg/dL [facility] Comment:Credited, collection error. Deleted at the Request of [facility] [place] on 07/07/2024 12:36 by tp/dga . Glucose See Comment 70 - 199 mg/dL [facility] Comment: Credited, collection error. Deleted at the Request of [facility] [place] on 07/07/2024 12:36 by tp/dga . Interpretive Data Fasting glucose >/= 126 mg/dl is diagnostic for diabetes. Fasting is defined as no caloric intake for at least 8 hours. Fasting glucose between 100 mg/dl to 125 mg/dl is diagnostic of prediabetes. In a patient with classic symptoms of hyperglycemia or hyperglycemic crisis, a random glucose >/= 200 mg/dl is diagnostic for diabetes. In the absence of unequivocal hyperglycemia, results should be confirmed by repeat testing. The classification and Diagnosis of Diabetes Diabetes Care 2021; 46: S19-S40. Current interpretive data was last revised 2022. Calcium See Comment 8.5 - 10.3 mg/dL [facility] Comment:Credited, collection error. Deleted at the Request of [facility] [place] on 07/07/2024 12:36 by tp/dga . Bilirubin, total See Comment 0.1 - 1.2 mg/dL [facility] Comment:Credited, collection error. Deleted at the Request of [facility] [place] on 07/07/2024 12:36 by tp/dga . Protein, pl See Comment 6.5 - 8.5 g/dL [facility] Comment:Credited, collection error. Deleted at the Request of [facility] [place] on 07/07/2024 12:36 by tp/dga . Albumin See Comment 3.5 - 5.0 g/dL [facility] Comment:Credited, collection error. Deleted at the Request of [facility] [place] on 07/07/2024 12:36 by tp/dga . Alk phos See Comment 40 - 130 Units/L [facility] Comment:Credited, collection error. Deleted at the Request of [facility] [place] on 07/07/2024 12:36 by tp/dga . ALT See Comment 7 - 55 Units/L [facility] Comment:Credited, collection error. Deleted at the Request of [facility] [place] on 07/07/2024 12:36 by tp/dga . AST See Comment 10 - 50 Units/L [facility] Comment:Credited, collection error. Deleted at the Request of [facility] [place] on 07/07/2024 12:36 by tp/dga . Blood 07/06/2024 3:44 PM CDT 07/06/2024 3:58 PM CDT Abdirashid Garcia MD LAB BLOOD ORDERABLES Edited Result - Final [facility] Department [place] [address] * XR Chest 1 View (07/06/2024 2:57 PM CDT) Anatomical Region Laterality Modality Body, Chest N/A Computed Radiogr aphy 07/06/2024 3:39 PM CDT Impressions 07/07/2024 12:12 PM CDT The current study is compared with the prior radiograph dated 06/22/2024. No pneumothorax. Large left pleural effusion, increased from 06/22/2024. Possible trace right pleural effusion. No pneumothorax. Partially obscured cardiomediastinal silhouette appears unchanged. Dictated by: Peyton Castillo M.D. The radiology attending physician has personally reviewed this study, and had reviewed and/or edited this written report and agrees with it. Electronically signed by: Patrice Mcdowell M.D. Narrative 07/07/2024 12:12 PM CDT EXAMINATION: 1 view chest radiograph Procedure Note Patrice Mcdowell MD PhD - 07/07/2024 EXAMINATION: 1 view chest radiograph IMPRESSION: The current study is compared with the prior radiograph dated 06/22/2024. No pneumothorax. Large left pleural effusion, increased from 06/22/2024. Possible trace right pleural effusion. No pneumothorax. Partially obscured cardiomediastinal silhouette appears unchanged. Dictated by: Peyton Castillo M.D. The radiology attending physician has personally reviewed this study, and had reviewed and/or edited this written report and agrees with it. Electronically signed by: Patrice Mcdowell M.D. us Tammy ESTES IMG XR PROCEDURES Final R esult * US Guided Thoracentesis Left (07/06/2024 2:45 PM CDT) Anatomical Region Laterality Modality Chest N/A Ultrasound 07/06/2024 4:00 PM CDT Impressions 07/06/2024 4:00 PM CDT 1. Successful ultrasound-guided therapeutic thoracentesis. The radiology attending physician has personally reviewed this study, and had reviewed and/or edited this written report and agrees with it. 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 COMPARISON: Prior ultrasound-guided thoracentesis from 06/22/2024 FINDINGS: Limited views of the posterior left chest show a moderate amount of pleural fluid. The left chest was marked appropriately with ultrasound guidance. TECHNIQUE: The procedure and its benefits and risks were explained to the patient. The potential risks included but were not limited to pneumothorax, bleeding, infection, and injury to adjacent organs. A site was localized for thoracentesis. The patient's overlying skin was prepped and draped in the usual sterile fashion. Local anesthesia was achieved via subcutaneous and deep administration with 15 mL of Lidocaine 1%. 5-Filipino One Step needle was advanced into the pleural cavity. Appropriate needle location was documented with continuous sonographic guidance. 1400 mL of sanguigenous fluid were obtained. CBC ordered due to sanguinous fluid , result pending. Patient is hemodynamically stable. The patient's skin was cleaned and dressed. The patient tolerated the procedure well and was discharged in stable condition. The ultrasound obtained immediately following the procedure and the post procedure chest radiograph showed no pneumothorax. Sherice Aguilera PA-C, was present from the beginning to the end of the procedure. Sherice Romero and Tammy ESTES performed the thoracentesis. 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 COMPARISON: Prior ultrasound-guided thoracentesis from 06/22/2024 FINDINGS: Limited views of the posterior left chest show a moderate amount of pleural fluid. The left chest was marked appropriately with ultrasound guidance. TECHNIQUE: The procedure and its benefits and risks were explained to the patient. The potential risks included but were not limited to pneumothorax, bleeding, infection, and injury to adjacent organs. A site was localized for thoracentesis. The patient's overlying skin was prepped and draped in the usual sterile fashion. Local anesthesia was achieved via subcutaneous and deep administration with 15 mL of Lidocaine 1%. 5-Filipino One Step needle was advanced into the pleural cavity. Appropriate needle location was documented with continuous sonographic guidance. 1400 mL of sanguigenous fluid were obtained. CBC ordered due to sanguinous fluid , result pending. Patient is hemodynamically stable. The patient's skin was cleaned and dressed. The patient tolerated the procedure well and was discharged in stable condition. The ultrasound obtained immediately following the procedure and the post procedure chest radiograph showed no pneumothorax. Sherice Aguilera PA-C, was present from the beginning to the end of the procedure. Sherice Romero and Tammy ESTES performed the thoracentesis. IMPRESSION: 1. Successful ultrasound-guided therapeutic thoracentesis. The radiology attending physician has personally reviewed this study, and had reviewed and/or edited this written report and agrees with it. Electronically signed by: Sherice Aguilera PA-C Abdirashid Garcia MD IM US PROCEDURES Final Res ult * US Guided Thoracentesis Left (06/22/2024 11:33 AM WATER SYSTEMS DESIGNER) Anatomical Region Laterality Modality Chest N/A Ultrasound 06/22/2024 12:0 7 PM WATER SYSTEMS DESIGNER Impressions 06/22/2024 12:07 PM WATER SYSTEMS DESIGNER 1. Successful ultrasound-guided therapeutic thoracentesis. Electronically signed by: Sherice Aguilera PA-C Narrative 06/22/2024 12:07 PM WATER SYSTEMS DESIGNER EXAMINATION: THERAPEUTIC THORACENTESIS HISTORY: 5-year-old male with tonsillar cancer and left pleural effusion here for left thoracentesis. COMPARISON: Prior ultrasound guided thoracentesis FINDINGS: Limited views of the posterior left chest show a moderate amount of pleural fluid. The left chest was marked appropriately with ultrasound guidance. TECHNIQUE: The procedure and its benefits and risks were explained to the patient. The potential risks included but were not limited to pneumothorax, bleeding, infection, and injury to adjacent organs. A site was localized for thoracentesis. The patient's overlying skin was prepped and draped in the usual sterile fashion. Local anesthesia was achieved via subcutaneous and deep administration with 9 mL of Lidocaine 1%. 5-Filipino One Step needle was advanced into the pleural cavity. Appropriate needle location was documented with continuous sonographic guidance. 1300 mL of wes-colored pleural fluid were obtained. The patient's skin was cleaned and dressed. The patient tolerated the procedure well and was discharged in stable condition. The ultrasound obtained immediately following the procedure and the post procedure chest radiograph showed no pneumothorax. Sherice Aguilera PA-C, the Physician Patrol Police Lieutenant, was present from the beginning to the end of the procedure. Sherice ESTES performed the thoracentesis. Dr. Maximiliano Dean was present and participated in the procedure. Procedure Note Sherice Aguilera PA - 06/22/2024 EXAMINATION: THERAPEUTIC THORACENTESIS HISTORY: 5-year-old male with tonsillar cancer and left pleural effusion here for left thoracentesis. COMPARISON: Prior ultrasound guided thoracentesis FINDINGS: Limited views of the posterior left chest show a moderate amount of pleural fluid. The left chest was marked appropriately with ultrasound guidance. TECHNIQUE: The procedure and its benefits and risks were explained to the patient. The potential risks included but were not limited to pneumothorax, bleeding, infection, and injury to adjacent organs. A site was localized for thoracentesis. The patient's overlying skin was prepped and draped in the usual sterile fashion. Local anesthesia was achieved via subcutaneous and deep administration with 9 mL of Lidocaine 1%. 5-Filipino One Step needle was advanced into the pleural cavity. Appropriate needle location was documented with continuous sonographic guidance. 1300 mL of wes-colored pleural fluid were obtained. The patient's skin was cleaned and dressed. The patient tolerated the procedure well and was discharged in stable condition. The ultrasound obtained immediately following the procedure and the post procedure chest radiograph showed no pneumothorax. Sherice Aguilera PA-C, the Physician [employer] Lieutenant, was present from the beginning to the end of the procedure. Sherice ESTES performed the thoracentesis. Dr. Maximiliano Dean was present and participated in the procedure. IMPRESSION: 1. Successful ultrasound-guided therapeutic thoracentesis. Electronically signed by: Sherice Aguilera PA-C us Abdirashid Garcia MD IM US PROCEDURES Final Res ult * XR Chest 1 View (06/22/2024 11:27 AM WATER SYSTEMS DESIGNER) Anatomical Region Laterality Modality Body, Chest N/A Computed Radiogr aphy 06/22/2024 11:4 7 AM WATER SYSTEMS DESIGNER Impressions 06/22/2024 2:20 PM WATER SYSTEMS DESIGNER Comparison is made to radiograph dated 06/11/2024. No significant change in moderate to large left pleural effusion with associated atelectasis. No pneumothorax. The right lung is clear. Stable cardiac mediastinal silhouette. Old right rib fracture. Dictated by: Salas Whittaker MD The radiology attending physician has personally reviewed this study, and had reviewed and/or edited this written report and agrees with it. Electronically signed by: Mac Robles M.D. Narrative 06/22/2024 2:20 PM WATER SYSTEMS DESIGNER EXAMINATION: 1 view chest radiograph Procedure Note Mac Robles MD - 06/22/2024 EXAMINATION: 1 view chest radiograph IMPRESSION: Comparison is made to radiograph dated 06/11/2024. No significant change in moderate to large left pleural effusion with associated atelectasis. No pneumothorax. The right lung is clear. Stable cardiac mediastinal silhouette. Old right rib fracture. Dictated by: Salas Whittaker MD The radiology attending physician has personally reviewed this study, and had reviewed and/or edited this written report and agrees with it. Electronically signed by: Mac Robles M.D. us Sherice ESTES IMG XR PROCEDURES Final Re sult * Protein / creatinine ratio, urine, random (06/17/2024 8:13 AM WATER SYSTEMS DESIGNER) Pathologist [facility] Protein, ur, quant 30.2 mg/dL Comment: Interpretive Data No reference range established. Current interpretive data was last revised 2018. Creatinine Ur 294.8 mg/dL [facility] Comment: Interpretive Data No reference range established. Current interpretive data was last revised 2018. Protein/creatinin e ratio 102.4 0.0 - 180.0 mg/g CR [facility] Urine 06/17/2024 8:13 AM WATER SYSTEMS DESIGNER 06/17/2024 8:23 AM WATER SYSTEMS DESIGNER us Leola Alvarez HARDSCAPE FOREMAN LAB URINE ORDERABLES Final Result [facility] Department [place] [address] * eGFR (06/17/2024 8:00 AM WATER SYSTEMS DESIGNER) Pathologist [facility] eGFR >90 >=60 mL/min/1. 73 m2 Comment: Interpretive Data Reference Interval Normal >/= 90 mL/min/1.73m2 Mildly decreased* 60 - 89 mL/min/1.73m2 Mildly to moderately decreased 45 - 59 mL/min/1.73m2 Moderately to severely decreased 30 - 44 mL/min/1.73m2 Severely decreased 15 - 29 mL/min/1.73m2 Kidney Failure < 15 mL/min/1.73m2 *Relative to young adult level Estimated glomerular filtration rate is determined by the 2020 CKD-EPI equation recommended by the National [employer] (A Unifying Approach to GFR Estimation: Recommendations of the NKF-ASK Task Force on Reassessing the Inclusion of Race in Diagnosing Kidney Disease, JASN 2020). The CKD-EPI equation should not be used for patients with unstable renal function and has not been validated in children and those over 70. Current interpretive data was last reviewed 2021. Blood 06/17/2024 8:00 AM WATER SYSTEMS DESIGNER 06/17/2024 8:02 AM WATER SYSTEMS DESIGNER Leola Alvarez HARDSCAPE FOREMAN LAB BLOOD ORDERABLES Final Result [facility] Department [place] [address] * (ABNORMAL) CBC with auto differential (06/17/2024 8:00 AM WATER SYSTEMS DESIGNER) WBC 7.5 3.8 - 9.9 K/cumm Comment:Testing performed by : [facility], [address] [place] [phone] Hgb 13.1 13.0 - 17.5 g/dL [facility] Comment:Testing performed by : [facility], [address] [place] [address] Hct 39.3 38.9 - 50.3 % [facility] Comment:Testing performed by : [facility], [address] [place] [address] Plt 295 150 - 400 K/cumm [facility] Comment:Testing performed by : [facility], [address] [place] [phone] MPV 6.1(L) 6.8 - 10.4 fL CERLINDA ZIEGLER Comment:Testing performed by : [facility], [address] [place] [address] RBC 4.60 4.30 - 5.80 M/cumm [facility]IA [facility] Comment:Testing performed by : [facility], [address] [place] [address] MCV 85.3 81.3 - 96.4 fL [facility]IA [facility]GLER Comment:Testing performed by : [facility], [address] [place] [address] MCH 28.5 27.1 - 33.3 pg [facility]ER Comment:Testing performed by : [facility], [address] [place] [address] MCHC 33.4 32.3 - 35.7 g/dL [facility]IEGLER Comment:Testing performed by : [facility], [address] [place] [address] RDW CV 17.4(H) 11.1 - 14.9 % [facility] Comment:Testing performed by : [facility], [address] [place] [address] NRBC abs 0.00 0.00 - 0.01 K/cumm [facility] Comment:Testing performed by : [facility], [address] [place] [address] Blood 06/17/2024 8:00 AM WATER SYSTEMS DESIGNER 06/17/2024 8:01 AM WATER SYSTEMS DESIGNER us Leola Alvarez HARDSCAPE FOREMAN LAB BLOOD ORDERABLES Final Result [facility] Department [place] [address] * (ABNORMAL) Manual Differential (06/17/2024 8:00 AM WATER SYSTEMS DESIGNER) Cells Counted 201 Comment:Testing performed by : [facility], [address] [place] [phone] Neutrophil abs 5.3 1.5 - 6.5 K/cumm [facility] Comment:Testing performed by : [facility], [address] [place] [phone] Lymphocyte abs 1.0 0.8 - 3.3 K/cumm [facility] Comment:Testing performed by : [facility], [address] [place] [phone] Monocyte abs 0.7 0.2 - 0.8 K/cumm [facility] Comment:Testing performed by : [facility], [address] [place] [phone] Eosinophil abs 0.2 0.0 - 0.5 K/cumm [facility] Comment:Testing performed by : [facility], [address] [place] [phone] Basophil abs 0.2(H) 0.0 - 0.1 K/cumm [facility] Comment:Testing performed by : [facility], [address] [place] [phone] Neutrophil pct 71.0 % [facility] Comment: Interpretive Data Percent cell count reference ranges are not reported, since discordance with absolute values may lead to misinterpretation of CBC data. Current Interpretive Data was last revised on 2017. Testing performed by: [facility], [address] [place] [phone] Lymphocyte pct 13.0 % [facility] Comment: Interpretive Data Percent cell count reference ranges are not reported, since discordance with absolute values may lead to misinterpretation of CBC data. Current Interpretive Data was last revised on 2017. Testing performed by: [facility], [address] [place] [phone] Monocyte pct 9.0 % [facility] Comment: Interpretive Data Percent cell count reference ranges are not reported, since discordance with absolute values may lead to misinterpretation of CBC data. Current Interpretive Data was last revised on 2017. Testing performed by: [facility], [address] [place] [phone] Eosinophil pct 2.0 % [facility] Comment: Interpretive Data Percent cell count reference ranges are not reported, since discordance with absolute values may lead to misinterpretation of CBC data. Current Interpretive Data was last revised on 2017. Testing performed by: [facility], [address] [place] [phone] Basophil pct 2.0 % [facility] Comment: Interpretive Data Percent cell count reference ranges are not reported, since discordance with absolute values may lead to misinterpretation of CBC data. Current Interpretive Data was last revised on 2017. Testing performed by: [facility], [address] [place], [place] [id number] Metamyelocyte pct 2.0 % [facility] Comment:Testing performed by : [facility], [address] [place] [phone] Myelocyte pct 1.0 % [facility] Comment:Testing performed by : [facility], [address] [place], [place] [id number] Variant lymph pct 2.0 % [facility] Comment:Testing performed by : [facility], [address] [place] [phone] RBC morphology Normal [facility] Comment:Testing performed by : [facility], [address] [place], [place] [phone] Platelet estimate Adequate [facility] Comment:Testing performed by : [facility], [address] [place] [phone] Blood 06/17/2024 8:00 AM WATER SYSTEMS DESIGNER 06/17/2024 8:01 AM WATER SYSTEMS DESIGNER us Leola Alvarez HARDSCAPE FOREMAN LAB BLOOD ORDERABLES Final Result [facility] Department [place] [address] * (ABNORMAL) TSH (06/17/2024 8:00 AM WATER SYSTEMS DESIGNER) Thyroid Stimulating Hormone 4.52(H) 0.30 - 4.20 mcIUnit/mL Blood 06/17/2024 8:00 AM WATER SYSTEMS DESIGNER 06/17/2024 8:02 AM WATER SYSTEMS DESIGNER Leola Alvarez HARDSCAPE FOREMAN LAB BLOOD ORDERABLES Final Result Performing Organization Address City/[facility] Co de Phone Number [facility] [place] [address] * T4, free (06/17/2024 8:00 AM WATER SYSTEMS DESIGNER) [facility] Free T4 1.11 0.90 - 1.70 ng/dL Blood 06/17/2024 8:00 AM WATER SYSTEMS DESIGNER 06/17/2024 8:02 AM WATER SYSTEMS DESIGNER Leola Alvarez NP LAB BLOOD ORDERABLES Final Result Performing Organization Address [facility] Co de Phone Number [facility] [place] [address] * Magnesium (06/17/2024 8:00 AM WATER SYSTEMS DESIGNER) [facility] Magnesium 2.1 1.4 - 2.5 mg/dL Blood 06/17/2024 8:00 AM WATER SYSTEMS DESIGNER 06/17/2024 8:02 AM WATER SYSTEMS DESIGNER Leola Alvarez HARDSCAPE FOREMAN LAB BLOOD ORDERABLES Final Result Performing Organization Address [facility] [place] [address] * (ABNORMAL) Comprehensive metabolic panel (06/17/2024 8:00 AM WATER SYSTEMS DESIGNER) [facility] Sodium 137 135 - 145 mmol/L Potassium, pl 4.3 3.3 - 4.9 mmol/L [facility] Chloride 99 97 - 110 mmol/L [facility] CO2 29 22 - 32 mmol/L [facility] Anion gap 9 2 - 15 mmol/L [facility] BUN 17 6 - 25 mg/dL [facility] Creatinine 0.83 0.80 - 1.30 mg/dL [facility] Glucose 134 70 - 199 mg/dL [facility] Comment: Interpretive Data Fasting glucose >/= 126 mg/dl is diagnostic for diabetes. Fasting is defined as no caloric intake for at least 8 hours. Fasting glucose between 100 mg/dl to 125 mg/dl is diagnostic of prediabetes. In a patient with classic symptoms of hyperglycemia or hyperglycemic crisis, a random glucose >/= 200 mg/dl is diagnostic for diabetes. In the absence of unequivocal hyperglycemia, results should be confirmed by repeat testing. The classification and Diagnosis of Diabetes Diabetes Care 2021; 46: S19-S40. Current interpretive data was last revised 2022. Calcium 10.5(H) 8.5 - 10.3 mg/dL [facility] Bilirubin, total 0.2 0.1 - 1.2 mg/dL [facility] Protein, pl 7.7 6.5 - 8.5 g/dL [facility] Albumin 3.6 3.5 - 5.0 g/dL [facility] Alk phos 135(H) 40 - 130 Units/L [facility] ALT 31 7 - 55 Units/L [facility] AST 170(H) 10 - 50 Units/L [facility] Blood 06/17/2024 8:00 AM WATER SYSTEMS DESIGNER 06/17/2024 8:02 AM WATER SYSTEMS DESIGNER Leola Alvarez NP LAB BLOOD ORDERABLES Final Result [facility] Department [place] [address] * XR Chest 1 View (06/11/2024 2:31 PM WATER SYSTEMS DESIGNER) Anatomical Region Laterality Modality Body, Chest N/A Computed Radiogr aphy 06/11/2024 3:46 PM WATER SYSTEMS DESIGNER Impressions 06/11/2024 4:01 PM WATER SYSTEMS DESIGNER Comparison is made to chest radiograph dated 06/04/2024. Again seen moderate to large left pleural effusion. No right pleural effusion. No pneumothorax. The heart size and mediastinal contours are unchanged. Dictated by: Herberth Guerrero M.D. The radiology attending physician has personally reviewed this study, and had reviewed and/or edited this written report and agrees with it. Electronically signed by: Carol Lynne M.D. Narrative 06/11/2024 4:01 PM WATER SYSTEMS DESIGNER EXAMINATION: 1 view chest radiograph Procedure Note Carol Lynne MD - 06/11/2024 EXAMINATION: 1 view chest radiograph IMPRESSION: Comparison is made to chest radiograph dated 06/04/2024. Again seen moderate to large left pleural effusion. No right pleural effusion. No pneumothorax. The heart size and mediastinal contours are unchanged. Dictated by: Herberth Guerrero M.D. The radiology attending physician has personally reviewed this study, and had reviewed and/or edited this written report and agrees with it. Electronically signed by: Carol Lynne M.D. us Cecilia ESTES IMG XR PROCEDURES Final Res ult * US Guided Thoracentesis Left (06/11/2024 2:27 PM WATER SYSTEMS DESIGNER) Anatomical Region Laterality Modality Chest N/A Ultrasound 06/11/2024 3:33 PM WATER SYSTEMS DESIGNER Impressions 06/11/2024 3:33 PM WATER SYSTEMS DESIGNER 1. Successful ultrasound-guided therapeutic thoracentesis. The radiology attending physician has personally reviewed this study, and had reviewed and/or edited this written report and agrees with it. 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 COMPARISON: 06/04/2024 FINDINGS: Limited views of the posterior left chest show a large amount of pleural fluid. The left chest was marked appropriately with ultrasound guidance. TECHNIQUE: The procedure and its benefits and risks were explained to the patient. The potential risks included but were not limited to pneumothorax, bleeding, infection, and injury to adjacent organs. A site was localized for thoracentesis. The patient's overlying skin was prepped and draped in the usual sterile fashion. Local anesthesia was achieved via subcutaneous and deep administration with 10 mL of Lidocaine 1%. 5-Filipino One Step needle was advanced into the pleural cavity. Appropriate needle location was documented with continuous sonographic guidance. 1300 mL of clear straw-colored fluid were obtained. The patient's skin was cleaned and dressed. The patient tolerated the procedure well and was discharged in stable condition. The ultrasound obtained immediately following the procedure and the post procedure chest radiograph showed no pneumothorax. FRANKLYN Walls, was present from the beginning to the end of the procedure. FRANKLYN Walls performed the biopsy. Dr. Miguel Hernandez was present and participated in the procedure. Dr. Miguel Hernandez (residential carpenter) personally participated in sonographic imaging of this patient. 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 COMPARISON: 06/04/2024 FINDINGS: Limited views of the posterior left chest show a large amount of pleural fluid. The left chest was marked appropriately with ultrasound guidance. TECHNIQUE: The procedure and its benefits and risks were explained to the patient. The potential risks included but were not limited to pneumothorax, bleeding, infection, and injury to adjacent organs. A site was localized for thoracentesis. The patient's overlying skin was prepped and draped in the usual sterile fashion. Local anesthesia was achieved via subcutaneous and deep administration with 10 mL of Lidocaine 1%. 5-Filipino One Step needle was advanced into the pleural cavity. Appropriate needle location was documented with continuous sonographic guidance. 1300 mL of clear straw-colored fluid were obtained. The patient's skin was cleaned and dressed. The patient tolerated the procedure well and was discharged in stable condition. The ultrasound obtained immediately following the procedure and the post procedure chest radiograph showed no pneumothorax. FRANKLYN Walls, was present from the beginning to the end of the procedure. FRANKLYN Walls performed the biopsy. Dr. Miguel Hernandez was present and participated in the procedure. Dr. Miguel Hernandez (residential carpenter) personally participated in sonographic imaging of this patient. IMPRESSION: 1. Successful ultrasound-guided therapeutic thoracentesis. The radiology attending physician has personally reviewed this study, and had reviewed and/or edited this written report and agrees with it. Electronically signed by: FRANKLYN Walls us Abdiarshid Garcia MD IM US PROCEDURES Final Res ult * XR Chest 1 View (06/04/2024 2:44 PM WATER SYSTEMS DESIGNER) Anatomical Region Laterality Modality Body, Chest N/A Computed Radiogr aphy 06/04/2024 3:12 PM WATER SYSTEMS DESIGNER Impressions 06/04/2024 4:47 PM WATER SYSTEMS DESIGNER Comparison is made to chest radiograph of 05/28/2024. Interval slight decrease in size of a large left pleural effusion in this patient who is status post thoracentesis. Mild right basilar atelectasis. No pneumothorax. Cardiomediastinal silhouette is partially obscured, but unchanged. Unchanged focal expansion of the right 4th rib. Dictated by: Jerald Mcknight M.D. The radiology attending physician has personally reviewed this study, and had reviewed and/or edited this written report and agrees with it. Electronically signed by: Flaco Singh MD, PHD Narrative 06/04/2024 4:47 PM WATER SYSTEMS DESIGNER EXAMINATION: 1 view chest radiograph Procedure Note Flaco Singh MD PhD - 06/04/2024 EXAMINATION: 1 view chest radiograph IMPRESSION: Comparison is made to chest radiograph of 05/28/2024. Interval slight decrease in size of a large left pleural effusion in this patient who is status post thoracentesis. Mild right basilar atelectasis. No pneumothorax. Cardiomediastinal silhouette is partially obscured, but unchanged. Unchanged focal expansion of the right 4th rib. Dictated by: Jerald Mcknight M.D. The radiology attending physician has personally reviewed this study, and had reviewed and/or edited this written report and agrees with it. Electronically signed by: Flaco Singh MD, PHD Sherice ESTES IMG XR PROCEDURES Final Re sult * US Guided Thoracentesis Left (06/04/2024 2:42 PM WATER SYSTEMS DESIGNER) Anatomical Region Laterality Modality Chest N/A Ultrasound 06/04/2024 3:00 PM WATER SYSTEMS DESIGNER Impressions 06/04/2024 3:00 PM WATER SYSTEMS DESIGNER 1. Successful ultrasound-guided therapeutic thoracentesis. The radiology attending physician has personally reviewed this study, and had reviewed and/or edited this written report and agrees with it. 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 Recurrent left pleural effusion. COMPARISON: Chest radiograph 05/28/2024, ultrasound-guided thoracentesis 05/28/2024, CT 04/30/2024. FINDINGS: Limited views of the posterior left chest show a large amount of pleural fluid. The left chest was marked appropriately with ultrasound guidance. TECHNIQUE: The procedure and its benefits and risks were explained to the patient. The potential risks included but were not limited to pneumothorax, bleeding, infection, and injury to adjacent organs. A site was localized for thoracentesis. The patient's overlying skin was prepped and draped in the usual sterile fashion. Local anesthesia was achieved via subcutaneous and deep administration with 18 mL of Lidocaine 1%. 5-Filipino One Step needle was advanced into the pleural cavity. Appropriate needle location was documented with continuous sonographic guidance. 1200 mL of clear yellow fluid were obtained. The patient's skin was cleaned and dressed. The patient tolerated the procedure well and was discharged in stable condition. The ultrasound obtained immediately following the procedure and the post procedure chest radiograph showed no pneumothorax. Sherice Aguilera PA-C, was present from the beginning to the end of the procedure. Sherice Aguilera PA-C performed the thoracentesis. Dr. Jc Grace (residential carpenter) was present and participated in the procedure. 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 Recurrent left pleural effusion. COMPARISON: Chest radiograph 05/28/2024, ultrasound-guided thoracentesis 05/28/2024, CT 04/30/2024. FINDINGS: Limited views of the posterior left chest show a large amount of pleural fluid. The left chest was marked appropriately with ultrasound guidance. TECHNIQUE: The procedure and its benefits and risks were explained to the patient. The potential risks included but were not limited to pneumothorax, bleeding, infection, and injury to adjacent organs. A site was localized for thoracentesis. The patient's overlying skin was prepped and draped in the usual sterile fashion. Local anesthesia was achieved via subcutaneous and deep administration with 18 mL of Lidocaine 1%. 5-Filipino One Step needle was advanced into the pleural cavity. Appropriate needle location was documented with continuous sonographic guidance. 1200 mL of clear yellow fluid were obtained. The patient's skin was cleaned and dressed. The patient tolerated the procedure well and was discharged in stable condition. The ultrasound obtained immediately following the procedure and the post procedure chest radiograph showed no pneumothorax. Sherice Aguilera PA-C, was present from the beginning to the end of the procedure. Sherice Aguilera PA-C performed the thoracentesis. Dr. cJ Grace (residential carpenter) was present and participated in the procedure. IMPRESSION: 1. Successful ultrasound-guided therapeutic thoracentesis. The radiology attending physician has personally reviewed this study, and had reviewed and/or edited this written report and agrees with it. Electronically signed by: Sherice Aguilera PA-C us Abdirashid Garcia MD [facility] Final Res ult * XR Chest 1 View (05/28/2024 2:41 PM WATER SYSTEMS DESIGNER) Anatomical Region Laterality Modality Body, Chest N/A Computed Radiogr aphy 05/28/2024 3:00 PM WATER SYSTEMS DESIGNER Impressions 05/28/2024 4:53 PM WATER SYSTEMS DESIGNER Comparison is made to radiograph dated 05/17/2024. Unchanged moderate to large left pleural effusion with associated left lung atelectasis. Right lung is clear. No pneumothorax. Cardiac silhouette is obscured. Dictated by: Jada Felix M.D. The radiology attending physician has personally reviewed this study, and had reviewed and/or edited this written report and agrees with it. Electronically signed by: Carol Lynne M.D. Narrative 05/28/2024 4:53 PM WATER SYSTEMS DESIGNER EXAMINATION: 1 view chest radiograph Procedure Note Carol Lynne MD - 05/28/2024 EXAMINATION: 1 view chest radiograph IMPRESSION: Comparison is made to radiograph dated 05/17/2024. Unchanged moderate to large left pleural effusion with associated left lung atelectasis. Right lung is clear. No pneumothorax. Cardiac silhouette is obscured. Dictated by: Jada Felix M.D. The radiology attending physician has personally reviewed this study, and had reviewed and/or edited this written report and agrees with it. Electronically signed by: Carol Lynne M.D. us Meron Holcomb MD IMG XR PROCEDURES Final Result * US Guided Thoracentesis Left (05/28/2024 2:37 PM WATER SYSTEMS DESIGNER) Anatomical Region Laterality Modality Chest N/A Ultrasound 05/28/2024 2:56 PM WATER SYSTEMS DESIGNER Impressions 05/28/2024 2:56 PM WATER SYSTEMS DESIGNER 1. Successful ultrasound-guided therapeutic thoracentesis. Electronically signed by: FRANKLYN Walls Narrative 05/28/2024 2:56 PM WATER SYSTEMS DESIGNER EXAMINATION: THERAPEUTIC THORACENTESIS HISTORY: 59-year-old man with recurrent pleural effusion in the setting of p16+ squamous cell carcinoma of the tonsil. COMPARISON: None FINDINGS: Limited views of the posterior left chest show a large amount of pleural fluid. The left chest was marked appropriately with ultrasound guidance. TECHNIQUE: The procedure and its benefits and risks were explained to the patient. The potential risks included but were not limited to pneumothorax, bleeding, infection, and injury to adjacent organs. A site was localized for thoracentesis. The patient's overlying skin was prepped and draped in the usual sterile fashion. Local anesthesia was achieved via subcutaneous and deep administration with 6 mL of Lidocaine 1%. 5-Filipino One Step needle was advanced into the pleural cavity. Appropriate needle location was documented with continuous sonographic guidance. 1400 mL of clear yellowish fluid were obtained. The patient's skin was cleaned and dressed. The patient tolerated the procedure well and was discharged in stable condition. The ultrasound obtained immediately following the procedure and the post procedure chest radiograph showed no pneumothorax. FRANKLYN Walls, was present from the beginning to the end of the procedure. Cecilia ESTES performed the thoracentesis. Dr. Meron Holcomb (residential carpenter) was present and participated in the procedure. Procedure Note Cecilia Noble PA - 05/28/2024 EXAMINATION: THERAPEUTIC THORACENTESIS HISTORY: 59-year-old man with recurrent pleural effusion in the setting of p16+ squamous cell carcinoma of the tonsil. COMPARISON: None FINDINGS: Limited views of the posterior left chest show a large amount of pleural fluid. The left chest was marked appropriately with ultrasound guidance. TECHNIQUE: The procedure and its benefits and risks were explained to the patient. The potential risks included but were not limited to pneumothorax, bleeding, infection, and injury to adjacent organs. A site was localized for thoracentesis. The patient's overlying skin was prepped and draped in the usual sterile fashion. Local anesthesia was achieved via subcutaneous and deep administration with 6 mL of Lidocaine 1%. 5-Filipino One Step needle was advanced into the pleural cavity. Appropriate needle location was documented with continuous sonographic guidance. 1400 mL of clear yellowish fluid were obtained. The patient's skin was cleaned and dressed. The patient tolerated the procedure well and was discharged in stable condition. The ultrasound obtained immediately following the procedure and the post procedure chest radiograph showed no pneumothorax. FRANKLYN Walls, was present from the beginning to the end of the procedure. Cecilia ESTES performed the thoracentesis. Dr. Meron Holcomb (residential carpenter) was present and participated in the procedure. IMPRESSION: 1. Successful ultrasound-guided therapeutic thoracentesis. Electronically signed by: FRANKLYN Walls us Abdirashid Garcia MD [facility] [place] Final Res ult * Protein / creatinine ratio, urine, random (05/27/2024 7:59 AM WATER SYSTEMS DESIGNER) Protein, ur, quant 28.7 mg/dL Comment: Interpretive Data No reference range established. Current interpretive data was last revised 2018. Creatinine Ur 246.5 mg/dL [facility] Comment: Interpretive Data No reference range established. Current interpretive data was last revised 2018. Protein/creatinin e ratio 116.4 0.0 - 180.0 mg/g CR [facility] Urine 05/27/2024 7:59 AM WATER SYSTEMS DESIGNER 05/27/2024 8:34 AM WATER SYSTEMS DESIGNER us Abdirashid Garcia MD LAB URINE ORDERABLES Final Result [facility] Department [place] [address] * eGFR (05/27/2024 7:45 AM WATER SYSTEMS DESIGNER) Pathologist [facility] eGFR >90 >=60 mL/min/1. 73 m2 Comment: Interpretive Data Reference Interval Normal >/= 90 mL/min/1.73m2 Mildly decreased* 60 - 89 mL/min/1.73m2 Mildly to moderately decreased 45 - 59 mL/min/1.73m2 Moderately to severely decreased 30 - 44 mL/min/1.73m2 Severely decreased 15 - 29 mL/min/1.73m2 Kidney Failure < 15 mL/min/1.73m2 *Relative to young adult level Estimated glomerular filtration rate is determined by the 2020 CKD-EPI equation recommended by the National Kidney Foundation (A Unifying Approach to GFR Estimation: Recommendations of the NKF-ASK Task Force on Reassessing the Inclusion of Race in Diagnosing Kidney Disease, JASN 2020). The CKD-EPI equation should not be used for patients with unstable renal function and has not been validated in children and those over 70. Current interpretive data was last reviewed 2021. Blood 05/27/2024 7:45 AM WATER SYSTEMS DESIGNER 05/27/2024 7:51 AM WATER SYSTEMS DESIGNER us Abdirashid Garcia MD LAB BLOOD ORDERABLES Final Result [facility] Department [place] [address] * (ABNORMAL) CBC with auto differential (05/27/2024 7:45 AM WATER SYSTEMS DESIGNER) WBC 8.2 3.8 - 9.9 K/cumm Comment:Testing performed by : [facility], [address] [place] [address] Hgb 13.5 13.0 - 17.5 g/dL CINTHIA ZIEGLER Comment:Testing performed by : [facility], [address] [place] [address] Hct 39.5 38.9 - 50.3 % CERLINDA ZIEGLER Comment:Testing performed by : [facility], [address] [place] [address] Plt 328 150 - 400 K/cumm CINTHIA ZIEGLER Comment:Testing performed by : [facility], [address] [place] [address] MPV 6.2(L) 6.8 - 10.[address] [facility] Comment:Testing performed by : [facility], [address] [place] [address] RBC 4.63 4.30 - 5.80 M/cumm CINTHIA ZIEGLER Comment:Testing performed by : [facility], [address] [place] [address] MCV 85.3 81.3 - 96.[address] [facility] Comment:Testing performed by : [facility], [address] [place] [address] MCH 29.1 27.1 - 33.3 pg CERLINDA ZIEGLER Comment:Testing performed by : [facility], [address] [place] [address] MCHC 34.1 32.3 - 35.7 g/dL CINTHIA BJ Comment:Testing performed by : [facility], [address] [place] [address] RDW CV 16.2(H) 11.1 - 14.9 % CINTHIA ZIEGLER Comment:Testing performed by : [facility], [address] [place] [address] NRBC abs 0.00 0.00 - 0.01 K/cumm CERLINDA BJ Comment:Testing performed by : [facility], [address] [place] [address] Blood 05/27/2024 7:45 AM WATER SYSTEMS DESIGNER 05/27/2024 7:48 AM WATER SYSTEMS DESIGNER us Abdirashid Garcia MD LAB BLOOD ORDERABLES Edited Result - Final CINTHIA ZIEGLER [facility] Department [place] [address] * (ABNORMAL) Manual Differential (05/27/2024 7:45 AM WATER SYSTEMS DESIGNER) Cells Counted 200 Comment:Testing performed by : [facility], [address] [place] [address] Neutrophil abs 5.9 1.5 - 6.5 K/cumm CERLINDA BJ Comment:Testing performed by : [facility], [address] [place] [address] Lymphocyte abs 0.7(L) 0.8 - 3.3 K/cumm CERLINDA BJ Comment:Testing performed by : [facility], [address] [place] [address] Monocyte abs 0.9(H) 0.2 - 0.8 K/cumm CERLINDA BJ Comment:Testing performed by : [facility], [address] [place] [address] Eosinophil abs 0.4 0.0 - 0.5 K/cumm CERLINDA BJ Comment:Testing performed by : [facility], [address] [place] [address] Basophil abs 0.1 0.0 - 0.1 K/cumm CINTHIA BJ Comment:Testing performed by : [facility], [address] [place] [phone] Neutrophil pct 72.0 % [facility] Comment: Interpretive Data Percent cell count reference ranges are not reported, since discordance with absolute values may lead to misinterpretation of CBC data. Current Interpretive Data was last revised on 2017. Testing performed by: [facility], [address] [place] [phone] Lymphocyte pct 9.0 % [facility] Comment: Interpretive Data Percent cell count reference ranges are not reported, since discordance with absolute values may lead to misinterpretation of CBC data. Current Interpretive Data was last revised on 2017. Testing performed by: [facility], [address] [place] [phone] Monocyte pct 11.0 % [facility] Comment: Interpretive Data Percent cell count reference ranges are not reported, since discordance with absolute values may lead to misinterpretation of CBC data. Current Interpretive Data was last revised on 2017. Testing performed by: [facility], [address] [place] [phone] Eosinophil pct 5.0 % [facility] Comment: Interpretive Data Percent cell count reference ranges are not reported, since discordance with absolute values may lead to misinterpretation of CBC data. Current Interpretive Data was last revised on 2017. Testing performed by: [facility], [address] [place] [phone] Basophil pct 1.0 % [facility] Comment: Interpretive Data Percent cell count reference ranges are not reported, since discordance with absolute values may lead to misinterpretation of CBC data. Current Interpretive Data was last revised on 2017. Testing performed by: [facility], [address] [place] [phone] Metamyelocyte pct 1.0 % [facility] Comment:Testing performed by : [facility], [address] [place] [phone] Variant lymph pct 4.0 % [facility] Comment:Testing performed by : [facility], [address] [place] [phone] Smudge cells, qual Present(A) CINTHIA ZIEGLER Comment:Testing performed by : [facility], [address] [place] [phone] Polychromasia 1+(A) CINTHIA ZIEGLER Comment:Testing performed by : [facility], [address] [place] [phone] Hypochromasia 1+(A) CINTHIA ZIEGLER Comment:Testing performed by : [facility], [address] [place], [place] [phone] Anisocytosis 1+(A) CINTHIA ZIEGLER Comment:Testing performed by : [facility], [address] [place] [phone] Poikilocytosis 1+(A) CINTHIA ZIEGLER Comment:Testing performed by : [facility], [address] [place] [phone] Microcytes 1+(A) CINTHIA ZIEGLER Comment:Testing performed by : [facility], [address] [place] [phone] Macrocytes 1+(A) CINTHIA ZIEGLER Comment:Testing performed by : [facility], [address] [place] [phone] Elliptocytes 1+(A) [facility] Comment:Testing performed by : [facility], [address] [place] [phone] Platelet estimate Adequate [facility] Comment:Testing performed by : [facility], [address] [place] [phone] Blood 05/27/2024 7:45 AM WATER SYSTEMS DESIGNER 05/27/2024 7:48 AM WATER SYSTEMS DESIGNER us Abdirashid Garcia MD LAB BLOOD ORDERABLES Final Result CINTHIA ZIEGLER [facility] Department [place] [address] * TSH (05/27/2024 7:45 AM WATER SYSTEMS DESIGNER) Thyroid Stimulating Hormone 4.04 0.30 - 4.20 mcIUnit/mL Blood 05/27/2024 7:45 AM WATER SYSTEMS DESIGNER 05/27/2024 7:51 AM WATER SYSTEMS DESIGNER Abdirashid Garcia MD LAB BLOOD ORDERABLES Final Result Performing Organization Address [facility] de Phone Number [facility] [place] [place] [address] * T4, free (05/27/2024 7:45 AM WATER SYSTEMS DESIGNER) [facility] Free T4 1.13 0.90 - 1.70 ng/dL Blood 05/27/2024 7:45 AM WATER SYSTEMS DESIGNER 05/27/2024 7:51 AM WATER SYSTEMS DESIGNER Abdirashid Garcia MD LAB BLOOD ORDERABLES Final Result Performing Organization Address [facility] Phone Number [facility] [place] [address] * Magnesium (05/27/2024 7:45 AM WATER SYSTEMS DESIGNER) [facility] Magnesium 2.1 1.4 - 2.5 mg/dL Blood 05/27/2024 7:45 AM WATER SYSTEMS DESIGNER 05/27/2024 7:51 AM WATER SYSTEMS DESIGNER Abdirashid Garcia MD LAB BLOOD ORDERABLES Final Result Performing Organization Address [facility] [place] [address] * (ABNORMAL) Comprehensive metabolic panel (05/27/2024 7:45 AM WATER SYSTEMS DESIGNER) [facility] Sodium 137 135 - 145 mmol/L Potassium, pl 4.2 3.3 - 4.9 mmol/L [facility] Chloride 100 97 - 110 mmol/L [facility] CO2 29 22 - 32 mmol/L [facility] Anion gap 8 2 - 15 mmol/L [facility] BUN 19 6 - 25 mg/dL [facility] Creatinine 0.86 0.80 - 1.30 mg/dL [facility] Glucose 133 70 - 199 mg/dL [facility] Comment: Interpretive Data Fasting glucose >/= 126 mg/dl is diagnostic for diabetes. Fasting is defined as no caloric intake for at least 8 hours. Fasting glucose between 100 mg/dl to 125 mg/dl is diagnostic of prediabetes. In a patient with classic symptoms of hyperglycemia or hyperglycemic crisis, a random glucose >/= 200 mg/dl is diagnostic for diabetes. In the absence of unequivocal hyperglycemia, results should be confirmed by repeat testing. The classification and Diagnosis of Diabetes Diabetes Care 2021; 46: S19-S40. Current interpretive data was last revised 2022. Calcium 10.3 8.5 - 10.3 mg/dL [facility] Bilirubin, total 0.2 0.1 - 1.2 mg/dL [facility] Protein, pl 8.1 6.5 - 8.5 g/dL [facility] Albumin 3.9 3.5 - 5.0 g/dL [facility] Alk phos 133(H) 40 - 130 Units/L [facility] ALT 30 7 - 55 Units/L [facility] AST 172(H) 10 - 50 Units/L [facility] Blood 05/27/2024 7:45 AM WATER SYSTEMS DESIGNER 05/27/2024 7:51 AM WATER SYSTEMS DESIGNER us Abdirashid Garcia MD LAB BLOOD ORDERABLES Final Result Performing Organization Address City/State/[facility] Co de Phone Number [facility] Department [place] [address] * XR Chest 1 View (05/17/2024 8:51 AM WATER SYSTEMS DESIGNER) Anatomical Region Laterality Modality Body, Chest N/A Computed Radiogr aphy 05/17/2024 8:56 AM WATER SYSTEMS DESIGNER Impressions 05/17/2024 8:56 AM WATER SYSTEMS DESIGNER The current study is compared with the prior radiograph dated 05/04/2024. Again seen is a large to moderate left effusion. There is no pneumothorax. No right effusion. Healed fracture deformity of the right 5th rib noted the cardiac silhouette is largely obscured. Overall there is no interval change. Electronically signed by: Carol Lynne M.D. Narrative 05/17/2024 8:56 AM WATER SYSTEMS DESIGNER EXAMINATION: 1 view chest radiograph Procedure Note Carol Lynne MD - 05/17/2024 EXAMINATION: 1 view chest radiograph IMPRESSION: The current study is compared with the prior radiograph dated 05/04/2024. Again seen is a large to moderate left effusion. There is no pneumothorax. No right effusion. Healed fracture deformity of the right 5th rib noted the cardiac silhouette is largely obscured. Overall there is no interval change. Electronically signed by: Carol Lynne M.D. Cecilia ESTES IMG XR PROCEDURES Final Res ult * US Guided Thoracentesis Left (05/17/2024 8:50 AM WATER SYSTEMS DESIGNER) Anatomical Region Laterality Modality Chest N/A Ultrasound 05/17/2024 9:39 AM WATER SYSTEMS DESIGNER Impressions 05/17/2024 9:39 AM WATER SYSTEMS DESIGNER 1. Successful ultrasound-guided therapeutic left thoracentesis. The radiology attending physician has personally reviewed this study, and had reviewed and/or edited this written report and agrees with it. 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 COMPARISON: 05/04/2024 FINDINGS: Limited views of the posterior left chest show a large amount of pleural fluid. The left chest was marked appropriately with ultrasound guidance. TECHNIQUE: The procedure and its benefits and risks were explained to the patient. The potential risks included but were not limited to pneumothorax, bleeding, infection, and injury to adjacent organs. A site was localized for thoracentesis. The patient's overlying skin was prepped and draped in the usual sterile fashion. Local anesthesia was achieved via subcutaneous and deep administration with 16 mL of Lidocaine 1%. 5-Filipino One Step needle was advanced into the pleural cavity. Appropriate needle location was documented with continuous sonographic guidance. 1200 mL of clear yellow fluid were obtained. The patient's skin was cleaned and dressed. The patient tolerated the procedure well and was discharged in stable condition. The ultrasound obtained immediately following the procedure and the post procedure chest radiograph showed no pneumothorax. FRANKLYN Walls, the physician assistant food service director was present from the beginning to the end of the procedure and performed the procedure. Dr. Bautista (residential carpenter) was present and participated in the procedure. 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 COMPARISON: 05/04/2024 FINDINGS: Limited views of the posterior left chest show a large amount of pleural fluid. The left chest was marked appropriately with ultrasound guidance. TECHNIQUE: The procedure and its benefits and risks were explained to the patient. The potential risks included but were not limited to pneumothorax, bleeding, infection, and injury to adjacent organs. A site was localized for thoracentesis. The patient's overlying skin was prepped and draped in the usual sterile fashion. Local anesthesia was achieved via subcutaneous and deep administration with 16 mL of Lidocaine 1%. 5-Filipino One Step needle was advanced into the pleural cavity. Appropriate needle location was documented with continuous sonographic guidance. 1200 mL of clear yellow fluid were obtained. The patient's skin was cleaned and dressed. The patient tolerated the procedure well and was discharged in stable condition. The ultrasound obtained immediately following the procedure and the post procedure chest radiograph showed no pneumothorax. FRANKLYN Walls, the physician assistant food service director was present from the beginning to the end of the procedure and performed the procedure. Dr. Bautista (residential carpenter) was present and participated in the procedure. IMPRESSION: 1. Successful ultrasound-guided therapeutic left thoracentesis. The radiology attending physician has personally reviewed this study, and had reviewed and/or edited this written report and agrees with it. Electronically signed by: FRANKLYN Walls us Abdirashid Garcia MD [facility] PROCEDURES Final Res ult from Last 3 Months Insurance [employer] [place] [address] [address] Charge Payment [place] Advance Directives For more information, please contact: [phone] * Full Code (Latest Code Status on File) Date Activated Date Inactivated Comments 08/05/2024 7:17 AM 08/06/2024 4:52 AM Care Teams Glass Vial Filler Relationship Specialty Start Date End Date Vivek Hernandez MD [address] [facility] [place] [address] PCP - General 06/05/20 Akhil Nelson II, MD [address] [place] [address] Surgeon Otolaryngology 03/05/21 Melodie Trimble MD [address] [place] [address] Radiation Oncologist Radiation Oncology 03/05/21 Shaggy Perea MD [address] [facility] [address] IM [place] [address] Consulting Physician Medical Oncology 10/28/23 Abdirashid Garcia MD [address] [place] [address] [address] [place] [address] Medical Oncologist/Housekeeping Coordinator Medical Oncology 12/04/23
--- OUTSIDE RECORDS SUMMARY | 2024-08-07 22:41 | XMS_ITS | Clinical Summary ---
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) Take by mouth Active escitalopram (LEXAPRO) 10 mg tablet Take 1 tablet (10 mg total) by mouth daily 024 Active oxyCODONE (ROXICODONE) 5 mg immediate release tabletIndicat ions:Pain Take 1 tablet (5 mg total) by mouth every 4 (four) hours as needed for pain 180 tablet Active albuterol HFA (PROVENTIL HFA,VENTOLIN HFA,PROAIR HFA) 90 mcg/actuation inhaler Active tobramycin-de xAMETHasone (TOBRADEX) ophthalmic solution Administer [...] Signed by Adriel Dodge MD on 06/23/2018 Encounters Date Type Department Care Team Description 08/05/2024 12:30 PM CDT Infusion [facility] - Infusion [address] [facility] Floor 6 [place] [address] 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); Head and neck cancer (HCC); Malignant neoplasm of tonsil (HCC) 08/05/2024 10:30 AM CDT Office Visit [facility] [address] [place] [address] Floor 5 [place] [phone] Abdirashid Garcia MD Tonsil cancer (HCC) (Primary Dx); 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); Head and neck cancer (HCC) Discharge Disposition: Discharge to home or self care 08/05/2024 Documentation [facility] 1 [place] [address] 08/04/2024 11:27 AM CDT - 08/04/2024 11:59 PM CDT Hospital Encounter [facility] [address] [place] [address] Arrived Discharge Disposition: Discharge to home or self care 08/04/2024 10:38 AM CDT - 08/04/2024 11:59 PM CDT Hospital Encounter [facility] ([facility]) [address] [place] [address] Pleural effusion, not elsewhere classified Discharge Disposition: Discharge to home or self care 08/03/[address] [facility] [address] [place] [phone] Arti Santiago 08/02/2024 Telephone [facility] [address] [place] [address] Arti Swanson RN 08/02/[address] [facility] [address] [place] [phone] Arti Santiago 07/30/2024 3:05 PM CDT - 07/30/2024 11:59 PM CDT Hospital Encounter [facility] ([facility]) [address] [place] [address] Discharge Disposition: Discharge to home or self care 07/30/2024 1:31 PM CDT - 07/30/2024 11:59 PM CDT Hospital Encounter [facility] ([facility]) [address] [place] [address] Pleural effusion, not elsewhere classified Discharge Disposition: Discharge to home or self care 07/29/2024 10:00 AM CDT Office Visit [facility] [address] [place] [address] Floor 5 [place] [address] Leola Alvarez NP Tonsil cancer (HCC) (Primary Dx); 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); Head and neck cancer (HCC); Malignant neoplasm of tonsil (HCC) 07/29/2024 9:00 AM CDT Lab [facility] - Lab Collection [address] [facility] Floor 5 [place] [address] Head and neck cancer (HCC) 07/27/2024 7:18 AM CDT - 07/27/2024 11:59 PM CDT Hospital Encounter [facility] ([facility]) [address] [place] [address] Abdirashid Garcia MD Tonsil cancer (HCC); 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); Malignant neoplasm of tonsil (HCC) Discharge Disposition: Discharge to home or self care 07/23/2024 2:38 PM CDT - 07/23/2024 11:59 PM CDT Hospital Encounter [facility] ([facility]) [address] [place] [address] Discharge Disposition: Discharge to home or self care 07/23/2024 1:28 PM CDT - 07/23/2024 11:59 PM CDT Hospital Encounter [facility] ([facility]) [address] [place] [address] Pleural effusion, not elsewhere classified Discharge Disposition: Discharge to home or self care 07/16/2024 Telephone [facility] [address] [place] [address] Kaykay Moreno RN [facility] 07/14/2024 Telephone [facility] [address] [place] [address] Kaykay Moreno, LAURA [facility] 07/13/2024 3:18 PM CDT - 07/13/2024 11:59 PM CDT Hospital Encounter [facility] ([facility]) [address] [place] [address] Discharge Disposition: Discharge to home or self care 07/13/2024 2:05 PM CDT - 07/13/2024 11:59 PM CDT Hospital Encounter [facility] ([facility]) [address] [place] [address] Tonsil cancer (HCC); Head and neck cancer (HCC) Discharge Disposition: Discharge to home or self care 07/08/2024 9:30 AM CDT Infusion [facility] - [facility]fusion [address] [facility] Floor 5 [place] [address] Head and neck cancer (HCC) (Primary Dx); Tonsil cancer (HCC); 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) 07/08/2024 8:30 AM CDT Office Visit [facility] [address] [place] [address] Floor 5 [place] [address] Abdirashid Garcia MD Tonsil cancer (HCC) (Primary Dx); 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); Malignant neoplasm of tonsil (HCC); Head and neck cancer (HCC) 07/08/2024 7:30 AM CDT Lab [facility] - Lab Collection [address] [facility] Floor 5 [place] [address] Head and neck cancer (HCC) 07/08/2024 Documentation [facility] 1 [place] [address] 07/07/2024 Telephone [facility] [address] [place] [address] Afshan Hurst, LAURA 07/06/2024 7:05 PM CDT Lab [facility] [address] [place] [phone] Head and neck cancer (HCC) 07/06/2024 2:45 PM CDT - 07/06/2024 11:59 PM CDT Hospital Encounter [facility]) [address] [place] [address] Discharge Disposition: Discharge to home or self care 07/06/2024 1:20 PM CDT - 07/06/2024 11:59 PM CDT Hospital Encounter [facility] [address] [place] [address] Pleural effusion, not elsewhere classified; Head and neck cancer (HCC) Discharge Disposition: Discharge to home or self care 07/06/2024 Telephone [facility] [address] [place] [address] Kaykay Moreno, LAURA 07/05/2024 Orders Only [facility] [address] [place] [address] Afshan Hurst, LAURA Tonsil cancer (HCC) (Primary Dx); Head and neck cancer (HCC) 06/29/2024 Telephone [facility] [address] [place] [phone] Kaykay Moreno RN 06/22/2024 11:19 AM STEM ASSEMBLER - 06/22/2024 11:59 PM STEM ASSEMBLER Hospital Encounter [facility] [address] [place] [address] Discharge Disposition: Discharge to home or self care 06/22/2024 10:12 AM STEM ASSEMBLER - 06/22/2024 11:59 PM STEM ASSEMBLER Hospital Encounter [facility] [address] [place] [address] Pleural effusion, not elsewhere classified; Tonsillar cancer (HCC); Head and neck cancer (HCC); Tonsil cancer (HCC) Discharge Disposition: Discharge to home or self care 06/17/2024 9:30 AM STEM ASSEMBLER Infusion [facility] [address] [place] [address] Floor 5 [place] [address] Head and neck cancer (HCC) (Primary Dx) 06/17/2024 8:30 AM STEM ASSEMBLER Office Visit [facility] [address] [place] [address] 5 [place] [address] Abdirashid Garcia MD Head and neck cancer (HCC) (Primary Dx) 06/17/2024 7:30 AM STEM ASSEMBLER Lab [facility] - Lab Collection [address] [facility] Floor 5 [place] [address] Head and neck cancer (HCC) 06/11/2024 2:25 PM STEM ASSEMBLER - 06/11/2024 11:59 PM STEM ASSEMBLER Hospital Encounter [facility] [address] [place] [address] Discharge Disposition: Discharge to home or self care 06/11/2024 1:35 PM STEM ASSEMBLER - 06/11/2024 11:59 PM STEM ASSEMBLER Hospital Encounter [facility] [address] [place] [address] Tonsil cancer (HCC) Discharge Disposition: Discharge to home or self care 06/04/2024 2:38 PM STEM ASSEMBLER - 06/04/2024 11:59 PM STEM ASSEMBLER Hospital Encounter [facility] [address] [place] [address] Discharge Disposition: Discharge to home or self care 06/04/2024 1:35 PM STEM ASSEMBLER - 06/04/2024 11:59 PM STEM ASSEMBLER Hospital Encounter [facility] [address] [place] [address] Tonsil cancer (HCC) Discharge Disposition: Discharge to home or self care 05/28/2024 2:35 PM STEM ASSEMBLER - 05/28/2024 11:59 PM STEM ASSEMBLER Hospital Encounter [facility] [address] [place] [address] Discharge Disposition: Discharge to home or self care 05/28/2024 1:26 PM STEM ASSEMBLER - 05/28/2024 11:59 PM STEM ASSEMBLER Hospital Encounter [facility] [address] [place] [address] Pleural effusion, not elsewhere classified; Tonsil cancer (HCC) Discharge Disposition: Discharge to home or self care 05/27/2024 9:30 AM STEM ASSEMBLER Infusion [facility] - Infusion [address] [facility] [address] 5 [place] [address] Head and neck cancer (HCC) (Primary Dx) 05/27/2024 8:30 AM STEM ASSEMBLER Office Visit [facility] [address] [facility] Floor 5 [place] [phone] Abdirashid Garcia MD Head and neck cancer (HCC) (Primary Dx); Tonsil cancer (HCC) 05/27/2024 7:30 AM STEM ASSEMBLER Lab [facility] - Lab Collection [address] [facility] Floor 5 [place] [address] Head and neck cancer (HCC) 05/27/2024 Telephone [facility] [address] [place] [address] Kaykay Moreno, LAURA 05/24/2024 Telephone [facility] [address] [place] [address] Kaykay Moreno, LAURA 05/17/2024 8:43 AM STEM ASSEMBLER - 05/17/2024 11:59 PM STEM ASSEMBLER Hospital Encounter [facility]) [address] [place] [address] Discharge Disposition: Discharge to home or self care 05/17/2024 7:42 AM STEM ASSEMBLER - 05/17/2024 11:59 PM STEM ASSEMBLER Hospital Encounter [facility] [address] [place] [address] Tonsil cancer (HCC) Discharge Disposition: Discharge to home or self care 05/12/2024 Orders Only [facility] [address] [place] [phone] Alfonso Dalton Tonsil cancer (HCC) (Primary Dx) from Last 3 Months Immunizations Immunization Administration Dates Next Due COVID-19 mRNA (HunterOn) 0.3 m L (30 mcg) vaccine (12 years and up) 03/13/2024 Influenza, Quadrivalent, Spl it, Intramuscular 03/12/2019,03/17/2018,02/12/2017 Influenza, Quadrivalent, Spl it, Preservative Free, Intramuscular 02/09/2021,01/18/2020 Influenza, Trivalent, IM (MDV) 03/03/2014,2012 Influenza, Unspecified 03/13/2024,03/23/2018 Tdap 02/12/2017 ZOSTER Recombinant 04/13/2021,02/09/2021 Surgical History Surgery Date Site/Laterality Comments COLONOSCOPY NECK LESION BIOPSY 06/03/2018 Left ultrasound guided FNA SUPERFICIAL BONE BIOPSY 11/28/2023 N/A US GUIDED THORACENTESIS 02/24/2024 N/A US GUIDED THORACENTESIS 04/01/2024 N/A US GUIDED THORACENTESIS 04/14/2024 N/A US GUIDED THORACENTESIS 04/27/2024 N/A US GUIDED THORACENTESIS 05/04/2024 N/A US GUIDED THORACENTESIS 05/17/2024 N/A US GUIDED THORACENTESIS 05/28/2024 N/A US GUIDED THORACENTESIS 06/04/2024 N/A US GUIDED THORACENTESIS 06/11/2024 N/A US GUIDED THORACENTESIS 06/22/2024 N/A US GUIDED THORACENTESIS 07/06/2024 N/A US GUIDED THORACENTESIS 07/13/2024 N/A US GUIDED THORACENTESIS 07/23/2024 N/A US GUIDED THORACENTESIS 07/30/2024 N/A US GUIDED THORACENTESIS 08/04/2024 N/A PORT PLACEMENT CHEST >5 YEARS 08/05/2024 N/A Medical History Medical History Date Comments Tonsil cancer (HCC) Deviated nasal septum GERD (gastroesophageal reflux disease) Neck mass Depression Anxiety Metastasis to bone (HCC) Eczema Renal stone OA (osteoarthritis) Pleural effusion Family History Medical History Relation Name Comments Heart disease Father Lung cancer Father Relation Name Status Comments Father (Age 78) 78 when di agnosed Maternal Grandfather Maternal Grandmother Mother Paternal Grandfather Paternal Grandmother Social History Tobacco Use Types Packs/Day Years Used Date Smoking Tobacco: Former Cigarettes 1 10 1 5 - 1994 Passive Smoke Exposure: Never Smokeless [...] on file Legal Sex Male 7:19 PM STEM ASSEMBLER Gender Identity Not on file Sexual Orientation Not on file Obstetrics History Last Filed Vital Signs Vital Sign Reading [...] 08/05/2024 1:09 PM CDT Plan of Treatment Health Maintenance Due Date Last Done Comments Colon Cancer Screening-Colonoscopy 1965 Depression Screening 1965 Hepatitis C Screening 1965 Prostate Cancer Screening-PSA 1964 Hepatitis B Screening 01/22/1982 Regular Well Visit/Exam 18-64 01/22/1982 Pneumococcal vaccine <65 (1 of 2 - PCV) 01/22/1983 Covid-19 Vaccine (5 - Pfizer risk 2023- season) 2024 03/13/2024, 04/05/2021, 07/19/2020, Additional history exists DTaP/Tdap/Td Vaccine (2 - Td or Tdap) 02/12/2027 02/12/2017 Zoster Vaccine Completed 04/13/2021, 02/09/2021 Influenza Vaccine Completed 03/13/2024, , 01/18/2020, Additional history exists Medical Devices Implanted Type Area Planner Intern Device Identifier Shelf Expiration Date Model / Serial / Lot Pac Right: Chest [employer] Excela Low Porfile Power Port 8fr 1.6mm 1 Lumen [id number] - [id number] Implanted:Qty: 1 on 08/05/2024 at [facility] [employer] 02/28/2029 [id number] / / [id number] Procedures Procedure Name Priority Date/Time Associated Diagnosis [...] Read Routine (OP Routine) 06/22/2024 11:33 AM STEM ASSEMBLER Pleural effusion, not elsewhere classified Tonsillar cancer (HCC) Head and neck cancer (HCC) Tonsil cancer (HCC) XR CHEST 1 VIEW IP Routine 06/22/2024 11:27 AM STEM ASSEMBLER PROTEIN / CREATININE RATIO, URINE, RANDOM STAT 06/17/2024 8:13 AM STEM ASSEMBLER Head and neck cancer (HCC) EGFR STAT 06/17/2024 8:00 AM STEM ASSEMBLER Head and neck cancer (HCC) MANUAL DIFFERENTIAL Routine 06/17/2024 8 :00 AM STEM ASSEMBLER Head and neck cancer (HCC) COMPREHENSIVE METABOLIC PANEL STAT 06/17/2024 8:00 AM STEM ASSEMBLER Head and neck cancer (HCC) CBC WITH AUTO DIFFERENTIAL Routine 06/17/2024 8:00 AM STEM ASSEMBLER Head and neck cancer (HCC) MAGNESIUM Routine 06/17/2024 8:00 AM STEM ASSEMBLER Head and neck cancer (HCC) TSH Routine 06/17/2024 8:00 AM STEM ASSEMBLER Head and neck cancer (HCC) T4, FREE Routine 06/17/2024 8:00 AM STEM ASSEMBLER Head and neck cancer (HCC) XR CHEST 1 VIEW ED Urgent/IP Urgent 06/11/2024 2:31 PM STEM ASSEMBLER US GUIDED THORACENTESIS LEFT Schedule Routine, Read Routine (OP Routine) 06/11/2024 2:27 PM STEM ASSEMBLER Tonsil cancer (HCC) XR CHEST 1 VIEW IP Routine 06/04/2024 2:44 PM STEM ASSEMBLER US GUIDED THORACENTESIS LEFT Schedule Routine, Read Routine (OP Routine) 06/04/2024 2:42 PM STEM ASSEMBLER Tonsil cancer (HCC) XR CHEST 1 VIEW IP Routine 05/28/2024 2:41 PM STEM ASSEMBLER US GUIDED THORACENTESIS LEFT Schedule Routine, Read Routine (OP Routine) 05/28/2024 2:37 PM STEM ASSEMBLER Pleural effusion, not elsewhere classified Tonsil cancer (HCC) PROTEIN / CREATININE RATIO, URINE, RANDOM STAT 05/27/2024 7:59 AM STEM ASSEMBLER Head and neck cancer (HCC) EGFR STAT 05/27/2024 7:45 AM STEM ASSEMBLER Head and neck cancer (HCC) MANUAL DIFFERENTIAL Routine 05/27/2024 7 :45 AM STEM ASSEMBLER Head and neck cancer (HCC) COMPREHENSIVE METABOLIC PANEL STAT 05/27/2024 7:45 AM STEM ASSEMBLER Head and neck cancer (HCC) CBC WITH AUTO DIFFERENTIAL Routine 05/27/2024 7:45 AM STEM ASSEMBLER Head and neck cancer (HCC) MAGNESIUM Routine 05/27/2024 7:45 AM STEM ASSEMBLER Head and neck cancer (HCC) TSH Routine 05/27/2024 7:45 AM STEM ASSEMBLER Head and neck cancer (HCC) T4, FREE Routine 05/27/2024 7:45 AM STEM ASSEMBLER Head and neck cancer (HCC) XR CHEST 1 VIEW IP Routine 05/17/2024 8:51 AM STEM ASSEMBLER US GUIDED THORACENTESIS LEFT Schedule Routine, Read Routine (OP Routine) 05/17/2024 8:50 AM STEM ASSEMBLER Tonsil cancer (HCC) from Last 3 Months [...] CDT 08/05/2024 10:18 AM CDT us Leola Voth Slane [employer] [facility] LAB BLOOD ORDERABLES Final Result [facility] [place] [address] * (ABNORMAL) CBC with auto differential (08/05/2024 10:09 AM CDT) WBC 8.01 3.80 - 9.90 K/cumm Comment:Testing performed by : [facility], [address] [place] [address] Hgb 10.5(L) 13.0 - 17.5 g/dL CERLINDA ZIEGLER Comment:Testing performed by : [facility], [address] [place] [address] Hct 31.2(L) 38.9 - 50.3 % CERLINDA ZIEGLER Comment:Testing performed by : [facility], [address] [place] [address] Plt 256 150 - 400 K/cumm CERLINDA BJ Comment:Testing performed by : [facility], [address] [place] [address] MPV 6.2(L) 6.8 - 10.4 fL CERLINDA BJ Comment:Testing performed by : [facility], [address] [place] [address] RBC 3.60(L) 4.30 - 5.80 M/cumm CERLINDA BJ Comment:Testing performed by : [facility], [address] [place] [address] MCV 86.9 81.3 - 96.4 fL CERLINDA BJ Comment:Testing performed by : [facility], [address] [place] [address] MCH 29.2 27.1 - 33.3 pg CERLINDA BJ Comment:Testing performed by : [facility], [address] [place] [address] MCHC 33.6 32.3 - 35.7 g/dL CERLINDA BJ Comment:Testing performed by : [facility], [address] [place] [address] RDW CV 20.4(H) 11.1 - 14.9 % CINTHIA ZIEGLER Comment:Testing performed by : [facility], [address] [place] [address] NRBC abs 0.00 0.00 - 0.01 K/cumm CINTHIA ZIEGLER Comment:Testing performed by : [facility], [address] [place] [address] Blood 08/05/2024 10:0 9 AM CDT 08/05/2024 10:25 AM CDT Leola Alvarez NP LAB BLOOD ORDERABLES Final Result [facility]THIA [facility] [place] [address] * (ABNORMAL) Manual Differential (08/05/2024 10:09 AM CDT) Cells Counted 200 Comment:Testing performed by : [facility], [address] [place] [address] Neutrophil abs 5.93 1.50 - 6.50 K/cumm CINTHIA ZIEGLER Comment:Testing performed by : [facility], [address] [place] [address] Lymphocyte abs 1.04 0.80 - 3.30 K/cumm CINTHIA ZIEGLER Comment:Testing performed by : [facility], [address] [place] [address] Monocyte abs 0.80 0.20 - 0.80 K/cumm CINTHIA ZIEGLER Comment:Testing performed by : [facility], [address] [place] [address] Eosinophil abs 0.08 0.00 - 0.50 K/cumm CINTHIA BJ Comment:Testing performed by : [facility], [address] [place] [address] Basophil abs 0.08 0.00 - 0.10 K/cumm [facility]ER [facility] Comment:Testing performed by : [facility], [address] [place] [phone] Neutrophil pct 74.0 % [facility] Comment: Interpretive Data Percent cell count reference ranges are not reported, since discordance with absolute values may lead to misinterpretation of CBC data. Current Interpretive Data was last revised on 2017. Testing performed by: [facility], [address] [place] [phone] Lymphocyte pct 13.0 % [facility] Comment: Interpretive Data Percent cell count reference ranges are not reported, since discordance with absolute values may lead to misinterpretation of CBC data. Current Interpretive Data was last revised on 2017. Testing performed by: [facility], [address] [place] [phone] Monocyte pct 10.0 % [facility] Comment: Interpretive Data Percent cell count reference ranges are not reported, since discordance with absolute values may lead to misinterpretation of CBC data. Current Interpretive Data was last revised on 2017. Testing performed by: [facility], [address] [place] [phone] Eosinophil pct 1.0 % [facility] Comment: Interpretive Data Percent cell count reference ranges are not reported, since discordance with absolute values may lead to misinterpretation of CBC data. Current Interpretive Data was last revised on 2017. Testing performed by: [facility], [address] [place] [phone] Basophil pct 1.0 % [facility] Comment: Interpretive Data Percent cell count reference ranges are not reported, since discordance with absolute values may lead to misinterpretation of CBC data. Current Interpretive Data was last revised on 2017. Testing performed by: [facility], [address] [place] [phone] Metamyelocyte pct 1.0(H) 0.0 - 0.0 % [facility] Comment:Testing performed by : [facility], [address] [place] [phone] Myelocyte pct 1.0(H) 0.0 - 0.0 % [facility] Comment:Testing performed by : [facility], [address] [place], [place] [id number] Variant lymph pct 1.0(H) 0.0 - 0.0 % CINTHIA BJ Comment:Testing performed by : [facility], [address] [place] [phone] RBC morphology NRBCs present(A) CINTHIA BJ Comment:Testing performed by : [facility], [address] [place], [place] [id number] Polychromasia 1+(A) CERLINDA BJ Comment:Testing performed by : [facility], [address] [address] [place], [place] [id number] Anisocytosis 1+(A) [facility] Comment:Testing performed by : [facility], [address] [place], [place] [phone] Poikilocytosis 1+(A) [facility]IA [facility] Comment:Testing performed by : [facility], [address] [place] [address] Microcytes 1+(A) [facility] Comment:Testing performed by : [facility], [address] [place], [place] [phone] Macrocytes 1+(A) [facility] Comment:Testing performed by : [facility], [address] [place], [place] [phone] Elliptocytes 1+(A) [facility]IN[facility]IA [facility] Comment:Testing performed by : [facility], [address] [place], [place] [phone] Platelet estimate Adequate [facility] Comment:Testing performed by : [facility], [address] [place] [address] Giant platelets Present(A) [facility]IN[facility]IA [facility] Comment:Testing performed by : [facility], [address] [place], [place] [phone] Blood 08/05/2024 10:0 9 AM CDT 08/05/2024 10:25 AM CDT Leola Alvarez NP LAB BLOOD ORDERABLES Final Result [facility] [place] [address] * (ABNORMAL) Comprehensive metabolic panel (08/05/2024 10:09 AM CDT) Sodium 135 135 - 145 mmol/L Potassium, pl 4.3 3.3 - 4.9 mmol/L [facility] Chloride 100 97 - 110 mmol/L [facility] CO2 22 22 - 32 mmol/L [facility] Anion gap 13 2 - 15 mmol/L [facility] BUN 17 6 - 25 mg/dL [facility] Creatinine 0.71(L) 0.80 - 1.30 mg/dL [facility] Glucose 116 70 - 199 mg/dL [facility] Comment: Interpretive Data Fasting glucose >/= 126 [...] 2022. Calcium 9.9 8.5 - 10.3 mg/dL [facility] Bilirubin, total 0.3 0.1 - 1.2 mg/dL [facility] Protein, pl 7.0 6.5 - 8.5 g/dL [facility] Albumin 3.5 3.5 - 5.0 g/dL [facility] Alk phos 137(H) 40 - 130 Units/L [facility] ALT 19 7 - 55 Units/L [facility] AST 182(H) 10 - 50 Units/L [facility] Blood 08/05/2024 10:0 9 AM CDT 08/05/2024 10:18 AM CDT us Leola Irasema Slane [employer] LAB BLOOD ORDERABLES Final Result [facility] [place] [address] * IR Port Placement Chest > 5 Years (08/05/2024 9:15 AM CDT) Anatomical Region Laterality Modality Chest N/A Radio Fluoroscop y 08/05/2024 10:2 7 AM CDT Impressions 08/05/2024 10:27 AM CDT Successful chest wall port placement. PLAN: The catheter is ready for immediate use. Please note that a power injectable port was placed. When treatment is completed, removal can be scheduled by calling [facility] - [phone] [facility] - [phone] Electronically signed by: Mark Serna PA-C Narrative [...] was obtained. Prior to beginning the procedure, [place] Protocol was used to confirm the patient's [...] was obtained. Prior to beginning the procedure, [place] Protocol was used to confirm the patient's [...] completed, removal can be scheduled by calling [facility] - [phone] [facility] - [phone] Electronically signed by: Mark Serna PA-C Leola [...] by: Naseem Alamo M.D. us Sherice ESTES IMToshia XR PROCEDURES Final Re sult * US [...] administration with 9 mL of Lidocaine 1%. 5-Moldovan One Step needle was advanced into the [...] no pneumothorax. Sherice Aguilera PA-C, the Physician Risk Management Consultant, was present from the beginning to the end of the procedure. Sherice ESTES performed the thoracentesis. Dr. Bridgette Pena (hvac technician residential) was present and participated in the procedure. [...] administration with 9 mL of Lidocaine 1%. 5-Moldovan One Step needle was advanced into the [...] no pneumothorax. Sherice Aguilera PA-C, the Physician Risk Management Consultant, was present from the beginning to the end of the procedure. Sherice ESTES performed the thoracentesis. Dr. Bridgette Pena (hvac technician residential) was present and participated in the procedure. IMPRESSION: 1. Successful ultrasound-guided therapeutic thoracentesis. Electronically signed by: Sherice Aguilera PA-C us Abdirashid Garcia MD IMG US PROCEDURES [...] administration with 8 mL of Lidocaine 1%. 5-Moldovan One Step needle was advanced into the [...] administration with 8 mL of Lidocaine 1%. 5-Moldovan One Step needle was advanced into the [...] it. Electronically signed by: Antonio Deluca M.D. us Abdirashid Garcia MD IMG US PROCEDURES Final Res ult * Protein / creatinine ratio, urine, random (07/29/2024 9:34 AM CDT) Protein, ur, quant 36.4 mg/dL Comment: Interpretive Data No reference range established. Current interpretive data was last revised 2018. Creatinine Ur 272.1 mg/dL [facility] Comment: Interpretive Data No reference range established. Current interpretive data was last revised 2018. Protein/creatinin e ratio 133.8 0.0 - 180.0 mg/g CR [facility] Urine 07/29/2024 9:34 AM CDT 07/29/2024 9:52 AM CDT us Leola Alvarez NP LAB URINE ORDERABLES Final Result [facility] [place] [address] * eGFR (07/29/2024 9:04 AM CDT) [facility] eGFR >90 >=60 mL/min/1. 73 m2 Comment: [...] CDT 07/29/2024 9:09 AM CDT Leola Alvarez [employer] LAB BLOOD ORDERABLES Final Result [facility] [place] [address] * (ABNORMAL) CBC with auto differential (07/29/2024 9:04 AM CDT) [facility] WBC 9.02 3.80 - 9.90 K/cumm Comment:Testing performed by : [facility], [address] [place] [phone] Hgb 10.8(L) 13.0 - 17.5 g/dL [facility]IA [facility] Comment:Testing performed by : [facility], [address] [place] [phone] Hct 32.8(L) 38.9 - 50.3 % [facility]IA [facility] Comment:Testing performed by : [facility], [address] [place] [address] Plt 275 150 - 400 K/cumm [facility]DA [facility] Comment:Testing performed by : [facility], [address] [place] [address] MPV 5.9(L) 6.8 - 10.4 fL [facility] Comment:Testing performed by : [facility], [address] [place] [address] RBC 3.80(L) 4.30 - 5.80 M/cumm [facility] Comment:Testing performed by : [facility], [address] [place] [address] MCV 86.5 81.3 - 96.4 fL [facility] Comment:Testing performed by : [facility], [address] [place] [address] MCH 28.5 27.1 - 33.3 pg [facility] Comment:Testing performed by : [facility], [address] [place] [address] MCHC 33.0 32.3 - 35.7 g/dL [facility] Comment:Testing performed by : [facility], [address] [place] [address] RDW CV 19.7(H) 11.1 - 14.9 % [facility] Comment:Testing performed by : [facility], [address] [place] [address] NRBC abs 0.10(H) 0.00 - 0.01 K/cumm [facility] Comment:Testing performed by : [facility], [address] [place] [address] Blood 07/29/2024 9:04 AM CDT 07/29/2024 9:07 AM CDT Leola Alvarez [employer] LAB BLOOD ORDERABLES Edited Result - Final [facility] [place] [address] * (ABNORMAL) Manual Differential (07/29/2024 9:04 AM CDT) Cells Counted 198 Comment:Testing performed by : [facility], [address] [place], [place] [phone] Neutrophil abs 6.77(H) 1.50 - 6.50 K/cumm [facility]ER [facility] Comment:Testing performed by : [facility], [address] [place], [place] [phone] Lymphocyte abs 0.63(L) 0.80 - 3.30 K/cumm [facility]ER [facility] Comment:Testing performed by : [facility], [address] [place], [place] [phone] Monocyte abs 1.17(H) 0.20 - 0.80 K/cumm [facility]ER [facility] Comment:Testing performed by : [facility], [address] [place] [phone] Eosinophil abs 0.09 0.00 - 0.50 K/cumm [facility]ER [facility] Comment:Testing performed by : [facility], [address] [place], [place] [phone] Basophil abs 0.09 0.00 - 0.10 K/cumm [facility]ER [facility] Comment:Testing performed by : [facility], [address] [place], [place] [phone] Neutrophil pct 75.0 % [facility] Comment: Interpretive Data Percent cell count reference ranges are not reported, since discordance with absolute values may lead to misinterpretation of CBC data. Current Interpretive Data was last revised on 2017. Testing performed by: [facility], [address] [place], [place] [phone] Lymphocyte pct 7.0 % [facility] Comment: Interpretive Data Percent cell count reference ranges are not reported, since discordance with absolute values may lead to misinterpretation of CBC data. Current Interpretive Data was last revised on 2017. Testing performed by: [facility], [address], [place] [address] Monocyte pct 13.0 % [facility] Comment: Interpretive Data Percent cell count reference ranges are not reported, since discordance with absolute values may lead to misinterpretation of CBC data. Current Interpretive Data was last revised on 2017. Testing performed by: [facility], [address] [place], [place] [phone] Eosinophil pct 1.0 % [facility] Comment: Interpretive Data Percent cell count reference ranges are not reported, since discordance with absolute values may lead to misinterpretation of CBC data. Current Interpretive Data was last revised on 2017. Testing performed by: [facility], [address] [place] [address] Basophil pct 1.0 % [facility] Comment: Interpretive Data Percent cell count reference ranges are not reported, since discordance with absolute values may lead to misinterpretation of CBC data. Current Interpretive Data was last revised on 2017. Testing performed by: [facility], [address] [place] [phone] Metamyelocyte pct 3.0(H) 0.0 - 0.0 % [facility]ER [facility] Comment:Testing performed by : [facility], [address] [place], [place] [phone] Variant lymph pct 1.0(H) 0.0 - 0.0 % [facility]ER [facility] Comment:Testing performed by : [facility], [address] [place] [phone] RBC morphology NRBCs present(A) [facility]ER [facility] Comment:Testing performed by : [facility], [address] [place], [place] [phone] Polychromasia 1+(A) [facility] Comment:Testing performed by : [facility], [address] [place] [phone] Anisocytosis 1+(A) [facility] Comment:Testing performed by : [facility], [address] [place] [phone] Poikilocytosis 1+(A) [facility] Comment:Testing performed by : [facility], [address] [place] [phone] Microcytes 2+(A) [facility] Comment:Testing performed by : [facility], [address] [place] [phone] Elliptocytes 1+(A) [facility] Comment:Testing performed by : [facility], [address] [place] [phone] Platelet estimate Adequate [facility] Comment:Testing performed by : [facility], [address] [place] [phone] Blood 07/29/2024 9:04 AM CDT 07/29/2024 9:07 AM CDT Leola Alvarez NP LAB BLOOD ORDERABLES Final Result Performing Organization Address City/[facility]/ZIP Co de Phone Number [facility] [place] [address] * (ABNORMAL) TSH (07/29/2024 9:04 AM CDT) Thyroid Stimulating Hormone 7.49(H) 0.30 - 4.20 mcIUnit/mL Blood 07/29/2024 9:04 AM CDT 07/29/2024 9:09 AM CDT Leola Alvarez NP LAB BLOOD ORDERABLES Final Result [facility] [place] [address] * T4, free (07/29/2024 9:04 AM CDT) Free T4 1.05 0.90 - 1.70 ng/dL Blood 07/29/2024 9:04 AM CDT 07/29/2024 9:09 AM CDT Leola Alvarez [employer] LAB BLOOD ORDERABLES Final Result [facility] [place] [address] * Magnesium (07/29/2024 9:04 AM CDT) [facility] Magnesium 2.2 1.4 - 2.5 mg/dL Blood 07/29/2024 9:04 AM CDT 07/29/2024 9:09 AM CDT Leola Alvarez [employer] LAB BLOOD ORDERABLES Final Result Performing Organization Address City/[facility] Co de Phone Number [facility] [place] [address] * (ABNORMAL) Comprehensive metabolic panel (07/29/2024 9:04 AM CDT) [facility] Sodium 139 135 - 145 mmol/L Potassium, pl 4.5 3.3 - 4.9 mmol/L [facility] Chloride 101 97 - 110 mmol/L [facility] CO2 25 22 - 32 mmol/L [facility] Anion gap 13 2 - 15 mmol/L [facility] BUN 18 6 - 25 mg/dL [facility] Creatinine 0.78(L) 0.80 - 1.30 mg/dL [facility] Glucose 102 70 - 199 mg/dL [facility] Comment: Interpretive Data Fasting glucose >/= 126 [...] 2022. Calcium 10.2 8.5 - 10.3 mg/dL [facility] Bilirubin, total 0.2 0.1 - 1.2 mg/dL [facility] Protein, pl 7.6 6.5 - 8.5 g/dL [facility] Albumin 3.8 3.5 - 5.0 g/dL [facility] Alk phos 143(H) 40 - 130 Units/L [facility] ALT 18 7 - 55 Units/L [facility] AST 188(H) 10 - 50 Units/L [facility] Blood 07/29/2024 9:04 AM CDT 07/29/2024 9:09 AM CDT us Leola Alvarez NP LAB BLOOD ORDERABLES Final Result [facility] [place] [address] * CT Chest Abdomen Pelvis W Contrast [...] frontal lobe, left middle cranial fossa, left tape folding machine operator space. Similar mass effect on the adjacent left frontal lobe cerebral sulci with adjacent edema, not significantly changed from prior. Consider a contrast-enhanced MR brain for extent of intracranial invasion, as clinically indicated. 2. Mildly increasing size/extension into the left orbit superolateral extraconal space and left tape folding machine operator space. Increasing left strap muscle invasion, compatible [...] CT chest for chest findings. Dictated by: Mdady Lundberg MD The radiology attending physician has [...] lobe, left middle cranial fossa and left tape folding machine operator space. There is minimal increasing size of the extension into the left orbit superior and lateral extraconal space with involvement of the left lateral rectus muscle. There is also minimal increasing size of the extension into the left tape folding machine operator space. There is again overlying left temporal [...] lobe, left middle cranial fossa and left tape folding machine operator space. There is minimal increasing size of the extension into the left orbit superior and lateral extraconal space with involvement of the left lateral rectus muscle. There is also minimal increasing size of the extension into the left tape folding machine operator space. There is again overlying left temporal [...] frontal lobe, left middle cranial fossa, left tape folding machine operator space. Similar mass effect on the adjacent left frontal lobe cerebral sulci with adjacent edema, not significantly changed from prior. Consider a contrast-enhanced MR brain for extent of intracranial invasion, as clinically indicated. 2. Mildly increasing size/extension into the left orbit superolateral extraconal space and left tape folding machine operator space. Increasing left strap muscle invasion, compatible [...] frontal lobe, left middle cranial fossa, left tape folding machine operator space. Similar mass effect on the adjacent left frontal lobe cerebral sulci with adjacent edema, not significantly changed from prior. Consider a contrast-enhanced MR brain for extent of intracranial invasion, as clinically indicated. 2. Mildly increasing size/extension into the left orbit superolateral extraconal space and left tape folding machine operator space. Increasing left strap muscle invasion, compatible [...] lobe, left middle cranial fossa and left tape folding machine operator space. There is minimal increasing size of the extension into the left orbit superior and lateral extraconal space with involvement of the left lateral rectus muscle. There is also minimal increasing size of the extension into the left tape folding machine operator space. There is again overlying left temporal [...] lobe, left middle cranial fossa and left tape folding machine operator space. There is minimal increasing size of the extension into the left orbit superior and lateral extraconal space with involvement of the left lateral rectus muscle. There is also minimal increasing size of the extension into the left tape folding machine operator space. There is again overlying left temporal [...] frontal lobe, left middle cranial fossa, left tape folding machine operator space. Similar mass effect on the adjacent left frontal lobe cerebral sulci with adjacent edema, not significantly changed from prior. Consider a contrast-enhanced MR brain for extent of intracranial invasion, as clinically indicated. 2. Mildly increasing size/extension into the left orbit superolateral extraconal space and left tape folding machine operator space. Increasing left strap muscle invasion, compatible [...] it. Electronically signed by: Ladan Pike M.D. us Abdirashid Garcia MD IMG CT PROCEDURES Final [...] administration with 6 mL of Lidocaine 1%. 5-Moldovan One Step needle was advanced into the [...] performed the thoracentesis. Dr. Janie Ramirez MD (hvac technician residential) personally participated in sonographic imaging of this [...] administration with 6 mL of Lidocaine 1%. 5-Moldovan One Step needle was advanced into the [...] performed the thoracentesis. Dr. Janie Ramirez MD (hvac technician residential) personally participated in sonographic imaging of this patient. IMPRESSION: Successful ultrasound-guided therapeutic left thoracentesis. Dictated by: Janie Ramirez MD The radiology attending physician has personally reviewed this study, and had reviewed and/or edited this written report and agrees with it. Electronically signed by: Jammie Blount M.D. Abdirashid Garcia MD IM US PROCEDURES Final [...] Patrice Mcdowell M.D. Dez Le II, MD IM XR PROCEDURES F inal Result * US [...] administration with 10 mL of Lidocaine 1%. 5-Moldovan One Step needle was advanced into the [...] administration with 10 mL of Lidocaine 1%. 5-Moldovan One Step needle was advanced into the [...] by: Dez Le M.D. Abdirashid Garcia MD [facility] [place] PROCEDURES Final Res ult * Protein / creatinine ratio, urine, random (07/08/2024 7:59 AM CDT) Protein, ur, quant 27.3 mg/dL Comment: Interpretive Data No reference range established. Current interpretive data was last revised 2018. Creatinine Ur 220.1 mg/dL [facility] Comment: Interpretive Data No reference range established. Current interpretive data was last revised 2018. Protein/creatinin e ratio 124.0 0.0 - 180.0 mg/g CR [facility] Urine 07/08/2024 7:59 AM CDT 07/08/2024 8:38 AM CDT Abdirashid Garcia MD LAB URINE ORDERABLES Final Result Performing Organization Address [facility] Co de Phone Number [facility]THIA [facility] [place] [address] * eGFR (07/08/2024 7:38 AM CDT) eGFR >90 >=60 mL/min/1. 73 [...] BLOOD ORDERABLES Final Result Performing Organization Address City/[facility] Co de Phone Number [facility] [place] [address] * (ABNORMAL) CBC with auto differential (07/08/2024 7:38 AM CDT) WBC 8.1 3.8 - 9.9 K/cumm Comment:Testing performed by : [facility], [address] [place] [phone] Hgb 12.4(L) 13.0 - 17.5 g/dL [facility] Comment:Testing performed by : [facility], [address] [place], [place] [phone] Hct 36.7(L) 38.9 - 50.3 % [facility] Comment:Testing performed by : [facility], [address] [place], [place] [phone] Plt 288 150 - 400 K/cumm [facility] Comment:Testing performed by : [facility], [address] [place], [place] [phone] MPV 6.0(L) 6.8 - 10.4 fL [facility] Comment:Testing performed by : [facility], [address] [place], [place] [phone] RBC 4.31 4.30 - 5.80 M/cumm [facility] Comment:Testing performed by : [facility], [address] [place], [place] [phone] MCV 85.1 81.3 - 96.4 fL [facility] Comment:Testing performed by : [facility], [address] [place] [address] MCH 28.8 27.1 - 33.3 pg [facility] Comment:Testing performed by : [facility], [address] [place], [place] [phone] MCHC 33.8 32.3 - 35.7 g/dL [facility] Comment:Testing performed by : [facility], [address] [place], [place] [phone] RDW CV 18.2(H) 11.1 - 14.9 % [facility] Comment:Testing performed by : [facility], [address] [place], [place] [phone] NRBC abs 0.00 0.00 - 0.01 K/cumm [facility] Comment:Testing performed by : [facility], [address] [place] [address] Blood 07/08/2024 7:38 AM CDT 07/08/2024 7:41 AM CDT us Abdirashid Garcia MD LAB BLOOD ORDERABLES Edited Result - Final [facility] [place] [address] * (ABNORMAL) Manual Differential (07/08/2024 7:38 AM CDT) Cells Counted 100 Comment:Testing performed by : [facility], [address] [place], [place] [phone] Neutrophil abs 6.0 1.5 - 6.5 K/cumm [facility] Comment:Testing performed by : [facility], [address] [place] [phone] Lymphocyte abs 0.4(L) 0.8 - 3.3 K/cumm [facility] Comment:Testing performed by : [facility], [address] [place], [place] [phone] Monocyte abs 1.1(H) 0.2 - 0.8 K/cumm [facility] Comment:Testing performed by : [facility], [address] [place] [phone] Eosinophil abs 0.1 0.0 - 0.5 K/cumm [facility] Comment:Testing performed by : [facility], [address] [place] [phone] Basophil abs 0.2(H) 0.0 - 0.1 K/cumm [facility] Comment:Testing performed by : [facility], [address] [place] [phone] Neutrophil pct 74.0 % [facility] Comment: Interpretive Data Percent cell count reference ranges are not reported, since discordance with absolute values may lead to misinterpretation of CBC data. Current Interpretive Data was last revised on 2017. Testing performed by: [facility], [address] [place] [phone] Lymphocyte pct 5.0 % [facility] Comment: Interpretive Data Percent cell count reference ranges are not reported, since discordance with absolute values may lead to misinterpretation of CBC data. Current Interpretive Data was last revised on 2017. Testing performed by: [facility], [address] [place] [phone] Monocyte pct 14.0 % [facility] Comment: Interpretive Data Percent cell count reference ranges are not reported, since discordance with absolute values may lead to misinterpretation of CBC data. Current Interpretive Data was last revised on 2017. Testing performed by: [facility] [facility], [address] [place], [place] [address] Eosinophil pct 1.0 % [facility] Comment: Interpretive Data Percent cell count reference ranges are not reported, since discordance with absolute values may lead to misinterpretation of CBC data. Current Interpretive Data was last revised on 2017. Testing performed by: [facility], [address] [place] [address] Basophil pct 2.0 % [facility] Comment: Interpretive Data Percent cell count reference ranges are not reported, since discordance with absolute values may lead to misinterpretation of CBC data. Current Interpretive Data was last revised on 2017. Testing performed by: [facility], [address] [place] [phone] Metamyelocyte pct 4.0(H) 0.0 - 0.0 % [facility] Comment:Testing performed by : [facility], [address] [place] [phone] Polychromasia 1+(A) [facility] Comment:Testing performed by : [facility], [address] [place] [phone] Hypochromasia 1+(A) [facility] Comment:Testing performed by : [facility], [address] [place] [phone] Anisocytosis 1+(A) [facility] Comment:Testing performed by : [facility], [address] [place] [phone] Poikilocytosis 1+(A) [facility] Comment:Testing performed by : [facility], [address] [place] [phone] Microcytes 1+(A) [facility] Comment:Testing performed by : [facility], [address] [place] [phone] Macrocytes 1+(A) [facility] Comment:Testing performed by : [facility], [address] [place] [phone] Elliptocytes 1+(A) [facility] Comment:Testing performed by : [facility], [address] [place] [phone] Platelet estimate Adequate [facility] Comment:Testing performed by : [facility], [address] [place] [phone] Blood 07/08/2024 7:38 AM CDT 07/08/2024 7:41 AM CDT Abdirashid Garcia MD LAB BLOOD ORDERABLES Final Result Performing Organization Address City/[facility]/ZIP Co de Phone Number [facility] [place] [address] * (ABNORMAL) TSH (07/08/2024 7:38 AM CDT) Thyroid Stimulating Hormone 5.26(H) 0.30 - 4.20 mcIUnit/mL Blood 07/08/2024 7:38 AM CDT 07/08/2024 7:42 AM CDT Abdirashid Garcia MD LAB BLOOD ORDERABLES Final Result [facility] [place] [address] * T4, free (07/08/2024 7:38 AM CDT) Free T4 1.21 0.90 - 1.70 ng/dL Blood 07/08/2024 7:38 AM CDT 07/08/2024 7:42 AM CDT Abdirashid Garcia MD LAB BLOOD ORDERABLES Final Result Performing Organization Address City/[facility]/ZIP Co de Phone Number [facility] [place] [address] * Magnesium (07/08/2024 7:38 AM CDT) [facility] Magnesium 2.1 1.4 - 2.5 mg/dL Blood 07/08/2024 7:38 AM CDT 07/08/2024 7:42 AM CDT Abdirashid Garcia MD LAB BLOOD ORDERABLES Final Result Performing Organization Address [facility] de Phone Number [facility] [place] [address] * (ABNORMAL) Comprehensive metabolic panel (07/08/2024 7:38 AM CDT) [facility] Sodium 137 135 - 145 mmol/L Potassium, pl 4.4 3.3 - 4.9 mmol/L [facility] Chloride 99 97 - 110 mmol/L [facility] CO2 25 22 - 32 mmol/L [facility] Anion gap 13 2 - 15 mmol/L [facility] BUN 20 6 - 25 mg/dL [facility] Creatinine 0.84 0.80 - 1.30 mg/dL [facility] Glucose 131 70 - 199 mg/dL [facility] Comment: Interpretive Data Fasting glucose >/= 126 [...] 2022. Calcium 10.6(H) 8.5 - 10.3 mg/dL [facility] Bilirubin, total 0.3 0.1 - 1.2 mg/dL [facility] Protein, pl 7.8 6.5 - 8.5 g/dL [facility] Albumin 3.9 3.5 - 5.0 g/dL [facility] Alk phos 142(H) 40 - 130 Units/L [facility] ALT 19 7 - 55 Units/L [facility] AST 196(H) 10 - 50 Units/L [facility] Blood 07/08/2024 7:38 AM CDT 07/08/2024 7:42 AM CDT us Abdirashid Garcia MD LAB BLOOD ORDERABLES Final Result [facility] [place] [address] * eGFR (07/06/2024 3:44 PM CDT) eGFR See Comment >=60 Comment: Credited, collection error. Deleted at the Request of Afshan Armendariz [facility] on 07/07/2024 12:36 by tp/dga . Interpretive Data Reference Interval Normal >/= [...] of Race in Diagnosing Kidney Disease, JASN 202). The CKD-EPI equation should not be used for patients with unstable renal function and has not been validated in children and those over 70. Current interpretive data was last reviewed 2021. Blood 07/06/2024 3:44 PM CDT 07/06/2024 4:07 PM CDT us Abdirashid Garcia MD LAB BLOOD ORDERABLES Edited Result - Final [facility] [place] [address] * (ABNORMAL) Differential, auto (07/06/2024 3:44 PM CDT) Neutrophil abs 5.8 1.5 - 6.5 K/cumm Imm gran abs 0.4(H) 0.0 - 0.1 K/cumm [facility] Lymphocyte abs 0.9 0.8 - 3.3 K/cumm [facility] Monocyte abs 1.3(H) 0.2 - 0.8 K/cumm [facility] Eosinophil abs 0.1 0.0 - 0.5 K/cumm [facility] Basophil abs 0.1 0.0 - 0.1 K/cumm [facility] Neutrophil pct 68.0 % [facility] Comment: Interpretive Data Percent cell count reference ranges are not reported, since discordance with absolute values may lead to misinterpretation of CBC data. Current Interpretive Data was last revised on 2017. Imm gran pct 4.1 % [facility] Comment: Interpretive Data Percent cell count reference ranges are not reported, since discordance with absolute values may lead to misinterpretation of CBC data. Current Interpretive Data was last revised on 2017. Lymphocyte pct 10.8 % [facility] Comment: Interpretive Data Percent cell count reference ranges are not reported, since discordance with absolute values may lead to misinterpretation of CBC data. Current Interpretive Data was last revised on 2017. Monocyte pct 15.2 % [facility] Comment: Interpretive Data Percent cell count reference ranges are not reported, since discordance with absolute values may lead to misinterpretation of CBC data. Current Interpretive Data was last revised on 2017. Eosinophil pct 1.2 % [facility] Comment: Interpretive Data Percent cell count reference ranges are not reported, since discordance with absolute values may lead to misinterpretation of CBC data. Current Interpretive Data was last revised on 2017. Basophil pct 0.7 % [facility] Comment: Interpretive Data Percent cell count reference ranges are not reported, since discordance with absolute values may lead to misinterpretation of CBC data. Current Interpretive Data was last revised on 2017. Blood 07/06/2024 3:44 PM CDT 07/06/2024 3:58 PM CDT Abdirashid Garcia MD LAB BLOOD ORDERABLES Final Result Performing Organization Address [facility] Co de Phone Number [facility] [place] [address] * (ABNORMAL) CBC with auto differential (07/06/2024 3:44 PM CDT) WBC 8.5 3.8 - 9.9 K/cumm Hgb 11.8(L) 13.0 - 17.5 g/dL [facility] Hct 35.7(L) 38.9 - 50.3 % [facility] Plt 249 150 - 400 K/cumm [facility] MPV 8.4(L) 9.1 - 12.3 fL [facility] RBC 4.17(L) 4.30 - 5.80 M/cumm [facility] MCV 85.6 81.3 - 96.4 fL [facility] MCH 28.3 27.1 - 33.3 pg [facility] MCHC 33.1 32.3 - 35.7 g/dL [facility] RDW CV 16.5(H) 11.1 - 14.9 % [facility] RDW SD 51.3(H) 35.7 - 48.1 fL [facility] NRBC abs 0.11(H) 0.00 - 0.01 K/cumm [facility] Blood 07/06/2024 3:44 PM CDT 07/06/2024 3:58 PM CDT Abdirashid Garcia MD LAB BLOOD ORDERABLES Final Result Performing Organization Address [facility]/ZIP Co de Phone Number [facility] [place] [address] * Protein / creatinine ratio, urine, random (07/06/2024 3:44 PM CDT) Protein, ur, quant See Comment mg/dL Comment: Credited, collection error. Deleted at the Request of [facility] on 07/07/2024 12:36 by tp/dga . Interpretive Data No reference range established. Current interpretive data was last revised 2018. Creatinine Ur See Comment mg/dL [facility] Comment: Credited, collection error. Deleted at the Request of [facility] on 07/07/2024 12:36 by tp/dga . Interpretive Data No reference range established. Current interpretive data was last revised 2018. Protein/creatini ne ratio See Comment 0.0 - 180.0 mg/g CR [facility] Comment:Credited, collection error. Deleted at the Request of [facility] on 07/07/2024 12:36 by tp/dga . Urine 07/06/2024 3:44 PM CDT 07/06/2024 3:58 PM CDT Abdirashid Garcia MD LAB URINE ORDERABLES Edited Result - Final Performing Organization Address [facility] Co de Phone Number [facility] [place] [address] * TSH (07/06/2024 3:44 PM CDT) Thyroid Stimulating Hormone See Comment 0.30 - 4.20 mcIUnit/m L Comment:Credited, collection error. Deleted at the Request of [facility] on 07/07/2024 12:36 by tp/dga . Blood 07/06/2024 3:44 PM CDT 07/06/2024 3:58 PM CDT Abdirashid Garcia MD LAB BLOOD ORDERABLES Edited Result - [facility] [place] [address] * T4, free (07/06/2024 3:44 PM CDT) Free T4 See Comment 0.90 - 1.70 ng/dL Comment:Credited, collection error. Deleted at the Request of Afshan [facility] on 07/07/2024 12:36 by tp/dga . Blood 07/06/2024 3:44 PM CDT 07/06/2024 3:58 PM CDT Abdirashid Garcia MD LAB BLOOD ORDERABLES Edited Result - Final Performing Organization Address [facility] Co de Phone Number [facility] [place] [address] * Magnesium (07/06/2024 3:44 PM CDT) [facility] Magnesium See Comment 1.4 - 2.5 mg/dL Comment:Credited, collection error. Deleted at the Request of Afshan [facility] on 07/07/2024 12:36 by tp/dga . Blood 07/06/2024 3:44 PM CDT 07/06/2024 3:58 PM CDT Abdirashid Garcia MD LAB BLOOD ORDERABLES Edited Result - Final Performing Organization Address [facility] Co de Phone Number [facility] [place] [address] * Comprehensive metabolic panel (07/06/2024 3:44 PM CDT) [facility] Sodium See Comment 135 - 145 mmol/L Comment:Credited, collection error. Deleted at the Request of Afshan Armendariz [facility] on 07/07/2024 12:36 by tp/dga . Potassium, pl See Comment 3.3 - 4.9 mmol/L [facility] Comment:Credited, collection error. Deleted at the Request of [facility] on 07/07/2024 12:36 by tp/dga . Chloride See Comment 97 - 110 mmol/L [facility] Comment:Credited, collection error. Deleted at the Request of [facility] on 07/07/2024 12:36 by tp/dga . CO2 See Comment 22 - 32 mmol/L [facility] Comment:Credited, collection error. Deleted at the Request of [facility] on 07/07/2024 12:36 by tp/dga . Anion gap See Comment 2 - 15 mmol/L [facility] Comment:Credited, collection error. Deleted at the Request of [facility] on 07/07/2024 12:36 by tp/dga . BUN See Comment 6 - 25 mg/dL [facility] Comment:Credited, collection error. Deleted at the Request of [facility] on 07/07/2024 12:36 by tp/dga . Creatinine See Comment 0.80 - 1.30 mg/dL [facility] Comment:Credited, collection error. Deleted at the Request of [facility] on 07/07/2024 12:36 by tp/dga . Glucose See Comment 70 - 199 mg/dL [facility] Comment: Credited, collection error. Deleted at the Request of [facility] on 07/07/2024 12:36 by tp/dga . Interpretive [...] Calcium See Comment 8.5 - 10.3 mg/dL [facility] Comment:Credited, collection error. Deleted at the Request of [facility] on 07/07/2024 12:36 by tp/dga . Bilirubin, total See Comment 0.1 - 1.2 mg/dL [facility] Comment:Credited, collection error. Deleted at the Request of [facility] on 07/07/2024 12:36 by tp/dga . Protein, pl See Comment 6.5 - 8.5 g/dL [facility] Comment:Credited, collection error. Deleted at the Request of [facility] on 07/07/2024 12:36 by tp/dga . Albumin See Comment 3.5 - 5.0 g/dL [facility] Comment:Credited, collection error. Deleted at the Request of [facility] on 07/07/2024 12:36 by tp/dga . Alk phos See Comment 40 - 130 Units/L [facility] Comment:Credited, collection error. Deleted at the Request of [facility] on 07/07/2024 12:36 by tp/dga . ALT See Comment 7 - 55 Units/L [facility] Comment:Credited, collection error. Deleted at the Request of [facility] on 07/07/2024 12:36 by tp/dga . AST See Comment 10 - 50 Units/L [facility] Comment:Credited, collection error. Deleted at the Request of [facility] on 07/07/2024 12:36 by tp/dga . Blood 07/06/2024 3:44 PM CDT 07/06/2024 3:58 PM CDT us Abdirashid Garcia MD LAB BLOOD ORDERABLES Edited Result - Final [facility] [place] [address] * XR Chest 1 View (07/06/2024 2:57 [...] administration with 15 mL of Lidocaine 1%. 5-Moldovan One Step needle was advanced into the [...] administration with 15 mL of Lidocaine 1%. 5-Moldovan One Step needle was advanced into the [...] to the end of the procedure. Dr. Mendoza, Sherice ESTES and Tammy ESTES performed the thoracentesis. IMPRESSION: 1. Successful ultrasound-guided therapeutic thoracentesis. The radiology attending physician has personally reviewed this study, and had reviewed and/or edited this written report and agrees with it. Electronically signed by: Sherice Aguilera PA-C us Abdirashid Garcia MD IM US PROCEDURES Final Res ult * US Guided Thoracentesis Left (06/22/2024 11:33 AM STEM ASSEMBLER) Anatomical Region Laterality Modality Chest N/A Ultrasound 06/22/2024 12:0 7 PM STEM ASSEMBLER Impressions 06/22/2024 12:07 PM STEM ASSEMBLER 1. Successful ultrasound-guided therapeutic thoracentesis. Electronically signed by: Sherice Aguilera PA-C Narrative 06/22/2024 12:07 PM STEM ASSEMBLER EXAMINATION: THERAPEUTIC THORACENTESIS HISTORY: 5-year-old male with [...] administration with 9 mL of Lidocaine 1%. 5-Moldovan One Step needle was advanced into the [...] no pneumothorax. Sherice Aguilera PA-C, the Physician Risk Management Consultant, was present from the beginning to the [...] administration with 9 mL of Lidocaine 1%. 5-Moldovan One Step needle was advanced into the pleural cavity. Appropriate needle location was documented with continuous sonographic guidance. 1300 mL of wes-colored pleural fluid were obtained. The patient's skin was cleaned and dressed. The patient tolerated the procedure well and was discharged in stable condition. The ultrasound obtained immediately following the procedure and the post procedure chest radiograph showed no pneumothorax. Sehrice Aguilera PA-C, the Physician Risk Management Consultant, was present from the beginning to the end of the procedure. Sherice ESTES performed the thoracentesis. Dr. Maximiliano Dean was present and participated in the procedure. IMPRESSION: 1. Successful ultrasound-guided therapeutic thoracentesis. Electronically signed by: Sherice Aguilera PA-C us Abdirashid Garcia MD [facility] PROCEDURES Final Res ult * XR Chest 1 View (06/22/2024 11:27 AM STEM ASSEMBLER) Anatomical Region Laterality Modality Body, Chest N/A Computed Radiogr aphy 06/22/2024 11:4 7 AM STEM ASSEMBLER Impressions 06/22/2024 2:20 PM STEM ASSEMBLER Comparison is made to radiograph dated 06/11/2024. [...] Mac Robles M.D. Narrative 06/22/2024 2:20 PM STEM ASSEMBLER EXAMINATION: 1 view chest radiograph Procedure Note [...] creatinine ratio, urine, random (06/17/2024 8:13 AM STEM ASSEMBLER) Protein, ur, quant 30.2 mg/dL Comment: Interpretive Data No reference range established. Current interpretive data was last revised 2018. Creatinine Ur 294.8 mg/dL [facility] Comment: Interpretive Data No reference range established. Current interpretive data was last revised 2018. Protein/creatinin e ratio 102.4 0.0 - 180.0 mg/g CR [facility] Urine 06/17/2024 8:13 AM STEM ASSEMBLER 06/17/2024 8:23 AM STEM ASSEMBLER us Leola Alvarez [employer] [facility] URINE ORDERABLES Final Result [facility] [place] [address] * eGFR (06/17/2024 8:00 AM STEM ASSEMBLER) [facility] eGFR >90 >=60 mL/min/1. 73 m2 Comment: [...] last reviewed 2021. Blood 06/17/2024 8:00 AM STEM ASSEMBLER 06/17/2024 8:02 AM STEM ASSEMBLER us Leola Alvarez [employer] LAB BLOOD ORDERABLES Final Result [facility] [place] [address] * (ABNORMAL) CBC with auto differential (06/17/2024 8:00 AM STEM ASSEMBLER) [facility] WBC 7.5 3.8 - 9.9 K/cumm Comment:Testing performed by : [facility], [address] [place] [phone] Hgb 13.1 13.0 - 17.5 g/dL [facility] Comment:Testing performed by : [facility], [address] [place] [phone] Hct 39.3 38.9 - 50.3 % [facility] Comment:Testing performed by : [facility], [address] [place] [phone] Plt 295 150 - 400 K/cumm [facility] Comment:Testing performed by : [facility], [address] [place] [address] MPV 6.1(L) 6.8 - 10.4 fL [facility] Comment:Testing performed by : [facility], [address] [place] [address] RBC 4.60 4.30 - 5.80 M/cumm [facility] Comment:Testing performed by : [facility], [address] [place] [address] MCV 85.3 81.3 - 96.4 fL [facility] Comment:Testing performed by : [facility], [address] [place], [place] [phone] MCH 28.5 27.1 - 33.3 pg [facility] Comment:Testing performed by : [facility], [address] [place] [address] MCHC 33.4 32.3 - 35.7 g/dL [facility] Comment:Testing performed by : [facility], [address] [place] [address] RDW CV 17.4(H) 11.1 - 14.9 % [facility] Comment:Testing performed by : [facility], [address] [place] [address] NRBC abs 0.00 0.00 - 0.01 K/cumm [facility] Comment:Testing performed by : [facility], [address] [place] [address] Blood 06/17/2024 8:00 AM STEM ASSEMBLER 06/17/2024 8:01 AM STEM ASSEMBLER Leola Alvarez NP LAB BLOOD ORDERABLES Final Result [facility] [place] [address] * (ABNORMAL) Manual Differential (06/17/2024 8:00 AM STEM ASSEMBLER) Cells Counted 201 Comment:Testing performed by : [facility], [address] [place] [phone] Neutrophil abs 5.3 1.5 - 6.5 K/cumm [facility] Comment:Testing performed by : [facility], [address] [place] [phone] Lymphocyte abs 1.0 0.8 - 3.3 K/cumm [facility] Comment:Testing performed by : [facility], [address] [place] [phone] Monocyte abs 0.7 0.2 - 0.8 K/cumm [facility] Comment:Testing performed by : [facility], [address] [place] [phone] Eosinophil abs 0.2 0.0 - 0.5 K/cumm [facility] Comment:Testing performed by : [facility], [address] [place] [phone] Basophil abs 0.2(H) 0.0 - 0.1 K/cumm [facility] Comment:Testing performed by : [facility], [address] [place] [phone] Neutrophil pct 71.0 % [facility] Comment: Interpretive Data Percent cell count reference ranges are not reported, since discordance with absolute values may lead to misinterpretation of CBC data. Current Interpretive Data was last revised on 2017. Testing performed by: [facility], [address] [place] [phone] Lymphocyte pct 13.0 % [facility] Comment: Interpretive Data Percent cell count reference ranges are not reported, since discordance with absolute values may lead to misinterpretation of CBC data. Current Interpretive Data was last revised on 2017. Testing performed by: [facility], [address] [place], [place] [phone] Monocyte pct 9.0 % [facility] Comment: Interpretive Data Percent cell count reference ranges are not reported, since discordance with absolute values may lead to misinterpretation of CBC data. Current Interpretive Data was last revised on 2017. Testing performed by: [facility], [address] [place] [phone] Eosinophil pct 2.0 % [facility] Comment: Interpretive Data Percent cell count reference ranges are not reported, since discordance with absolute values may lead to misinterpretation of CBC data. Current Interpretive Data was last revised on 2017. Testing performed by: [facility], [address] [place] [phone] Basophil pct 2.0 % [facility] Comment: Interpretive Data Percent cell count reference ranges are not reported, since discordance with absolute values may lead to misinterpretation of CBC data. Current Interpretive Data was last revised on 2017. Testing performed by: [facility], [address] [place] [phone] Metamyelocyte pct 2.0 % [facility] Comment:Testing performed by : [facility], [address] [place] [address] Myelocyte pct 1.0 % [facility] Comment:Testing performed by : [facility], [address] [place] [phone] Variant lymph pct 2.0 % [facility] Comment:Testing performed by : [facility], [address] [place] [phone] RBC morphology Normal [facility] Comment:Testing performed by : [facility], [address] [place] [phone] Platelet estimate Adequate [facility] Comment:Testing performed by : [facility], [address] [place] [phone] Blood 06/17/2024 8:00 AM STEM ASSEMBLER 06/17/2024 8:01 AM STEM ASSEMBLER us Leola Alvarez [employer] LAB BLOOD ORDERABLES Final Result [facility] [place] [address] * (ABNORMAL) TSH (06/17/2024 8:00 AM STEM ASSEMBLER) [facility] Thyroid Stimulating Hormone 4.52(H) 0.30 - 4.20 mcIUnit/mL Blood 06/17/2024 8:00 AM STEM ASSEMBLER 06/17/2024 8:02 AM STEM ASSEMBLER Leola Alvarez NP LAB BLOOD ORDERABLES Final Result [facility] [place] [address] * T4, free (06/17/2024 8:00 AM STEM ASSEMBLER) [facility] Free T4 1.11 0.90 - 1.70 ng/dL Blood 06/17/2024 8:00 AM STEM ASSEMBLER 06/17/2024 8:02 AM STEM ASSEMBLER Leola Alvarez NP LAB BLOOD ORDERABLES Final Result Performing Organization Address City/[facility]/ZIP Co de Phone Number [facility] [address] * Magnesium (06/17/2024 8:00 AM STEM ASSEMBLER) [facility] Magnesium 2.1 1.4 - 2.5 mg/dL Blood 06/17/2024 8:00 AM STEM ASSEMBLER 06/17/2024 8:02 AM STEM ASSEMBLER Leola Alvarez [employer] HAND LAB BLOOD ORDERABLES Final Result [facility] [address] * (ABNORMAL) Comprehensive metabolic panel (06/17/2024 8:00 AM STEM ASSEMBLER) [facility] Sodium 137 135 - 145 mmol/L Potassium, pl 4.3 3.3 - 4.9 mmol/L [facility] Chloride 99 97 - 110 mmol/L [facility] CO2 29 22 - 32 mmol/L [facility] Anion gap 9 2 - 15 mmol/L [facility] BUN 17 6 - 25 mg/dL [facility] Creatinine 0.83 0.80 - 1.30 mg/dL [facility] Glucose 134 70 - 199 mg/dL [facility] Comment: Interpretive Data Fasting glucose >/= 126 [...] 2022. Calcium 10.5(H) 8.5 - 10.3 mg/dL [facility] Bilirubin, total 0.2 0.1 - 1.2 mg/dL [facility] Protein, pl 7.7 6.5 - 8.5 g/dL [facility] Albumin 3.6 3.5 - 5.0 g/dL [facility] Alk phos 135(H) 40 - 130 Units/L [facility] ALT 31 7 - 55 Units/L [facility] AST 170(H) 10 - 50 Units/L [facility] Blood 06/17/2024 8:00 AM STEM ASSEMBLER 06/17/2024 8:02 AM STEM ASSEMBLER Leola Alvarez NP LAB BLOOD ORDERABLES Final Result [facility] [place] [address] * XR Chest 1 View (06/11/2024 2:31 PM STEM ASSEMBLER) Anatomical Region Laterality Modality Body, Chest N/A Computed Radiogr aphy 06/11/2024 3:46 PM STEM ASSEMBLER Impressions 06/11/2024 4:01 PM STEM ASSEMBLER Comparison is made to chest radiograph dated [...] Carol Lynne M.D. Narrative 06/11/2024 4:01 PM STEM ASSEMBLER EXAMINATION: 1 view chest radiograph Procedure Note [...] US Guided Thoracentesis Left (06/11/2024 2:27 PM STEM ASSEMBLER) Anatomical Region Laterality Modality Chest N/A Ultrasound 06/11/2024 3:33 PM STEM ASSEMBLER Impressions 06/11/2024 3:33 PM STEM ASSEMBLER 1. Successful ultrasound-guided therapeutic thoracentesis. The radiology attending physician has personally reviewed this study, and had reviewed and/or edited this written report and agrees with it. Electronically signed by: FRANKLYN Walls Narrative 06/11/2024 3:33 PM STEM ASSEMBLER EXAMINATION: THERAPEUTIC THORACENTESIS HISTORY: 59-year-old man with [...] administration with 10 mL of Lidocaine 1%. 5-Moldovan One Step needle was advanced into the [...] participated in the procedure. Dr. Miguel Hernandez (hvac technician residential) personally participated in sonographic imaging of this [...] administration with 10 mL of Lidocaine 1%. 5-Moldovan One Step needle was advanced into the [...] participated in the procedure. Dr. Miguel Hernandez (hvac technician residential) personally participated in sonographic imaging of this patient. IMPRESSION: 1. Successful ultrasound-guided therapeutic thoracentesis. The radiology attending physician has personally reviewed this study, and had reviewed and/or edited this written report and agrees with it. Electronically signed by: FRANKLYN Walls us Abdirashid Garcia MD IMG US PROCEDURES Final Res ult * XR Chest 1 View (06/04/2024 2:44 PM STEM ASSEMBLER) Anatomical Region Laterality Modality Body, Chest N/A Computed Radiogr aphy 06/04/2024 3:12 PM STEM ASSEMBLER Impressions 06/04/2024 4:47 PM STEM ASSEMBLER Comparison is made to chest radiograph of [...] Singh MD, PHD Narrative 06/04/2024 4:47 PM STEM ASSEMBLER EXAMINATION: 1 view chest radiograph Procedure Note [...] the right 4th rib. Dictated by: Jerald Lue, M.D. The radiology attending physician has personally reviewed this study, and had reviewed and/or edited this written report and agrees with it. Electronically signed by: Flaco Singh MD, PHD Sherice ESTES IMToshia XR PROCEDURES Final Re sult * US Guided Thoracentesis Left (06/04/2024 2:42 PM STEM ASSEMBLER) Anatomical Region Laterality Modality Chest N/A Ultrasound 06/04/2024 3:00 PM STEM ASSEMBLER Impressions 06/04/2024 3:00 PM STEM ASSEMBLER 1. Successful ultrasound-guided therapeutic thoracentesis. The radiology attending physician has personally reviewed this study, and had reviewed and/or edited this written report and agrees with it. Electronically signed by: Sherice Aguilera PA-C Narrative 06/04/2024 3:00 PM STEM ASSEMBLER EXAMINATION: THERAPEUTIC THORACENTESIS HISTORY: 59-year-old man with [...] administration with 18 mL of Lidocaine 1%. 5-Moldovan One Step needle was advanced into the [...] PA-C performed the thoracentesis. Dr. Jc Grace (hvac technician residential) was present and participated in the procedure. [...] administration with 18 mL of Lidocaine 1%. 5-Moldovan One Step needle was advanced into the [...] PA-C performed the thoracentesis. Dr. Jc Grace (hvac technician residential) was present and participated in the procedure. IMPRESSION: 1. Successful ultrasound-guided therapeutic thoracentesis. The radiology attending physician has personally reviewed this study, and had reviewed and/or edited this written report and agrees with it. Electronically signed by: Sherice Aguilera PA-C us Abdirashid Garcia MD [facility] [place] PROCEDURES Final Res ult * XR Chest 1 View (05/28/2024 2:41 PM STEM ASSEMBLER) Anatomical Region Laterality Modality Body, Chest N/A Computed Radiogr aphy 05/28/2024 3:00 PM STEM ASSEMBLER Impressions 05/28/2024 4:53 PM STEM ASSEMBLER Comparison is made to radiograph dated 05/17/2024. [...] Carol Lynne M.D. Narrative 05/28/2024 4:53 PM STEM ASSEMBLER EXAMINATION: 1 view chest radiograph Procedure Note [...] it. Electronically signed by: Carol Lynne M.D. Meron Holcomb MD IMG XR PROCEDURES Final Result * US Guided Thoracentesis Left (05/28/2024 2:37 PM STEM ASSEMBLER) Anatomical Region Laterality Modality Chest N/A Ultrasound 05/28/2024 2:56 PM STEM ASSEMBLER Impressions 05/28/2024 2:56 PM STEM ASSEMBLER 1. Successful ultrasound-guided therapeutic thoracentesis. Electronically signed by: FRANKLYN Walls Narrative 05/28/2024 2:56 PM STEM ASSEMBLER EXAMINATION: THERAPEUTIC THORACENTESIS HISTORY: 59-year-old man with [...] administration with 6 mL of Lidocaine 1%. 5-Moldovan One Step needle was advanced into the [...] ESTES performed the thoracentesis. Dr. Meron Holcomb (hvac technician residential) was present and participated in the procedure. [...] administration with 6 mL of Lidocaine 1%. 5-Moldovan One Step needle was advanced into the [...] ESTES performed the thoracentesis. Dr. Meron Holcomb (hvac technician residential) was present and participated in the procedure. IMPRESSION: 1. Successful ultrasound-guided therapeutic thoracentesis. Electronically signed by: FRANKLYN Walls us Abdirashid Garcia MD IMG US PROCEDURES Final Res ult * Protein / creatinine ratio, urine, random (05/27/2024 7:59 AM STEM ASSEMBLER) Protein, ur, quant 28.7 mg/dL Comment: Interpretive Data No reference range established. Current interpretive data was last revised 2018. Creatinine Ur 246.5 mg/dL [facility] Comment: Interpretive Data No reference range established. Current interpretive data was last revised 2018. Protein/creatinin e ratio 116.4 0.0 - 180.0 mg/g CR [facility] Urine 05/27/2024 7:59 AM STEM ASSEMBLER 05/27/2024 8:34 AM STEM ASSEMBLER Abdirashid Garcia MD LAB URINE ORDERABLES Final Result [facility] [place] [address] * eGFR (05/27/2024 7:45 AM STEM ASSEMBLER) eGFR >90 >=60 mL/min/1. 73 m2 Comment: [...] last reviewed 2021. Blood 05/27/2024 7:45 AM STEM ASSEMBLER 05/27/2024 7:51 AM STEM ASSEMBLER Abdirashid Garcia MD LAB BLOOD ORDERABLES Final Result [facility] [place] [address] * (ABNORMAL) CBC with auto differential (05/27/2024 7:45 AM STEM ASSEMBLER) WBC 8.2 3.8 - 9.9 K/cumm Comment:Testing performed by : [facility], [address] [place] [address] Hgb 13.5 13.0 - 17.5 g/dL [facility] Comment:Testing performed by : [facility], [address] [place] [address] Hct 39.5 38.9 - 50.3 % [facility] Comment:Testing performed by : [facility], [address] [place] [address] Plt 328 150 - 400 K/cumm [facility] Comment:Testing performed by : [facility], [address] [place] [address] MPV 6.2(L) 6.8 - 10.4 fL [facility] Comment:Testing performed by : [facility], [address] [place] [address] RBC 4.63 4.30 - 5.80 M/cumm [facility] Comment:Testing performed by : [facility], [address] [place] [address] MCV 85.3 81.3 - 96.4 fL [facility]ERLINDA [facility] Comment:Testing performed by : [facility], [address] [place] [address] MCH 29.1 27.1 - 33.3 pg [facility]ERLINDA [facility]IEGLER Comment:Testing performed by : [facility], [address] [place] [address] MCHC 34.1 32.3 - 35.7 g/dL [facility] Comment:Testing performed by : [facility], [address] [place] [address] RDW CV 16.2(H) 11.1 - 14.9 % [facility]J Comment:Testing performed by : [facility], [address] [place] [address] NRBC abs 0.00 0.00 - 0.01 K/cumm CERLINDA BJ Comment:Testing performed by : [facility], [address] [place] [address] Blood 05/27/2024 7:45 AM STEM ASSEMBLER 05/27/2024 7:48 AM STEM ASSEMBLER Abdirashid Garcia MD LAB BLOOD ORDERABLES Edited Result - Final [facility] Department of Laboratories [place] [id number] * (ABNORMAL) Manual Differential (05/27/2024 7:45 AM STEM ASSEMBLER) Cells Counted 200 Comment:Testing performed by : [facility], [address] [place] [address] Neutrophil abs 5.9 1.5 - 6.5 K/cumm [facility] Comment:Testing performed by : [facility], [address] [place] [address] Lymphocyte abs 0.7(L) 0.8 - 3.3 K/cumm [facility] Comment:Testing performed by : [facility], [address] [place] [address] Monocyte abs 0.9(H) 0.2 - 0.8 K/cumm [facility] Comment:Testing performed by : [facility], [address] [place] [address] Eosinophil abs 0.4 0.0 - 0.5 K/cumm [facility] Comment:Testing performed by : [facility], [address], [place] [address] Basophil abs 0.1 0.0 - 0.1 K/cumm [facility] Comment:Testing performed by : [facility], [address] [place] [phone] Neutrophil pct 72.0 % [facility] Comment: Interpretive Data Percent cell count reference ranges are not reported, since discordance with absolute values may lead to misinterpretation of CBC data. Current Interpretive Data was last revised on 2017. Testing performed by: [facility], [address] [place] [phone] Lymphocyte pct 9.0 % [facility] Comment: Interpretive Data Percent cell count reference ranges are not reported, since discordance with absolute values may lead to misinterpretation of CBC data. Current Interpretive Data was last revised on 2017. Testing performed by: [facility], [address] [place] [phone] Monocyte pct 11.0 % [facility] Comment: Interpretive Data Percent cell count reference ranges are not reported, since discordance with absolute values may lead to misinterpretation of CBC data. Current Interpretive Data was last revised on 2017. Testing performed by: [facility], [address] [place] [phone] Eosinophil pct 5.0 % [facility] Comment: Interpretive Data Percent cell count reference ranges are not reported, since discordance with absolute values may lead to misinterpretation of CBC data. Current Interpretive Data was last revised on 2017. Testing performed by: [facility], [address] [place] [phone] Basophil pct 1.0 % [facility] Comment: Interpretive Data Percent cell count reference ranges are not reported, since discordance with absolute values may lead to misinterpretation of CBC data. Current Interpretive Data was last revised on 2017. Testing performed by: [facility], [address] [place] [phone] Metamyelocyte pct 1.0 % [facility] Comment:Testing performed by : [facility], [address] [place] [phone] Variant lymph pct 4.0 % [facility] Comment:Testing performed by : [facility], [address] [place] [phone] Smudge cells, qual Present(A) [facility] Comment:Testing performed by : [facility], [address] [place] [phone] Polychromasia 1+(A) [facility] Comment:Testing performed by : [facility], [address] [place] [phone] Hypochromasia 1+(A) [facility] Comment:Testing performed by : [facility], [address] [place] [phone] Anisocytosis 1+(A) [facility] Comment:Testing performed by : [facility], [address] [place] [phone] Poikilocytosis 1+(A) [facility] Comment:Testing performed by : [facility], [address] [place] [phone] Microcytes 1+(A) [facility] Comment:Testing performed by : [facility], [address] [place] [phone] Macrocytes 1+(A) [facility] Comment:Testing performed by : [facility], [address] [place] [phone] Elliptocytes 1+(A) [facility] Comment:Testing performed by : [facility], [address] [place] [phone] Platelet estimate Adequate [facility] Comment:Testing performed by : [facility], [address] [place] [phone] Blood 05/27/2024 7:45 AM STEM ASSEMBLER 05/27/2024 7:48 AM STEM ASSEMBLER us Abdirashid Garcia MD LAB BLOOD ORDERABLES Final Result [facility] Department of Laboratories [place], [place] [id number] * TSH (05/27/2024 7:45 AM STEM ASSEMBLER) [facility] Thyroid Stimulating Hormone 4.04 0.30 - 4.20 mcIUnit/mL Blood 05/27/2024 7:45 AM STEM ASSEMBLER 05/27/2024 7:51 AM STEM ASSEMBLER Abdirashid Garcia MD LAB BLOOD ORDERABLES Final Result Performing Organization Address City/[facility] Co de Phone Number [facility] [place] [address] * T4, free (05/27/2024 7:45 AM STEM ASSEMBLER) [facility] Free T4 1.13 0.90 - 1.70 ng/dL Blood 05/27/2024 7:45 AM STEM ASSEMBLER 05/27/2024 7:51 AM STEM ASSEMBLER Abdirashid Garcia MD LAB BLOOD ORDERABLES Final Result Performing Organization Address [facility] de Phone Number [place] [address] * Magnesium (05/27/2024 7:45 AM STEM ASSEMBLER) [facility] Magnesium 2.1 1.4 - 2.5 mg/dL Blood 05/27/2024 7:45 AM STEM ASSEMBLER 05/27/2024 7:51 AM STEM ASSEMBLER Abdirashid Garcia MD LAB BLOOD ORDERABLES Final Result Performing Organization Address [facility] [place] [address] * (ABNORMAL) Comprehensive metabolic panel (05/27/2024 7:45 AM STEM ASSEMBLER) [facility] Sodium 137 135 - 145 mmol/L Potassium, pl 4.2 3.3 - 4.9 mmol/L [facility] Chloride 100 97 - 110 mmol/L [facility] CO2 29 22 - 32 mmol/L [facility] Anion gap 8 2 - 15 mmol/L [facility] BUN 19 6 - 25 mg/dL [facility] Creatinine 0.86 0.80 - 1.30 mg/dL [facility] Glucose 133 70 - 199 mg/dL [facility] Comment: Interpretive Data Fasting glucose >/= 126 [...] 2022. Calcium 10.3 8.5 - 10.3 mg/dL [facility] Bilirubin, total 0.2 0.1 - 1.2 mg/dL [facility] Protein, pl 8.1 6.5 - 8.5 g/dL [facility] Albumin 3.9 3.5 - 5.0 g/dL [facility] Alk phos 133(H) 40 - 130 Units/L [facility] ALT 30 7 - 55 Units/L [facility] AST 172(H) 10 - 50 Units/L [facility] Blood 05/27/2024 7:45 AM STEM ASSEMBLER 05/27/2024 7:51 AM STEM ASSEMBLER us Abdirashid Garcia MD LAB BLOOD ORDERABLES Final Result [facility] [place] [address] * XR Chest 1 View (05/17/2024 8:51 AM STEM ASSEMBLER) Anatomical Region Laterality Modality Body, Chest N/A Computed Radiogr aphy 05/17/2024 8:56 AM STEM ASSEMBLER Impressions 05/17/2024 8:56 AM STEM ASSEMBLER The current study is compared with the prior radiograph dated 05/04/2024. Again seen is a large to moderate left effusion. There is no pneumothorax. No right effusion. Healed fracture deformity of the right 5th rib noted the cardiac silhouette is largely obscured. Overall there is no interval change. Electronically signed by: Carol Lynne M.D. Narrative 05/17/2024 8:56 AM STEM ASSEMBLER EXAMINATION: 1 view chest radiograph Procedure Note [...] change. Electronically signed by: Carol Lynne M.D. us Cecilia ESTES IMG XR PROCEDURES Final Res ult * US Guided Thoracentesis Left (05/17/2024 8:50 AM STEM ASSEMBLER) Anatomical Region Laterality Modality Chest N/A Ultrasound 05/17/2024 9:39 AM STEM ASSEMBLER Impressions 05/17/2024 9:39 AM STEM ASSEMBLER 1. Successful ultrasound-guided therapeutic left thoracentesis. The radiology attending physician has personally reviewed this study, and had reviewed and/or edited this written report and agrees with it. Electronically signed by: FRANKLYN Walls Narrative 05/17/2024 9:39 AM STEM ASSEMBLER EXAMINATION: THERAPEUTIC THORACENTESIS HISTORY: 59-year-old man with [...] administration with 16 mL of Lidocaine 1%. 5-Moldovan One Step needle was advanced into the [...] showed no pneumothorax. FRANKLYN Walls, the physician printer assistant was present from the beginning to the end of the procedure and performed the procedure. Dr. Bautista (hvac technician residential) was present and participated in the procedure. [...] administration with 16 mL of Lidocaine 1%. 5-Moldovan One Step needle was advanced into the [...] showed no pneumothorax. FRANKLYN Walls, the physician printer assistant was present from the beginning to the end of the procedure and performed the procedure. Dr. Bautista (hvac technician residential) was present and participated in the procedure. IMPRESSION: 1. Successful ultrasound-guided therapeutic left thoracentesis. The radiology attending physician has personally reviewed this study, and had reviewed and/or edited this written report and agrees with it. Electronically signed by: FRANKLYN Walls us Abdirashid Garcia MD [facility] PROCEDURES Final Res ult from Last 3 Months Insurance ANTHEM ACCESS BLUE [employer] [place] Advance Directives For more information, please contact: [phone] * Full Code (Latest Code Status on File) Date Activated Date Inactivated Comments 08/05/2024 7:17 AM 08/06/2024 4:52 AM Care Teams Fountain Brush Assembler Relationship Specialty Start Date End Date Vivek Hernandez MD [address] [place] [address] PCP - General 06/05/20 Akhil Nelson II, MD [address] [place] [address] Surgeon Otolaryngology 03/05/21 Melodie Trimble MD [address] [place] [address] Radiation Oncologist Radiation Oncology 03/05/21 Shaggy Perea MD [address] [facility] [address] DIV [place] [address] Consulting Physician Medical Oncology 10/28/23 Abdirashid Garcia MD [address] [facility] [address] [place] [address] Medical Oncologist/Steam Box Operator Medical Oncology 12/04/23
--- OUTSIDE RECORDS SUMMARY | 2024-08-07 22:41 | XMS_ITS ---
Author Organization [facility] Address [facility] [place] [address] Care Team Providers Care Csw Name Role Phone Vivek Hernandez MD Primary Care Provider + [phone] Omar ROCK MD, Akhil Neal Unavailable [phone] Melodie Trimble MD Unavailable [phone] Shaggy Peera MD Unavailable [phone] Abdirashid Garcia MD Unavailable [phone] Active Problems Problem Noted Date Diagnosed Date [...] Signed by Adriel Dodge MD on 06/23/2018 Current Treatment and Therapy Plans IV Maintenance Therapy Plan* Plan Start Date:02/12/2024 Plan Provider:Abdirashid Garcia MD Linked Problems 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) Treatment Medications Current Day (Day 1 , Cycle 2 - Planned for 08/26/2024) Next Day (Day 1, Cycle 3 - Planned for 09/16/2024) CARBOplatin (PARAPLATIN)CARBOplatin (PARAPLATIN) IVPB in 250 mLPACLitaxel (TAXOL)PACLItaxel (TAXOL) IVPB in 500 mL CARBOplatin (PARAPLATIN) 568 mg in sodium chloride 0.9% 250 mL IVPB (By AUC)PACLitaxeL (TAXOL) 228 mg in sodium chloride 0.9% (PVC-FREE) 500 mL IVPB CARBOplatin (PARAPLATIN) 568 mg in sodium chloride 0.9% 250 mL IVPB (By AUC)PACLitaxeL (TAXOL) 228 mg in sodium chloride 0.9% (PVC-FREE) 500 mL IVPB Zoledronic Acid Every 6 Weeks* Plan Start Date:01/01/2024 Plan Provider:Abdirashid Garcia MD Linked Problems Head and neck cancer (HCC)To nsil 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 No medications schedul ed. No medications scheduled. Past Treatment and Therapy Plans Line Care Plan Name Start Date Discontinue Date Treatment Medications Discontinue Reason Plan Provider IV MAINTENANCE THERAPY PLAN 08/06/2018 07/08/2023 No medications scheduled. Automatic discontinuation of dormant plans Adriel Dodge MD Oncology Chemotherapy Treatment Plan Name Start Date Discontinue Date Treatment Medications Discontinue Reason Plan Provider Cycles CISplatin with Concurrent Radiation 21 Day Cycles - Head and Neck 9 12/14/2018 CISplatin (PLATINOL) IVPB in 250 mL Therapy Complete Adriel Dodge MD 3 of 3 cycles started Oncology Supportive Care Plan Name Start Date Discontinue Date Treatment Medications Discontinue Reason Plan Provider Denosumab (XGEVA) Injection 12/30/2023 12/26/2023 No medications scheduled. Financial Abdirashid Garcia MD IV MAINTENANCE THERAPY PLAN 12/30/2023 08/06/2018 No medications scheduled. Protocol Amendment/Adriel Bahena MD Oncology Treatment (2) Plan Name Start Date Discontinue Date Treatment Medications Discontinue Reason Plan Provider Cycles [id number] - [facility] - Head and Neck - [id number] - Arm 1 - Ramucirumab / Pembrolizumab 07/29/2024 [id number] (161) ramucirumab IVPB in 250 mLpembrolizumab (KEYTRUDA) Progression Abdirashid Garcia MD 10 of 14 cycles started Lifetime Dose Tracking * Chemical Lifetime Dose Automatic Entry Manual Entr y Fluoro Time 4 minutes 4 minutes 0 minutes Air kerma at the reference point (Ka,r) 2 mGy 2 mGy 0 mGy DLP 4,334.6 mGycm 4,334.6 mGycm 0 mGycm
--- OUTSIDE RECORDS SUMMARY | 2024-08-07 22:41 | XMS_ITS | Clinical Summary ---
Author Organization [facility] Address [facility] [place] [address] Care Team Providers Care Order Dispatcher Chief Name Role Phone Vivek Hernandez MD Primary Care Provider Allergies No known active allergies Medications omeprazole (PRILOSEC) 20 MG capsule Take 1 capsule (20 mg total) by mouth daily. Active meloxicam (MOBIC) 15 MG tabletIndications:Pr imary osteoarthritis of first carpometacarpal joint of right hand Take 1 tablet (15 mg total) by mouth daily. 30 tablet 2 3 Active Active Problems Problem Noted Date Diagnosed Date Primary osteoarthritis of fi rst carpometacarpal joint of right hand 03/31/2023 Ganglion cyst of volar aspect of right wrist 07/2022 Personal history of malignan t neoplasm of other sites of lip, oral cavity, and pharynx 06/09/2020 Family History Medical History Relation Comments Heart Attack Brother Lung Cancer Father Relation Status Comments Brother Father Social History Tobacco Use Types Packs/Day Years Used Date Smoking Tobacco: Never Smokeless Tobacco: Never Tobacco Cessation:Counseling Given: Not Answered Alcohol Use Standard Drinks/Week Comments Yes 0 (1 standard drink = 0.6 oz pur e alcohol) Occasionally Sex and Gender Information Value Date Recorded Sex Assigned at Not on file Legal Sex Male 5:53 PM QUALITY ASSURANCE REPRESENTATIVE Gender Identity Not on file Sexual Orientation Not on file Last Filed Vital Signs Vital Sign Reading Time Taken Comments Blood Pressure - - Pulse - - Temperature - - Respiratory Rate - - Oxygen Saturation - - Inhaled Oxygen Concentration - - Weight 72.6 kg (160 lb) 03/31/2023 2:21 PM QUALITY ASSURANCE REPRESENTATIVE Height 167.6 cm (5' 6 ) 03/31/2023 2:21 PM QUALITY ASSURANCE REPRESENTATIVE Body Mass Index 25.82 03/31/2023 2:21 PM QUALITY ASSURANCE REPRESENTATIVE Plan of Treatment Health Maintenance Due Date Last Done Comments Colorectal Cancer Screening Colonoscopy (10 Years) 1964 Annual Physical 01/22/1967 Hepatitis C 01/22/1982 COVID-19 Vaccine (1 - 2023-2 5 season) 2023 DTaP, Tdap and Td Vaccines ( 2 - Td or Tdap) 02/12/2027 02/12/2017 RSV Immunization or 60+ Years (1 - 1-dose 75+ series) 01/22/2039 Zoster Vaccines Completed 04/13/2021, 02/09/2021 Meningococcal B Vaccine Aged Out No l onger eligible based on patient's age to complete this topic Meningococcal Vaccine Aged Out No hanh alix eligible based on patient's age to complete this topic Pneumococcal Vaccine: Pediatrics (0 to 5 Years) and At-Risk Patients (6 to 64 Years) Aged Out No longer eligible b ased on patient's age to complete this topic RSV Immunizations Under 20 Months Aged Out No longer eligible b ased on patient's age to complete this topic Insurance Care Teams Order Dispatcher Chief Relationship Specialty Start Date End Date Vivek Hernandez MD [address] [id number] PCP - General FAMILY PRACTICE 11/26/19
[2024-08-07 22:45] LABS: Basophils Percent Auto 0.1 % (0.2-1.2); Hematocrit 30.6 % (42.0-52.0); Hemoglobin 9.6 g/dL (14.0-18.0); Immature Granulocyte Absolute 0.17 K/mm3 (0.00-0.031); Immature Granulocyte Percent A 2.3 % (0-0.5); Lymphocytes Absolute Auto 0.24 K/mm3 (0.9-3.2); Lymphocytes Percent Auto 3.3 % (18.3-44.2); Mean Corpuscular HGB Conc 31.4 g/dl (32-36); Mean Corpuscular Hemoglobin 28.2 pg (26-34); Mean Platelet Volume 8.7 fl (7.4-10.4); Monocytes Absolute Auto 0.1 K/mm3 (0.1-0.6); Monocytes Percent Auto 1.8 % (2.6-8.5); Neutrophils Absolute Auto 6.7 K/mm3 (1.3-6.7); Neutrophils Percent Auto 92.5 % (45.5-73.1); Nucleated Red Blood Cells Perc 0.3 % (0.0-0.2); Platelet Count Result 178 k/mm3 (150-375); Red Cell Distribution Width 18.6 % (11.5-14.5); White Blood Count 7.3 K/mm3 (4.5-10.0)
[2024-08-07 22:58] LABS: INR 0.9; Partial Thromboplastin Time 25.3 Seconds (22.3-36.8)
[2024-08-07 22:59] LABS: Alanine Aminotransferase 29 U/L (6-50); Albumin Level 3.9 g/dL (3.5-5.1); Alkaline Phosphatase 137 U/L (38-126); Anion Gap 9 mmol/L (4-12); Aspartate Amino Transferase 221 U/L (17-59); Bilirubin,Total 0.4 mg/dL (0.2-1.3); Blood Urea Nitrogen 22 mg/dL (9-20); Carbon Dioxide 25 mmol/L (22-30); Chloride 101 mmol/L (98-107); Estimated CRCL calculation 86 ml/min; Estimated Glomerular Filt Rate > 60; Glucose 132 mg/dL (65-110); Potassium 5.2 mmol/L (3.4-5.0); Sodium 135 mmol/L (137-145)
[2024-08-07 23:08] LABS: Lactic Acid Reflex 4.2 mmol/L (0.7-2.0)
[2024-08-07 23:11] LABS: Anisocytosis 1+; Platelet Estimate Adequate (Adequate)
[2024-08-07 23:12] LABS: Schistocytes None Seen; Tear Drop Cells 1+
[2024-08-07 23:25] VITALS: BP 116/89; PULSE 97; RESP 20; O2SAT 98
[2024-08-07 23:31] VITALS: BP 118/86; PULSE 97; RESP 21; O2SAT 99
[2024-08-07 23:46] VITALS: BP 115/79; PULSE 98; RESP 22; O2SAT 99
[2024-08-08] VITALS (24 sets, daily range): BP systolic 119–148; BP diastolic 78–103; PULSE 93–105; RESP 16–37; TEMP 36.6–37; O2SAT 95–100; BMI 24.3
[2024-08-08 00:17] LABS: NT Pro B Type Natriuretic Pept 173 pg/mL (19.9-100); Troponin I < 0.012 ng/mL (0.000-0.034)
--- NOTE | 2024-08-08 00:22 | PC.NURSE ---
this rn spoke with Avril from [facility] transfer center to give triage update.
--- NOTE | 2024-08-08 00:29 | ED.GENADULT ---
HPI - General Adult General Chief complaint: Shortness of Breath/Dyspnea Stated complaint: sob - throat ca pt Time Seen by Provider: 08/07/24 22:15 History of Present Illness HPI narrative: Patient is 59-year-old gentleman who presents emergency department chief complaint shortness of breath. Patient has prior history of head neck cancer and gets thoracentesis about every 2 weeks the patient states he is down to about every 3-5 days now require a thoracentesis the patient was placed on oxygen by EMS for comfort and respiratory status. Patient states he feels as though he is filling up with fluid again feels as though he needs a thoracentesis. Related Data Home Medications ?Medication ?Instructions ?Recorded ?Confirmed ?Last Taken ?Type albuterol sulfate 90 mcg/actuation 2 puff inhalation Q4-6H PRN 03/19/24 03/19/24 Unknown History aerosol inhaler Wheezing escitalopram oxalate 10 mg tablet 10 mg PO DAILY 03/19/24 08/08/24 Unknown History oxycodone 5 mg tablet 5 mg PO BID PRN Pain 03/19/24 08/08/24 Unknown History tobramycin 0.3 %-dexamethasone 0.1 1 drp LEFT EYE DAILY 03/19/24 03/19/24 Unknown History % eye drops,suspension cyclobenzaprine 5 mg tablet 5 mg PO Q8H PRN muscle relaxer 08/08/24 08/08/24 Unknown History dexamethasone 4 mg tablet 4 mg PO Q12H 08/08/24 08/08/24 Unknown History ondansetron HCl 8 mg tablet 8 mg PO Q8H PRN nausea and vomiting 08/08/24 08/08/24 Unknown History prochlorperazine maleate 10 mg 10 mg PO Q6H 08/08/24 08/08/24 Unknown History tablet Allergies Allergy/AdvReac Type Severity Reaction Status Date / Time No Known Allergies Allergy Verified 06/03/24 09:21 Review of Systems Review of Systems: A 10 system review of systems was completed on the patient and is negative except for what is stated in the HPI. Nursing and ancillary documentation was reviewed. [facility] Social History Social History Alcohol intake: current Drinks per week: 3 Substance use: never Do You Feel Safe in your Home?: Yes Lack of Transportation: No Lack of Food: Never True Current Housing: I Have Housing Concerned About Future Housing: No Difficulty Paying Gas/Electric Bills: No Difficulty Paying for Meds: No Currently Unemployed: No Education: Bachelor's Degree Difficulty w/ Childcare or Family Care: No Spiritual care concerns: No Exam Narrative: GENERAL: Well-appearing, well-nourished, and in no acute distress. HEAD: Normocephalic, atraumatic. EYES: PERRLA and EOMI. ENT: Nares clear, no rhinorrhea or epistaxis. Mucous membranes moist. NECK: Supple. CHEST: Clear to auscultation. No respiratory distress. HEART: Regular rate and rhythm. No murmur heard. Normal peripheral pulses. ABDOMEN: Soft, nontender, nondistended, normal active bowel sounds. EXTREMITIES: Normal range of motion. No edema. SKIN: Warm, dry, no rash. NEURO: No focal deficits. Alert and oriented x3. PSYCH: Normal mood and affect. Course Vital Signs Vital signs: Vital Signs Pulse Rate 97 08/07/24 22:11 Respiratory Rate 26 H 08/07/24 22:11 Blood Pressure 129/99 H 08/07/24 22:11 Pulse Oximetry 99 08/07/24 22:11 Oxygen Delivery Nasal Cannula 08/07/24 22:11 Oxygen Flow Rate 4 08/07/24 22:11 Temperature 36.6 C 08/08/24 08:01 Pulse Rate 104 H 08/08/24 20:01 Respiratory Rate 27 H 08/08/24 20:01 Blood Pressure 134/103 H 08/08/24 20:01 Pulse Oximetry 96 08/08/24 20:01 Oxygen Delivery Nasal Cannula 08/08/24 18:15 Oxygen Flow Rate 1 08/08/24 18:15 Medical Decision Making [facility] Narrative Medical decision making narrative: Differential diagnosis includes pleural effusion, pneumonia, pneumothorax Chest x-ray showed a significant pleural effusion on the left side that has reaccumulated from previous chest x-rays. We unfortunately do not have Interventional Radiology available on this Friday and due to this the case was discussed with the [facility] transfer center as this is where his oncologist's are based at. It was discussed with Dr. Serrato who accepted the patient to the oncology service currently he is on a wait list The patient has been waiting for a bed since this patient is hemodynamically stable reports he was hospitalist still unsure when they will have a bed available. We will have Interventional Radiology available in the morning due to this the case was discussed with the hospitalist who will admit the patient for observation and plan on doing a thoracentesis in the morning Vital Signs Vital Signs: Vital Signs Pulse Rate 97 08/07/24 22:11 Respiratory Rate 26 H 08/07/24 22:11 Blood Pressure 129/99 H 08/07/24 22:11 Pulse Oximetry 99 08/07/24 22:11 Oxygen Delivery Nasal Cannula 08/07/24 22:11 Oxygen Flow Rate 4 08/07/24 22:11 Temperature 36.6 C 08/08/24 08:01 Pulse Rate 104 H 08/08/24 20:01 Respiratory Rate 27 H 08/08/24 20:01 Blood Pressure 134/103 H 08/08/24 20:01 Pulse Oximetry 96 08/08/24 20:01 Oxygen Delivery Nasal Cannula 08/08/24 18:15 Oxygen Flow Rate 1 08/08/24 18:15 Lab Data 08/07/24 22:34 08/07/24 22:34 Labs: Lab Results 08/07/24 08/08/24 Range/Units 22:34 00:55 WBC 7.3 (4.5-10.0) K/mm3 RBC 3.40 L (4.6-6.20) M/mm3 Hgb 9.6 L D (14.0-18.0) g/dL Hct 30.6 L (42.0-52.0) % MCV 90.0 (80-100) fl MCH 28.2 (26-34) pg MCHC 31.4 L (32-36) g/dl RDW 18.6 H (11.5-14.5) % Plt Count 178 D (150-375) k/mm3 MPV 8.7 (7.4-10.4) fl Immature Gran % (Auto) 2.3 H (0-0.5) % Neut % (Auto) 92.5 H (45.5-73.1) % Lymph % (Auto) 3.3 L (18.3-44.2) % [facility] % (Auto) 1.8 L (2.6-8.5) % Eos % (Auto) 0.0 (0-4.4) % Baso % (Auto) 0.1 L (0.2-1.2) % Lymph # (Auto) 0.24 L (0.9-3.2) K/mm3 [facility] # (Auto) 0.1 (0.1-0.6) K/mm3 Eos # (Auto) 0.0 (0-0.3) K/mm3 Baso # (Auto) 0.0 (0.0-0.1) K/mm3 Abs Immat Gran (auto) 0.17 H (0.00-0.031) K/mm3 Absolute Neuts (auto) 6.7 (1.3-6.7) K/mm3 Absolute Nucleated RBC 0.020 H (0.0-0.012) K/mm3 Band Neutrophils % Not Reportable Nucleated RBC % 0.3 H (0.0-0.2) % Platelet Estimate Adequate (Adequate) Anisocytosis 1+ Tear Drop Cells 1+ Schistocytes None seen PT 13.0 (11.1-14.7) Seconds INR 0.9 APTT 25.3 (22.3-36.8) Seconds Sodium 135 L (137-145) mmol/L Potassium 5.2 H (3.4-5.0) mmol/L Chloride 101 (98-107) mmol/L Carbon Dioxide 25 (22-30) mmol/L Anion Gap 9 (4-12) mmol/L BUN 22 H (9-20) mg/dL Creatinine 0.63 L (0.7-1.3) mg/dL Estim Creat Clear Calc 86 ml/min Estimated GFR > 60 (59 - ) Glucose 132 H (65-110) mg/dL Lactic Acid 4.2 H* 2.2 H (0.7-2.0) mmol/L Calcium 9.0 (8.4-10.2) mg/dL Total Bilirubin 0.4 (0.2-1.3) mg/dL AST 221 H (17-59) U/L ALT 29 (6-50) U/L Alkaline Phosphatase 137 H (38-126) U/L Troponin I < 0.012 (0.000-0.034) ng/mL NT-Pro-B Natriuret Pep 173 H (19.9-100) pg/mL Total Protein 7.0 (6.3-8.2) g/dL Albumin 3.9 (3.5-5.1) g/dL Discharge Plan Discharge Clinical Impression: Pleural effusion, Squamous cell carcinoma Patient Disposition: Acute Care Hospital Condition: Stable Patient Language: Malay Prescriptions: No Action albuterol sulfate 90 mcg/actuation HFA aerosol inhaler 2 puff INHALATION Q4-6H PRN (Reason: Wheezing) tobramycin-dexamethasone 0.3-0.1 % drops,suspension 1 drp LEFT EYE DAILY oxycodone 5 mg tablet 5 mg PO BID PRN (Reason: Pain) Rx Instructions: Pt. does not use much as it causes constipation & fatigue escitalopram oxalate 10 mg tablet 10 mg PO DAILY amoxicillin-pot clavulanate 875-125 mg tablet 1 tablet PO Q12H Qty: 10 0RF cyclobenzaprine 5 mg tablet 5 mg PO Q8H PRN (Reason: muscle relaxer ) dexamethasone 4 mg tablet 4 mg PO Q12H ondansetron HCl 8 mg tablet 8 mg PO Q8H PRN (Reason: nausea and vomiting) prochlorperazine maleate 10 mg tablet 10 mg PO Q6H Follow-up/Referrals: Vivek Hernandez M.D. [Primary Care Provider] - Time of Disposition: 00:33
[2024-08-08 00:42] LABS: Reflex Lactic Acid Yes or No Add Lactic
[2024-08-08 01:10] LABS: Lactic Acid 2.2 mmol/L (0.7-2.0)
--- NOTE | 2024-08-08 02:04 | PC.NURSE ---
this rn updated home medications per patient visitor list.
--- NOTE | 2024-08-08 03:02 | PC.NURSE ---
Pt placed on hospital bed at this time. Repositioned, pillows provided, call light within reach. Pt VS updated on chart. Updated pt on status of awaiting bed placement at [facility].
--- NOTE | 2024-08-08 08:26 | PC.NURSE ---
Meal tray ordered for pt. by this RN.
--- NOTE | 2024-08-08 08:52 | PC.NURSE ---
[facility] called for pt update
--- NOTE | 2024-08-08 19:14 | PC.NURSE ---
Report received from LAURA Rivera. Assumed care of patient at this time.
[2024-08-08 20:48] LABS: Hemoglobin 9.5 g/dL (14.0-18.0); Immature Granulocyte Absolute 0.05 K/mm3 (0.00-0.031); Immature Granulocyte Percent A 0.7 % (0-0.5); Lymphocytes Absolute Auto 0.17 K/mm3 (0.9-3.2); Lymphocytes Percent Auto 2.4 % (18.3-44.2); Mean Corpuscular HGB Conc 31.7 g/dl (32-36); Mean Corpuscular Hemoglobin 28.5 pg (26-34); Mean Corpuscular Volume 90.1 fl (80-100); Mean Platelet Volume 8.5 fl (7.4-10.4); Monocytes Absolute Auto 0.2 K/mm3 (0.1-0.6); Monocytes Percent Auto 2.4 % (2.6-8.5); Neutrophils Absolute Auto 6.6 K/mm3 (1.3-6.7); Neutrophils Percent Auto 94.5 % (45.5-73.1); Nucleated Red Blood Cells Perc 0.3 % (0.0-0.2); Platelet Count Result 182 k/mm3 (150-375); Red Blood Count 3.33 M/mm3 (4.6-6.20); Red Cell Distribution Width 18.2 % (11.5-14.5)
[2024-08-08 21:09] LABS: INR 0.9; Prothrombin Time 12.7 Seconds (11.1-14.7)
[2024-08-08 21:10] LABS: Partial Thromboplastin Time 22.8 Seconds (22.3-36.8)
--- NOTE | 2024-08-08 21:13 | ADMGEN ---
This patient, Kiet Yousif, was admitted to [facility] Surg Room 321-02. Patient/family oriented to hospital policies and general routines including ID bracelet, bed and alarms, visiting hours, pain management, procedures, bathroom and other care routines, personal items, smoking policy, room service/diet, and visiting hours. Information on how to activate the Rapid Response Team has been discussed. Patient/Family are encouraged to report perceived risks to care and to ask questions if they do not understand what they are told or what they should do.
--- NOTE | 2024-08-08 22:50 | P.HP_ITS ---
H&P: HPI History of Present Illness Date/Time: 08/08/24 22:50 Chief Complaint: 1. Shortness of breath Narrative: Kiet Yousif is a 59 M with a MHx significant for depression, SCC Lung, While he receives care at [facility] for SCC lung, he has been developing recurrent pleural effusions for which he has been undergoing thoracentesis, with the last episode being a few days ago; He remained stable until about 2-3 days ago when he developed symptoms of malaise, fatigue and dyspnea with minimal exertion and at rest; his symptoms are alleviated by rest; associated with anxiety, and a restriction of his ADLs. He denies hemolysis, bipedal edema, PND, Orthopnea, fevers, chills, chest pain or dizziness. He states that there are plans underway to pursue a pleurX catheter placement and possible pleurodesis in the future. 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 He does have a remote smoking hx; his father and paternal uncle did suffer from lung Ca. Work-up findings: WBC 7; HB 9.5; PLT 183; MCV 90 PT 12.7; INR ; APTT 22 WBC 7; Hb 9.5; MCV 90; PLT 182 PT 12; INR 0.9; APTT 22 Na 135; K 5.2; Cl 101; CO2 25; A/G 9; BUN 22; CR 0.6; GFR >60; LA: 4.2 >> 2.2 AST 221; ALT 29; ALP 137; T.Bili 0.4 Troponin I <0.012; BNP 173 CXR: Large left pleural effusion involving almost all of the left hemithorax wi th adjacent atelectasis versus pneumonia. Right basilar atelectasis versus pneumonia. Kiet Yousif will be admitted, evaluated and managed for left-sided pleural effusion with probable pneumonia Review of Systems Review of Systems: All systems reviewed & are unremarkable except as noted in HPI and below PMFSH Social History Social History Smoking status: Former smoker Alcohol intake: never Drinks per week: 3 Substance use: never Do You Feel Safe in your Home?: Yes Lack of Transportation: No Lack of Food: Never True Current Housing: I Have Housing Concerned About Future Housing: No Difficulty Paying Gas/Electric Bills: No Difficulty Paying for Meds: No Currently Unemployed: No Education: Bachelor's Degree Difficulty w/ Childcare or Family Care: No Spiritual care concerns: No Meds Home Medications and Allergies Home Medications ?Medication ?Instructions ?Recorded ?Confirmed ?Type albuterol sulfate 90 mcg/actuation 2 puff inhalation Q4-6H PRN 03/19/24 08/08/24 History aerosol inhaler Wheezing escitalopram oxalate 10 mg tablet 10 mg PO DAILY 03/19/24 08/08/24 History oxycodone 5 mg tablet 5 mg PO BID PRN Pain 03/19/24 08/08/24 History tobramycin 0.3 %-dexamethasone 0.1 1 drp LEFT EYE DAILY 03/19/24 08/08/24 History % eye drops,suspension cyclobenzaprine 5 mg tablet 5 mg PO Q8H PRN muscle relaxer 08/08/24 08/08/24 History dexamethasone 4 mg tablet 4 mg PO Q12H 08/08/24 08/08/24 History ondansetron HCl 8 mg tablet 8 mg PO Q8H PRN nausea and vomiting 08/08/24 08/08/24 History prochlorperazine maleate 10 mg 10 mg PO Q6H 08/08/24 08/08/24 History tablet Allergies Allergy/AdvReac Type Severity Reaction Status Date / Time No Known Allergies Allergy Verified 06/03/24 09:21 Vital Signs Vital Signs - 24 hr 08/07/24 23:25 08/07/24 23:31 08/07/24 23:46 Temperature Pulse Rate 97 97 98 Respiratory Rate 20 21 H 22 H Blood Pressure 116/89 118/86 115/79 Pulse Oximetry 98 99 99 Oxygen Delivery Oxygen Flow Rate 08/08/24 00:01 08/08/24 00:02 08/08/24 01:16 Temperature 98.6 F Pulse Rate 100 98 103 H Respiratory Rate 37 H 16 34 H Blood Pressure 134/93 H 134/93 H 123/91 H Pulse Oximetry 98 100 98 Oxygen Delivery Oxygen Flow Rate 08/08/24 01:31 08/08/24 02:01 08/08/24 03:01 Temperature Pulse Rate 104 H 104 H 100 Respiratory Rate 27 H 18 25 H Blood Pressure 126/85 137/96 H 119/78 Pulse Oximetry 98 97 99 Oxygen Delivery Oxygen Flow Rate 08/08/24 03:04 08/08/24 04:01 08/08/24 05:01 Temperature Pulse Rate 98 97 103 H Respiratory Rate 20 19 32 H Blood Pressure 119/78 140/93 H 129/91 H Pulse Oximetry 98 99 99 Oxygen Delivery Oxygen Flow Rate 08/08/24 06:01 08/08/24 07:01 08/08/24 07:28 Temperature Pulse Rate 100 96 93 Respiratory Rate 29 H 20 22 H Blood Pressure 148/94 H 130/92 H 130/92 H Pulse Oximetry 97 99 97 Oxygen Delivery Oxygen Flow Rate 08/08/24 08:00 08/08/24 08:01 08/08/24 09:22 Temperature 97.8 F Pulse Rate 98 99 Respiratory Rate 20 16 Blood Pressure 135/93 H Pulse Oximetry 97 97 98 Oxygen Delivery Nasal Cannula Oxygen Flow Rate 2 08/08/24 11:49 08/08/24 14:07 08/08/24 14:47 Temperature Pulse Rate 100 102 H 102 H Respiratory Rate 18 16 18 Blood Pressure 132/93 H 146/93 H 146/93 H Pulse Oximetry 98 97 97 Oxygen Delivery Oxygen Flow Rate 08/08/24 18:15 08/08/24 18:19 08/08/24 20:01 Temperature Pulse Rate 105 H 104 H Respiratory Rate 25 H 27 H Blood Pressure 139/95 H 134/103 H Pulse Oximetry 95 95 96 Oxygen Delivery Nasal Cannula Oxygen Flow Rate 1 08/08/24 20:32 08/08/24 21:22 Temperature 98.2 F Pulse Rate 102 H 99 Respiratory Rate 27 H Blood Pressure 134/103 H 139/97 H Pulse Oximetry 95 97 Oxygen Delivery Oxygen Flow Rate Exam Const: General: comfortable and no acute distress HENMT: Ears: TM's normal bilaterally Face/Nose/Sinus: Normal nares present Eyes: General: appearance normal, both eyes and all related structures Sclera: sclerae normal Pupils: Equal, round and reactive pupils present Neck: Neck: supple Thyroid: thyroid normal Resp: Effort & Inspection: normal respiratory effort Auscultation: diminished lung sounds on the left and diffuse Other: Left > Right Cardio: Rate: regular rate Rhythm: regular rhythm Skin: General skin exam: normal color Lesions: lesion noted Neuro: General: gait normal Speech: normal speech Motor exam (neuro): 5/5 motor strength present throughout Extrem: General: normal to inspection Psych: Mental Status: mental status grossly normal Affect: normal affect H&P: Results Labs Labs: Short CBC 08/07/24 08/08/24 Range/Units 22:34 20:42 WBC 7.3 7.0 (4.5-10.0) K/mm3 Hgb 9.6 L D 9.5 L (14.0-18.0) g/dL Hct 30.6 L 30.0 L (42.0-52.0) % Plt Count 178 D 182 (150-375) k/mm3 BMP 08/07/24 22:34 Sodium 135 L Potassium 5.2 H Chloride 101 Carbon Dioxide 25 BUN 22 H Creatinine 0.63 L Glucose 132 H Calcium 9.0 Cardiac Enzymes 08/07/24 Range/Units 22:34 Troponin I < 0.012 (0.000-0.034) ng/mL Liver Function 08/07/24 Range/Units 22:34 Total Bilirubin 0.4 (0.2-1.3) mg/dL AST 221 H (17-59) U/L ALT 29 (6-50) U/L Alkaline Phosphatase 137 H (38-126) U/L Albumin 3.9 (3.5-5.1) g/dL Assessment and Plan Assessment and plan (1) Pleural effusion: Code(s): J90 - Pleural effusion, not elsewhere classified Status: Acute (2) Squamous cell carcinoma: Status: Acute Plan Acute and principal conditions 1. Left sided pleural effusion. Recurrent. 2. Lactic acidemia. 3. Probable Pneumonia Rx: * Thoracentesis * Supplemental oxygen * Empiric Zosyn Chronic and stable conditions * SCC Lung. recurrent pleural effusion * Recurrent depression Miscellaneous care. * Code status. Full * Nutrition. NPO @ midnight * VTE prophylaxis. SCDs; [facility] Quality VTE Prophylaxis VTE prophylaxis: mechanical ordered and pharmacologic ordered Hospitalist MIPS Advance Care Plan I have confirmed that the patient's Advanced Care Plan is present, code status is documented, or surrogate decision maker is listed in patient medical record.: Yes Medication Reconciliation I have utilized all available resources to obtain, update and review the patients current medications (includes all prescriptions, OTC, herbals, cannabis, and nutritional supplements).: Yes The patient is not eligible for med reconciliation; the patient is in a emergent medical situation where delaying treatment would jeopardize the patients health.: Yes
[2024-08-08 23:47] LABS: Basophils Percent Auto 0.1 % (0.2-1.2); Hematocrit 29.9 % (42.0-52.0); Hemoglobin 9.5 g/dL (14.0-18.0); Immature Granulocyte Absolute 0.08 K/mm3 (0.00-0.031); Immature Granulocyte Percent A 1.2 % (0-0.5); Lymphocytes Absolute Auto 0.24 K/mm3 (0.9-3.2); Lymphocytes Percent Auto 3.5 % (18.3-44.2); Mean Corpuscular HGB Conc 31.8 g/dl (32-36); Mean Corpuscular Hemoglobin 28.4 pg (26-34); Mean Corpuscular Volume 89.3 fl (80-100); Mean Platelet Volume 8.8 fl (7.4-10.4); Monocytes Absolute Auto 0.1 K/mm3 (0.1-0.6); Monocytes Percent Auto 1.8 % (2.6-8.5); Neutrophils Absolute Auto 6.3 K/mm3 (1.3-6.7); Neutrophils Percent Auto 93.4 % (45.5-73.1); Nucleated Red Blood Cells Perc 0.3 % (0.0-0.2); Platelet Count Result 183 k/mm3 (150-375); Red Blood Count 3.35 M/mm3 (4.6-6.20); Red Cell Distribution Width 18.2 % (11.5-14.5); White Blood Count 6.8 K/mm3 (4.5-10.0)
[2024-08-08 23:57] LABS: Alanine Aminotransferase 30 U/L (6-50); Albumin Level 3.8 g/dL (3.5-5.1); Alkaline Phosphatase 120 U/L (38-126); Anion Gap 12 mmol/L (4-12); Aspartate Amino Transferase 249 U/L (17-59); Bilirubin,Total 0.4 mg/dL (0.2-1.3); Blood Urea Nitrogen 16 mg/dL (9-20); Calcium 8.8 mg/dL (8.4-10.2); Carbon Dioxide 21 mmol/L (22-30); Chloride 98 mmol/L (98-107); Estimated CRCL calculation 95 ml/min; Estimated Glomerular Filt Rate > 60; Glucose 125 mg/dL (65-110); Potassium 4.8 mmol/L (3.4-5.0); Sodium 131 mmol/L (137-145)
[2024-08-08 23:58] LABS: Lactic Acid Reflex 3.3 mmol/L (0.7-2.0)
[2024-08-09 00:03] VITALS: PULSE 94
[2024-08-09 00:11] LABS: Hypochromasia 1+; Platelet Estimate Adequate (Adequate)
[2024-08-09 00:12] LABS: Anisocytosis 1+; Microcytosis 1+ (NORMAL)
[2024-08-09 00:13] LABS: Bite Cells 1+; Crenated RBC 1+; Schistocytes None Seen
[2024-08-09] MEDS: SODIUM CHLORIDE 0.9% IV 1,000 ML 50 ML IV CONT (00:26)
[2024-08-09] MEDS: PIPERACILLN/TAZ 3.375GM/NS50ML 3.375 GM/50 ML BAG IVPB ×3 (00:28→11:25)
[2024-08-09 01:45] LABS: Reflex Lactic Acid Yes or No Add Lactic
[2024-08-09 04:03] VITALS: PULSE 89
[2024-08-09 05:11] LABS: Immature Granulocyte Absolute 0.13 K/mm3 (0.00-0.031); Immature Granulocyte Percent A 1.9 % (0-0.5); Lymphocytes Absolute Auto 0.32 K/mm3 (0.9-3.2); Lymphocytes Percent Auto 4.8 % (18.3-44.2); Mean Corpuscular HGB Conc 32.3 g/dl (32-36); Mean Corpuscular Hemoglobin 28.8 pg (26-34); Mean Corpuscular Volume 89.3 fl (80-100); Mean Platelet Volume 8.3 fl (7.4-10.4); Monocytes Absolute Auto 0.2 K/mm3 (0.1-0.6); Monocytes Percent Auto 2.5 % (2.6-8.5); Neutrophils Absolute Auto 6.1 K/mm3 (1.3-6.7); Neutrophils Percent Auto 90.8 % (45.5-73.1); Platelet Count Result 169 k/mm3 (150-375); Red Blood Count 3.47 M/mm3 (4.6-6.20); White Blood Count 6.7 K/mm3 (4.5-10.0)
[2024-08-09 05:20] LABS: Lactic Acid 2.3 mmol/L (0.7-2.0)
[2024-08-09 05:21] LABS: Alanine Aminotransferase 31 U/L (6-50); Albumin Level 3.8 g/dL (3.5-5.1); Alkaline Phosphatase 121 U/L (38-126); Anion Gap 11 mmol/L (4-12); Aspartate Amino Transferase 255 U/L (17-59); Bilirubin,Total 0.5 mg/dL (0.2-1.3); Blood Urea Nitrogen 16 mg/dL (9-20); Calcium 8.8 mg/dL (8.4-10.2); Carbon Dioxide 24 mmol/L (22-30); Chloride 97 mmol/L (98-107); Estimated CRCL calculation 81 ml/min; Estimated Glomerular Filt Rate > 60; Glucose 109 mg/dL (65-110); Potassium 5.2 mmol/L (3.4-5.0); Sodium 132 mmol/L (137-145)
[2024-08-09 05:42] VITALS: BP 142/95; PULSE 92; RESP 24; TEMP 36; O2SAT 97
[2024-08-09 05:51] LABS: Platelet Estimate Adequate (Adequate)
[2024-08-09 05:52] LABS: Anisocytosis 1+; Schistocytes None Seen
[2024-08-09 08:00] VITALS: PULSE 92; PULSE 93; O2SAT 95
[2024-08-09 10:42] LABS: Magnesium 2.2 mg/dL (1.6-2.3)
[2024-08-09] MEDS: TOBRAMYCIN/DEXAMETHASONE OP 2.5 ML BTL 1 DROP LEFT EYE (11:23)
[2024-08-09 12:00] VITALS: PULSE 97
[2024-08-09 12:03] VITALS: BMI 24.3
--- NOTE | 2024-08-09 12:29 | PM.CNPUL ---
Assessment and Plan Assessment and plan (1) Malignant pleural effusion: Code(s): J91.0 - Malignant pleural effusion Status: Acute Assessment and Plan: Patient with left malignant pleural effusion diagnosed at [facility] on 03/22/2024. Patient has been undergoing approximately weekly outpatient thoracentesis at [facility] while they are in the process of scheduling him for PleurX catheter through Interventional Radiology. Patient presents now with shortness of breath and underwent thoracentesis of 1150 mL earlier today and currently breathing back to normal. Post procedure x-ray demonstrates an improved but large left pleural effusion occupying approximately 50% of the left hemithorax. There is no pneumothorax. The is in the room and she has spoken to Kaykay and Dr. Garcia office. She has been discussing the case with Interventional Radiology who performs a PleurX catheters. She has reviewed the case with she left who will review the case with their physicians and schedule him for outpatient procedure. I recommend placement of a PleurX catheter as soon as possible. We discussed inpatient transfer versus continuing with the outpatient scheduling. At this time the family wishes to continue with the outpatient scheduling process and I feel the patient is clinically stable and ready for discharge today. I do not feel he has an infection I would not discharge him on any antibiotics. I have told the family that if he has shortness of breath in the future that he should contact his [facility] team and or drive himself to [facility] emergency department so that he could be admitted to their hospital so that the definitive procedure could be performed. Discussed with the hospitalist team who informed me that the patient is scheduled for PleurX catheter placement at [facility] on 08/13/2024. Will sign off. Call with questions. History of Present Illness History of Present Illness Consult date: 08/09/24 Chief complaint: Recurrent pleural effusion Narrative: 08/09/2024: This is a new pulmonary consult for a malignant left pleural effusion. 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 Patient had a thoracentesis at our hospital on 03/20/2024 with squamous cell cancer. And 10/02/2023 scan showed multiple bony lytic lesions. Patient is under the care of Oncology at [facility] site minDr. Abdirashid. he underwent immunotherapy treatment every 3 weeks which failed and he is started on chemotherapy on 08/05/2024. Patient has weekly thoracentesis performed last of which was on 08/04/2024 at [facility] done as an outpatient. The patient was in the process of being scheduled for an outpatient PleurX catheter at [facility]. Patient presented to the emergency department on 08/08/2024 with shortness of breath and a large left pleural effusion. He was referred to [facility] but no beds were available So he was admitted to [facility]. Patient was admitted to the hospital and had a left thoracentesis today with 1150 mL of dark red fluid removed. Postprocedure chest x-ray shows a continued large left pleural effusion. 08/09/2024 current: Currently the patient tells me he is breathing better and he has no shortness of breath at rest. Overall he feels like he is breathing back to normal. He denies fever, chills, rigors, cough, phlegm production or hemoptysis. The is in the room and she has spoken to Kaykay and Dr. Garcia office. She has been discussing the case with Interventional Radiology who performs a PleurX catheters. She has reviewed the case with she left who will review the case with their physicians and schedule him for outpatient procedure. Review of Systems Constitutional: Constitutional: Reports no additional constitutional complaints Eyes: Eyes: Reports no additional eye complaints ENT: Reports system reviewed and no additional complaints, except as documented Cardiovascular: Cardiovascular: Reports no additional cardiovascular complaints Respiratory: Respiratory: Reports no additional respiratory complaints Gastrointestinal: Gastrointestinal: Reports no additional gastrointestinal complaints Musculoskeletal: Musculoskeletal: Reports no additional musculoskeletal complaints Neurologic: Reports system reviewed and no additional complaints, except as documented Psychiatric: Psychiatric: Reports no additional psychiatric complaints Endocrine: Endocrine: Reports no additional endocrine complaints Hematologic/Lymphatic: Hematologic/Lymphatic: Reports no additional hematologic/lymphatic complaints Allergic/Immunologic: Allergic/Immunologic: Reports no additional allergic/immunologic complaints [facility] Social History Social History Smoking status: Former smoker Alcohol intake: never Drinks per week: 3 Substance use: never Do You Feel Safe in your Home?: Yes Lack of Transportation: No Lack of Food: Never True Current Housing: I Have Housing Concerned About Future Housing: No Difficulty Paying Gas/Electric Bills: No Difficulty Paying for Meds: No Currently Unemployed: No Education: Bachelor's Degree Difficulty w/ Childcare or Family Care: No Spiritual care concerns: No Meds Home Medications and Allergies Home Medications ?Medication ?Instructions ?Recorded ?Confirmed ?Type albuterol sulfate 90 mcg/actuation 2 puff inhalation Q4-6H PRN 03/19/24 08/08/24 History aerosol inhaler Wheezing escitalopram oxalate 10 mg tablet 10 mg PO DAILY 03/19/24 08/08/24 History oxycodone 5 mg tablet 5 mg PO BID PRN Pain 03/19/24 08/08/24 History tobramycin 0.3 %-dexamethasone 0.1 1 drp LEFT EYE DAILY 03/19/24 08/08/24 History % eye drops,suspension cyclobenzaprine 5 mg tablet 5 mg PO Q8H PRN muscle relaxer 08/08/24 08/08/24 History dexamethasone 4 mg tablet 4 mg PO Q12H 08/08/24 08/08/24 History ondansetron HCl 8 mg tablet 8 mg PO Q8H PRN nausea and vomiting 08/08/24 08/08/24 History prochlorperazine maleate 10 mg 10 mg PO Q6H 08/08/24 08/08/24 History tablet Allergies Allergy/AdvReac Type Severity Reaction Status Date / Time No Known Allergies Allergy Verified 06/03/24 09:21 Vital Signs Vital Signs - 24 hr 08/08/24 14:07 08/08/24 14:47 08/08/24 18:15 Temperature Pulse Rate 102 H 102 H Respiratory Rate 16 18 Blood Pressure 146/93 H 146/93 H Pulse Oximetry 97 97 95 Oxygen Delivery Nasal Cannula Oxygen Flow Rate 1 08/08/24 18:19 08/08/24 20:01 08/08/24 20:32 Temperature Pulse Rate 105 H 104 H 102 H Respiratory Rate 25 H 27 H 27 H Blood Pressure 139/95 H 134/103 H 134/103 H Pulse Oximetry 95 96 95 Oxygen Delivery Oxygen Flow Rate 08/08/24 21:22 08/08/24 23:00 08/09/24 00:03 Temperature 36.8 C Pulse Rate 99 94 Respiratory Rate Blood Pressure 139/97 H Pulse Oximetry 97 97 Oxygen Delivery Nasal Cannula Oxygen Flow Rate 1 08/09/24 04:03 08/09/24 05:42 08/09/24 08:00 Temperature 36.0 C L Pulse Rate 89 92 92 Respiratory Rate 24 H Blood Pressure 142/95 H Pulse Oximetry 97 95 Oxygen Delivery Nasal Cannula Oxygen Flow Rate 1 08/09/24 08:00 Temperature Pulse Rate 93 Respiratory Rate Blood Pressure Pulse Oximetry Oxygen Delivery Oxygen Flow Rate Exam Const: General: cooperative, healthy appearing and comfortable Orientation/consciousness: oriented to person, oriented to place and oriented to time HENMT: Head: normal to inspection Ears: hearing grossly normal bilaterally Other: left neck lymph nodes positive Eyes: General: appearance normal, both eyes and all related structures Neck: Neck: normal visual inspection Chest: Chest palpation & inspection: normal inspection of the chest Resp: Effort & Inspection: normal respiratory effort and able to speak in complete sentences Auscultation: no crackles, no rales, no rhonchi, no wheezes and diminished lung sounds Other: decreased breath sounds left lung. Cardio: Jugular venous distension: no JVD GI: Inspection: normal to inspection GI Palp: No abdominal tenderness Skin: General skin exam: normal color Neuro: General: oriented to person, oriented to place and oriented to time Extrem: General: normal to inspection Psych: Appearance: grossly normal Results Laboratory Findings 08/09/24 04:59 08/09/24 04:59 ABG, PT/INR, D-dimer: PT/INR, D-dimer PT 12.7 Seconds (11.1-14.7) 08/08/24 20:42 INR 0.9 08/08/24 20:42 Abnormal lab findings: Abnormal Labs 08/07/24 08/08/24 08/08/24 22:34 00:55 20:42 RBC 3.40 L 3.33 L Hgb 9.6 L D 9.5 L Hct 30.6 L 30.0 L MCHC 31.4 L 31.7 L RDW 18.6 H 18.2 H Immature Gran % (Auto) 2.3 H 0.7 H Neut % (Auto) 92.5 H 94.5 H Lymph % (Auto) 3.3 L 2.4 L Robertson % (Auto) 1.8 L 2.4 L Baso % (Auto) 0.1 L 0.0 L Lymph # (Auto) 0.24 L 0.17 L Abs Immat Gran (auto) 0.17 H 0.05 H Absolute Nucleated RBC 0.020 H 0.020 H Nucleated RBC % 0.3 H 0.3 H Sodium 135 L Potassium 5.2 H Chloride Carbon Dioxide BUN 22 H Creatinine 0.63 L Glucose 132 H Lactic Acid 4.2 H* 2.2 H AST 221 H Alkaline Phosphatase 137 H NT-Pro-B Natriuret Pep 173 H 08/08/24 08/09/24 08/09/24 23:25 04:58 04:59 RBC 3.35 L 3.47 L Hgb 9.5 L 10.0 L Hct 29.9 L 31.0 L MCHC 31.8 L RDW 18.2 H 18.0 H Immature Gran % (Auto) 1.2 H 1.9 H Neut % (Auto) 93.4 H 90.8 H Lymph % (Auto) 3.5 L 4.8 L Robertson % (Auto) 1.8 L 2.5 L Baso % (Auto) 0.1 L 0.0 L Lymph # (Auto) 0.24 L 0.32 L Abs Immat Gran (auto) 0.08 H 0.13 H Absolute Nucleated RBC 0.020 H Nucleated RBC % 0.3 H Sodium 131 L 132 L Potassium 5.2 H Chloride 97 L Carbon Dioxide 21 L BUN Creatinine 0.56 L 0.67 L Glucose 125 H Lactic Acid 3.3 H 2.3 H AST 249 H 255 H Alkaline Phosphatase NT-Pro-B Natriuret Pep Diagnostic Findings Additional studies: ITS Impressions Chest X-Ray 08/08/24 06:27 IMPRESSION: Large left pleural effusion involving almost all of the left hemithorax with adjacent atelectasis versus pneumonia. Right basilar atelectasis versus pneumonia. Thoracentesis Ultrasound 08/09/24 11:50 IMPRESSION: 1. Successful ultrasound-guided thoracentesis yielding 1150 mL of dark reddish fluid. Chest X-Ray 08/09/24 11:51 IMPRESSION: 1. Improved aeration in the left lung with decrease in size of a now small to moderate left pleural effusion postthoracentesis. No pneumothorax. 2. Airspace opacities in the left mid and lower and right lower lung zones which could represent atelectasis, pneumonia or malignancy.
--- NOTE | 2024-08-09 12:44 | PM.DS ---
DS: Admitting Diagnosis Discharge Date 08/09/2024 Admitting Diagnosis shortness of breath DS: Discharge Diagnosis Discharge Diagnosis (1) Malignant pleural effusion: Code(s): J91.0 - Malignant pleural effusion Status: Acute (2) Squamous cell carcinoma: Status: Acute DS: Summary Hospital Course Hospital Course: Chest X-ray showed: IMPRESSION: Large left pleural effusion involving almost all of the left hemithorax with adjacent atelectasis versus pneumonia. Right basilar atelectasis versus pneumonia. Ultrasound guided thoracentesis of left lung done today with removal of 1150 mL of dark reddish fluid. Post Chest-X-ray showed: IMPRESSION: 1. Improved aeration in the left lung with decrease in size of a now small to moderate left pleural effusion postthoracentesis. No pneumothorax. 2. Airspace opacities in the left mid and lower and right lower lung zones which could represent atelectasis, pneumonia or malignancy. Muck Miner seen patient, patient does not need antibiotics. Patient is seen by oncology at [facility], patient to have pleurx placed on Friday (appointment made today). Status at Discharge Functional status at discharge: independent ambulation Overall status at discharge: patient is progressing back to baseline Time Spent with Patient Time attestation: Total time spent providing and/or coordinating discharge services: Time spent: Greater than 30 minutes Exam Const: General: comfortable and no acute distress Resp: Effort & Inspection: normal respiratory effort Other: Diminished left lung Cardio: Rate: regular rate Rhythm: regular rhythm GI: GI Palp: Yes Soft to palpation Auscultation: normal bowel sounds Extrem: General: no pedal edema Psych: Mental Status: mental status grossly normal Affect: normal affect DS: Data Data Completed and Pending Labs on day of discharge: Labs from last 24 hours 08/09/24 08/09/24 08/08/24 04:59 04:58 23:25 WBC 6.7 6.8 RBC 3.47 L 3.35 L Hgb 10.0 L 9.5 L Hct 31.0 L 29.9 L MCV 89.3 89.3 MCH 28.8 28.4 MCHC 32.3 31.8 L RDW 18.0 H 18.2 H Plt Count 169 183 MPV 8.3 8.8 Immature Gran % (Auto) 1.9 H 1.2 H Neut % (Auto) 90.8 H 93.4 H Lymph % (Auto) 4.8 L 3.5 L Rowan % (Auto) 2.5 L 1.8 L Eos % (Auto) 0.0 0.0 Baso % (Auto) 0.0 L 0.1 L Lymph # (Auto) 0.32 L 0.24 L Rowan # (Auto) 0.2 0.1 Eos # (Auto) 0.0 0.0 Baso # (Auto) 0.0 0.0 Abs Immat Gran (auto) 0.13 H 0.08 H Absolute Neuts (auto) 6.1 6.3 Absolute Nucleated RBC 0.000 0.020 H Band Neutrophils % Not Reportable Not Reportable Nucleated RBC % 0.0 0.3 H Platelet Estimate Adequate Adequate Hypochromasia 1+ Anisocytosis 1+ 1+ Microcytosis 1+ Bite Cells 1+ Crenated Cell 1+ Schistocytes None seen None seen PT INR APTT Sodium 132 L 131 L Potassium 5.2 H 4.8 Chloride 97 L 98 Carbon Dioxide 24 21 L Anion Gap 11 12 BUN 16 16 Creatinine 0.67 L 0.56 L Estim Creat Clear Calc 81 95 Estimated GFR > 60 > 60 Glucose 109 125 H Lactic Acid 2.3 H 3.3 H Calcium 8.8 8.8 Magnesium 2.2 Total Bilirubin 0.5 0.4 AST 255 H 249 H ALT 31 30 Alkaline Phosphatase 121 120 Total Protein 7.0 7.0 Albumin 3.8 3.8 08/08/24 20:42 WBC 7.0 RBC 3.33 L Hgb 9.5 L Hct 30.0 L MCV 90.1 MCH 28.5 MCHC 31.7 L RDW 18.2 H Plt Count 182 MPV 8.5 Immature Gran % (Auto) 0.7 H Neut % (Auto) 94.5 H Lymph % (Auto) 2.4 L Rowan % (Auto) 2.4 L Eos % (Auto) 0.0 Baso % (Auto) 0.0 L Lymph # (Auto) 0.17 L Rowan # (Auto) 0.2 Eos # (Auto) 0.0 Baso # (Auto) 0.0 Abs Immat Gran (auto) 0.05 H Absolute Neuts (auto) 6.6 Absolute Nucleated RBC 0.020 H Band Neutrophils % Nucleated RBC % 0.3 H Platelet Estimate Hypochromasia Anisocytosis Microcytosis Bite Cells Crenated Cell Schistocytes PT 12.7 INR 0.9 APTT 22.8 Sodium Potassium Chloride Carbon Dioxide Anion Gap BUN Creatinine Estim Creat Clear Calc Estimated GFR Glucose Lactic Acid Calcium Magnesium Total Bilirubin AST ALT Alkaline Phosphatase Total Protein Albumin Discharge Plan Discharge Attending physician on discharge: Tong Espinal Consulting providers: Shaggy Johnson Discharging Clinician: Amairani Goldsmith Anticipated Discharge Date/Time: 08/09/24 14:00 Patient Disposition: Home Activity: may shower and as tolerated Diet: regular Discharge Instructions: Follow up with [facility] oncologist. Pleur X catheter on Friday. Thoracentesis today removed 1,150 ml. Report to provider any worsening shortness of breath, fever >101, or sputum with color. Thank you for entrusting [facility] with your healthcare! Patient Instructions: Antibiotic Form, Pleural Effusion (DC) Patient Language: Nigerian Stand Alone Forms: General Discharge Information Follow-up/Referrals: Vivek Hernandez M.D. [Primary Care Provider] - 1 Week Discharge Medications: Continued albuterol sulfate 90 mcg/actuation HFA aerosol inhaler 2 puff INHALATION Q4-6H PRN (Reason: Wheezing) tobramycin-dexamethasone 0.3-0.1 % drops,suspension 1 drp LEFT EYE DAILY oxycodone 5 mg tablet 5 mg PO BID PRN (Reason: Pain) Rx Instructions: Pt. does not use much as it causes constipation & fatigue escitalopram oxalate 10 mg tablet 10 mg PO DAILY cyclobenzaprine 5 mg tablet 5 mg PO Q8H PRN (Reason: muscle relaxer ) dexamethasone 4 mg tablet 4 mg PO Q12H ondansetron HCl 8 mg tablet 8 mg PO Q8H PRN (Reason: nausea and vomiting) prochlorperazine maleate 10 mg tablet 10 mg PO Q6H Date of admission: 08/08/24 19:59 Primary Care Provider: Vivek Hernandez Admitting Provider: Lg Carter Attending physician on admission: Lg Carter Condition: Stable Hospitalist MIPS Heart Failure (Exclusion) Patient has history of Heart Transplant or Left Ventricular Assistive Device?: No IF YES, STOP HERE Heart Failure (Qualifier) Patient has current or prior documentation of LVEF less than or equal to 40%, or mod/servere depressed LVSF?: No IF NO, STOP HERE
--- NOTE | 2024-08-09 13:19 | P.CDI_ITS ---
CDI Query Clarification Request BMI: 24.3 Nutritional Diagnostic Statement: Please refer to the comprehensive nutrition assessment for further information. If you agree with diagnosis of Moderate protein calorie malnutrition related to inadequate energy intake as evidenced by pt report or reduced appetite and intake, a significant weight loss of -13% x 5 months, and NFPE findings of moderate subcutaneous fat loss and muscle wasting. Please specify severity if known: * Mild * Moderate * Severe * Other/Unknown <Evangelina Patel RN - Last Filed: 08/09/24 13:20> Provider Comments Protein normal at 7.0. BMI 24.3. Disagree. <Amairani Goldsmith APRN - Last Filed: 08/09/24 13:52>
[2024-08-09 13:31] LABS: Pleural fluid source Pleural fluid
[2024-08-09 13:32] LABS: Appearance Pleural Fluid Cloudy (Clear); Color Pleural Fluid Red (Colorless); Lymphocytes Pleural Fluid 41 %; Macrophages Pleural Fluid 31 %; Monocytes Pleural Fluid 5 %; Neutrophils Pleural Fluid 3 % (0-25); Nucleated Cell Pleural Fluid 16 /uL (0-1000); RBC Pleural Fluid 27000 /uL (0-10000)
[2024-08-09 17:53] LABS: pH Pleural Fluid 7.462 (7.210-7.500)
== END 2024-08-09 14:20 | disposition home or self-care (01) ==
LOC: ANHED 08-08 00:33 → ANH3MEDSUR 08-09 12:10
PROVIDERS: Internal Medicine Pulmonary Disease; Nurse Practitioner Family; Admitting Provider Internal Medicine; Emergency Provider Emergency Medicine; PCP Family Medicine; Visit Provider General Practice
DX: C34.90 Malignant neoplasm of unspecified part of unspecified bronchus or lung (principal); J91.0 Malignant pleural effusion; E87.20 Acidosis, unspecified; F33.9 Major depressive disorder, recurrent, unspecified; Z85.89 Personal history of malignant neoplasm of other organs and systems; Z79.51 Long term (current) use of inhaled steroids; Z79.899 Other long term (current) drug therapy; Z87.891 Personal history of nicotine dependence
CPT/HCPCS: 32555; 36415; 71046; 80053; 83605; 83735; 83880; 83986; 84484; 85025; 85610; 85730; 87070; 87075; 87205; 89051; 93005; 96365; 96366; 96375; 99285; A9270; G0378; J2543; J7030